=== PATIENT | male | born 1960 | race American Indian/Alaskan Native ===

== ENCOUNTER 2016-09-27 18:17 | Emergency (ER) | payer OTHER ==
--- NOTE | 2016-09-27 19:22 | EDM.PDOC ---
ED HISTORY OF PRESENT ILLNESS - General Chief Complaint: Chest Pain Stated Complaint: CHEST PAINS Time Seen by Provider: 09/27/16 19:16 Source of Information: Reports: Patient History Limitations: Reports: No limitations - History of Present Illness INITIAL COMMENTS - FREE TEXT/NARRATIVE: 56 yo [place] Male C/O chest pain 8/10 since Wed. Pt. PMHx. Diabetes and smokes 1/2 pack cigs per week. Pt. describes left anterior chest pain which radiates to left shoulder and Nausea but no emesis and no sweating and no radiation to neck Symptom Onset Date: 09/23/16 Symptom Onset Time: 12:00 Timing/Duration: Reports: Day(s): Severity: moderate Location, General: Reports: chest Quality: Reports: Ache - Related Data Allergies/ADRs: Allergies Allergy/AdvReac Type Severity Reaction Status Date / Time No Known Allergies Allergy Verified 08/04/16 14:23 Home Meds: Home Meds Insulin Aspart [NovoLOG] 30 units SQ TIDAC 07/18/13 [History] Insulin Detemir [Levemir] 72 unit SQ BID 07/18/13 [History] Simvastatin [Zocor] 10 mg PO DAILY 07/18/13 [History] sitaGLIPtin Phos/Metformin HCl [Janumet Xr 100-1,000 mg Tablet] 1 each PO BID [History] Aspirin [Aspirin EC] 1 tab PO DAILY 04/15/14 [History] Multivitamin 1 tab PO DAILY 04/15/14 [History] Pregabalin [Lyrica] 1 tab PO BID 04/15/14 [History] Lisinopril [Prinivil] 10 mg PO DAILY 08/16/15 [History] oxyCODONE HCl/Acetaminophen [Percocet 10-325 mg Tablet] 1 tab PO BID 08/04/16 [ History] Past Medical History - Past Health History Medical/Surgical History: Denies Medical/Surgical History HEENT History: Reports: None, Impaired vision Cardiovascular History: Reports: High cholesterol, Hypertension Respiratory History: Reports: None Genitourinary History: Reports: None Musculoskeletal History: Reports: None, Fracture Neurological History: Reports: None Psychiatric History: Reports: None Endocrine/Metabolic History: Reports: Diabetes, type II - Infectious Disease History Infectious Disease History: Reports: None, Chicken pox, Shingles - Past Surgical History Cardiovascular Surgical History: Reports: None Musculoskeletal Surgical History: Reports: Other (see below) Other Musculoskeletal Surgeries/Procedures:: hand surgery Social & Family History - Family History Family Medical History: Noncontributory HEENT: Reports: None Cardiac: Reports: None Respiratory: Reports: None GI: Reports: None - Tobacco Use Smoking Status *Q: Current Every Day Smoker Years of Tobacco use: 40 Packs/Tins Daily: 0.5 Used Tobacco, but Quit: No Second Hand Smoke Exposure: No - Caffeine Use Caffeine Use: Reports: Coffee, Energy drinks, Soda Caffeine Use Comment: coffee daily & 2 sodas daily average - Alcohol Use Days Per Week of Alcohol Use: 0 - Recreational Drug Use Recreational Drug Use: No ED ROS GENERAL - Review of Systems Review Of Systems: See Below Constitutional: Reports: no symptoms HEENT: Reports: No symptoms Respiratory: Reports: no symptoms Cardiovascular: Reports: Chest pain (left anterior) Endocrine: Reports: no symptoms GI/Abdominal: Reports: No symptoms : Reports: no symptoms Musculoskeletal: Reports: muscle pain (left lateral chest wall) Skin: Reports: no symptoms Neurological: Reports: no symptoms Psychiatric: Reports: No symptoms Hematologic/Lymphatic: Reports: no symptoms Immunologic: Reports: no symptoms ED EXAM, GENERAL - Physical Exam Exam: See Below Exam Limited By: No limitations General Appearance: alert, WD/WN, no apparent distress, obese Eye Exam: bilateral eye: PERRL Ears: normal external exam Nose: normal inspection Throat/Mouth: Normal inspection Head: atraumatic Neck: normal inspection Respiratory/Chest: no respiratory distress, lungs clear, normal breath sounds Cardiovascular: normal peripheral pulses, regular rate, rhythm, no edema, other (left lateral chest wall w/ min tenderness) Back Exam: normal inspection, full range of motion Extremities: normal inspection, normal range of motion Neurological: alert, oriented, CN II-XII intact Psychiatric: normal affect, normal mood Skin Exam: Warm, Dry, Intact Lymphatic: no adenopathy Course - Vital Signs Last Recorded V/S: Last Vital Signs Temp 36.2 C 09/27/16 20:12 Pulse 79 09/27/16 20:12 Resp 14 09/27/16 20:12 BP 123/67 09/27/16 20:12 Pulse Ox 97 09/27/16 20:12 - Orders/Labs/Meds Orders: Active Orders 24 hr Category Date Time Status EKG 12 Lead [EKG Documentation Completion] [RC] URGENT Care 09/27/16 19:17 Active Chest 2V [CR] Urgent Exams 09/27/16 19:20 Taken Sodium Chloride 0.9% [Normal Saline] 250 ml Med 09/27/16 19:30 Active IV ASDIRECTED Medication Orders Sodium Chloride (Normal Saline) 250 mls @ 100 mls/hr IV ASDIRECTED JAVI Labs: Laboratory Tests 09/27/16 09/27/16 09/27/16 Range/Units 19:23 19:23 19:23 WBC 8.6 (5.0-10.0) 10^3/uL RBC 4.35 L (4.6-6.2) 10^6/uL Hgb 13.6 L (14.0-18.0) g/dL Hct 39.5 L (40.0-54.0) % MCV 90.8 (80-100) fL MCH 31.3 (27.0-34.0) pg MCHC 34.4 (33.0-35.0) g/dL Plt Count 297 (150-450) 10^3/uL Neut % (Auto) 59.7 (42.2-75.2) % Lymph % (Auto) 28.5 (20.5-50.1) % [place] % (Auto) 8.3 H (2-8) % Eos % (Auto) 2.9 (1.0-3.0) % Baso % (Auto) 0.6 (0.0-1.0) % D-Dimer, Quantitative < 100 (0-400) ng/mL Sodium 136 (135-145) mmol/L Potassium 4.0 (3.6-5.0) mmol/L Chloride 103 (101-111) mmol/L Carbon Dioxide 26.0 (21.0-31.0) mmol/L Anion Gap 11.0 BUN 23 H (7-18) mg/dL Creatinine 0.8 (0.6-1.3) mg/dL Est Cr Clr Drug Dosing 111.12 mL/min Estimated GFR (MDRD) > 60 BUN/Creatinine Ratio 28.75 Glucose 279 H (74-105) mg/dL Calcium 9.3 (8.4-10.2) mg/dl Total Bilirubin 0.4 (0.2-1.0) mg/dL AST 18 (10-42) IU/L ALT 27 (10-60) IU/L Alkaline Phosphatase 71 (42-121) IU/L Troponin I < 0.02 (0.00-0.02) ng/ml Total Protein 7.0 (6.7-8.2) g/dl Albumin 3.8 (3.2-5.5) g/dl Globulin 3.2 Albumin/Globulin Ratio 1.19 Meds: Medications Generic Name Dose Route Start Last Admin Trade Name Freq PRN Reason Stop Dose Admin Sodium Chloride 250 mls @ 100 mls/hr 09/27/16 19:30 Normal Saline IV ASDIRECTED JAVI Discontinued Medications Generic Name Dose Route Start Last Admin Trade Name Freq PRN Reason Stop Dose Admin Acetaminophen 500 mg 09/27/16 20:33 Tylenol Extra Strength PO 09/27/16 20:34 ONETIME ONE Aspirin 324 mg 09/27/16 19:24 Aspirin PO 09/27/16 19:25 ONETIME ONE Departure - Departure Time of Disposition: 20:38 Disposition: Home, Self-Care 01 Condition: good Clinical Impression: Non-cardiac chest pain Forms: ED Department Discharge Additional Instructions: Rest Stop Smoking For PAin take Tylenol Extra Strength 500mg take 1 every 4-6 hours as needed F/U w/ PCP - My Orders Last 24 Hours: My Active Orders 09/27/16 19:17 EKG 12 Lead [EKG Documentation Completion] [RC] URGENT 09/27/16 19:20 Chest 2V [CR] Urgent 09/27/16 19:30 Sodium Chloride 0.9% [Normal Saline] 250 ml IV ASDIRECTED - Assessment/Plan Last 24 Hours: My Active Orders 09/27/16 19:17 EKG 12 Lead [EKG Documentation Completion] [RC] URGENT 09/27/16 19:20 Chest 2V [CR] Urgent 09/27/16 19:30 Sodium Chloride 0.9% [Normal Saline] 250 ml IV ASDIRECTED
[2016-09-27] MEDS ORDERED: Aspirin 81 MG Tab.Chew PO ONE (19:24)
[2016-09-27] MEDS ORDERED: Sodium Chloride 0.9% 250 ML IV SCH (19:30)
[2016-09-27 19:53] LABS: CHLORIDE,CL 103 mmol/L (101-111); SODIUM,NA 136 mmol/L (135-145)
[2016-09-27] MEDS ORDERED: Acetaminophen 500 MG Tab PO ONE (20:33)
[2016-09-27 20:56] VITALS: BP 130/67
--- NOTE | 2016-10-19 08:48 | EKG ---
09/27/2016- MARTA DAMON - This is a standard 12-lead EKG showing normal sinus rhythm with ventricular rateof 84 beats per minute. Normal TN interval. Normal QRS duration. Normal axis.No significant ST-T changes. Normal EKG. [facility] /[id number] MTDD
== END 2016-09-27 20:58 | disposition home or self-care (01) ==
LOC: DL.ED 18:17
DX: R07.89 Other chest pain (principal); E78.00 Pure hypercholesterolemia, unspecified; I10 Essential (primary) hypertension; E11.9 Type 2 diabetes mellitus without complications; F17.210 Nicotine dependence, cigarettes, uncomplicated; Z79.4 Long term (current) use of insulin; Z79.82 Long term (current) use of aspirin; Z79.899 Other long term (current) drug therapy
CPT/HCPCS: 36415; 71020; 80053; 84484; 85025; 85379; 93005; 99285; A9270

== ENCOUNTER 2016-12-16 22:06 | Emergency (ER) | payer OTHER ==
[2016-12-16 22:17] VITALS: BP 115/69
[2016-12-16 23:44] LABS: CHLORIDE,CL 101 mmol/L (101-111); SODIUM,NA 133 mmol/L (135-145)
--- NOTE | 2016-12-16 23:53 | EDM.PDOC ---
{null, ED HPI GENERAL MEDICAL PROBLEM - General Chief Complaint: Back Pain or Injury Stated Complaint: PAIN IN THE BACK Time Seen by Provider: 12/16/16 23:04 Source of Information: Reports: Patient History Limitations: Reports: No Limitations - History of Present Illness INITIAL COMMENTS - FREE TEXT/NARRATIVE: c/o right flank pain for past 3 months,intermittent, worse tonight, has not tried anything for medication. On oxycodone , flexeril and lyrica at home. Heat has helped in past but has not used today. 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) Treatments [employer]: Reports: Other Medication(s) Middle Back Pain Score (Numeric/FACES): 6 - Related Data Allergies Allergy/AdvReac Type Severity Reaction Status Date / Time No Known Allergies Allergy Verified 12/16/16 22:13 Home Meds: Home Meds Insulin Aspart [NovoLOG] 30 units SQ TIDAC 07/18/13 [History] Insulin Detemir [Levemir] 72 unit SQ BID 07/18/13 [History] Simvastatin [Zocor] 10 mg PO DAILY 07/18/13 [History] sitaGLIPtin Phos/Metformin HCl [Janumet Xr 100-1,000 mg Tablet] 1 each PO BID [History] Aspirin [Aspirin EC] 1 tab PO DAILY 04/15/14 [History] Multivitamin 1 tab PO DAILY 04/15/14 [History] Pregabalin [Lyrica] 1 tab PO BID 04/15/14 [History] Lisinopril [Prinivil] 10 mg PO DAILY 08/16/15 [History] oxyCODONE HCl/Acetaminophen [Percocet 10-325 mg Tablet] 1 tab PO BID 08/04/16 [ History] Past Medical History - Past Health History Medical/Surgical History: Denies Medical/Surgical History HEENT History: Reports: None, Impaired Vision Cardiovascular History: Reports: High Cholesterol, Hypertension Respiratory History: Reports: None Genitourinary History: Reports: None Musculoskeletal History: Reports: None, Fracture Neurological History: Reports: None Psychiatric History: Reports: None Endocrine/Metabolic History: Reports: Diabetes, Type II - Infectious Disease History Infectious Disease History: Reports: None, Chicken Pox, Shingles - Past Surgical History Musculoskeletal Surgical History: Reports: Other (See Below) Social & Family History - Family History Family Medical History: Noncontributory HEENT: Reports: None Cardiac: Reports: None Respiratory: Reports: None GI: Reports: None - Tobacco Use Smoking Status *Q: Current Some Day Smoker Years of Tobacco use: 40 Packs/Tins Daily: 0.1 Used Tobacco, but Quit: No Second Hand Smoke Exposure: No - Caffeine Use Caffeine Use: Reports: Coffee, Energy Drinks Caffeine Use Comment: coffee daily & 2 sodas daily average - Alcohol Use Days Per Week of Alcohol Use: 0 - Recreational Drug Use Recreational Drug Use: No ED ROS GENERAL - Review of Systems Review Of Systems: See Below Constitutional: Reports: No Symptoms HEENT: Reports: No Symptoms Respiratory: Reports: No Symptoms Cardiovascular: Reports: No Symptoms Endocrine: Reports: High Glucose (chronic) GI/Abdominal: Reports: No Symptoms : Reports: No Symptoms Musculoskeletal: Reports: Back Pain (right flank), Other (hx chronic low back pain) Skin: Reports: No Symptoms Neurological: Reports: No Symptoms ED EXAM,LOWER BACK PAIN/INJURY - Physical Exam Exam: See Below Exam Limited By: No Limitations General Appearance: Alert, No Apparent Distress, Obese Eye Exam: Bilateral Eye: PERRL Ears: Normal External Exam, Hearing Loss Throat/Mouth: Normal Inspection Neck: Normal Inspection, Full Range of Motion Respiratory/Chest: No Respiratory Distress, Lungs Clear Cardiovascular: Normal Peripheral Pulses, Regular Rate, Rhythm GI/Abdominal: Soft (round, truncal obesity) Back Exam: CVA Tenderness (R), Paraspinal Tenderness Extremities: Normal Inspection, Normal Range of Motion. No: Pedal Edema Neurological: Alert, Normal Mood/Affect, Normal Dorsiflexion, Oriented x 3, Straight Leg Raise (L) (negative), Straight Leg Raise (R) (negative). No: Abnormal Gait Skin Exam: Warm, Dry, Intact Course - Vital Signs Last Recorded V/S: Last Vital Signs Temp 97.5 F 12/16/16 22:13 Pulse 94 12/16/16 22:13 Resp 20 12/16/16 22:13 BP 115/69 12/16/16 22:13 Pulse Ox 97 12/16/16 22:13 - Orders/Labs/Meds Labs: Laboratory Tests 12/16/16 12/16/16 12/16/16 Range/Units 23:18 23:18 23:19 WBC 11.6 H (5.0-10.0) 10^3/uL RBC 4.67 (4.6-6.2) 10^6/uL Hgb 14.5 (14.0-18.0) g/dL Hct 42.3 (40.0-54.0) % MCV 90.6 (80-100) fL MCH 31.0 (27.0-34.0) pg MCHC 34.3 (33.0-35.0) g/dL Plt Count 309 (150-450) 10^3/uL Neut % (Auto) 70.3 (42.2-75.2) % Lymph % (Auto) 19.9 L (20.5-50.1) % [place] % (Auto) 6.8 (2-8) % Eos % (Auto) 2.5 (1.0-3.0) % Baso % (Auto) 0.5 (0.0-1.0) % Sodium 133 L (135-145) mmol/L Potassium 3.7 (3.6-5.0) mmol/L Chloride 101 (101-111) mmol/L Carbon Dioxide 26.0 (21.0-31.0) mmol/L Anion Gap 9.7 BUN 17 (7-18) mg/dL Creatinine 0.7 (0.6-1.3) mg/dL Est Cr Clr Drug Dosing 126.99 mL/min Estimated GFR (MDRD) > 60 BUN/Creatinine Ratio 24.28 Glucose 303 H (74-105) mg/dL Calcium 9.2 (8.4-10.2) mg/dl Total Bilirubin 0.5 (0.2-1.0) mg/dL AST 20 (10-42) IU/L ALT 30 (10-60) IU/L Alkaline Phosphatase 66 (42-121) IU/L Total Protein 7.5 (6.7-8.2) g/dl Albumin 4.0 (3.2-5.5) g/dl Globulin 3.5 Albumin/Globulin Ratio 1.14 Amylase 27 L (28-100) U/L Urine Color Yellow (YELLOW) Urine Appearance Clear (CLEAR) Urine pH 5.5 (5.0-9.0) Ur Specific [place] 1.020 (1.005-1.030) Urine Protein Negative (NEGATIVE) Urine Glucose (UA) 500 H (NEGATIVE) Urine Ketones Negative (NEGATIVE) Urine Occult Blood Negative (NEGATIVE) Urine Nitrite Negative (NEGATIVE) Urine Bilirubin Negative (NEGATIVE) Urine Urobilinogen 0.2 (0.2-1.0) mg/dL Ur Leukocyte Esterase Negative (NEGATIVE) Urine RBC 0-5 /HPF Urine WBC 0-5 (0-5/HPF) /HPF Ur Epithelial Cells Few /HPF Urine Mucus Occasional /LPF Urine Opiates Screen (NEGATIVE) Ur Oxycodone Screen (NEGATIVE) Urine Methadone Screen (NEGATIVE) Ur Barbiturates Screen (NEGATIVE) U Tricyclic Antidepress (NEGATIVE) Ur Phencyclidine Scrn (NEGATIVE) Ur Amphetamine Screen (NEGATIVE) U Methamphetamines Scrn (NEGATIVE) Urine MDMA Screen (NEGATIVE) U Benzodiazepines Scrn (NEGATIVE) Urine Cocaine Screen (NEGATIVE) U Marijuana (THC) Screen (NEGATIVE) 12/16/16 Range/Units 23:19 WBC (5.0-10.0) 10^3/uL RBC (4.6-6.2) 10^6/uL Hgb (14.0-18.0) g/dL Hct (40.0-54.0) % MCV (80-100) fL MCH (27.0-34.0) pg MCHC (33.0-35.0) g/dL Plt Count (150-450) 10^3/uL Neut % (Auto) (42.2-75.2) % Lymph % (Auto) (20.5-50.1) % [place] % (Auto) (2-8) % Eos % (Auto) (1.0-3.0) % Baso % (Auto) (0.0-1.0) % Sodium (135-145) mmol/L Potassium (3.6-5.0) mmol/L Chloride (101-111) mmol/L Carbon Dioxide (21.0-31.0) mmol/L Anion Gap BUN (7-18) mg/dL Creatinine (0.6-1.3) mg/dL Est Cr Clr Drug Dosing mL/min Estimated GFR (MDRD) BUN/Creatinine Ratio Glucose (74-105) mg/dL Calcium (8.4-10.2) mg/dl Total Bilirubin (0.2-1.0) mg/dL AST (10-42) IU/L ALT (10-60) IU/L Alkaline Phosphatase (42-121) IU/L Total Protein (6.7-8.2) g/dl Albumin (3.2-5.5) g/dl Globulin Albumin/Globulin Ratio Amylase (28-100) U/L Urine Color (YELLOW) Urine Appearance (CLEAR) Urine pH (5.0-9.0) Ur Specific [place] (1.005-1.030) Urine Protein (NEGATIVE) Urine Glucose (UA) (NEGATIVE) Urine Ketones (NEGATIVE) Urine Occult Blood (NEGATIVE) Urine Nitrite (NEGATIVE) Urine Bilirubin (NEGATIVE) Urine Urobilinogen (0.2-1.0) mg/dL Ur Leukocyte Esterase (NEGATIVE) Urine RBC /HPF Urine WBC (0-5/HPF) /HPF Ur Epithelial Cells /HPF Urine Mucus /LPF Urine Opiates Screen Negative (NEGATIVE) Ur Oxycodone Screen Positive H (NEGATIVE) Urine Methadone Screen Negative (NEGATIVE) Ur Barbiturates Screen Negative (NEGATIVE) U Tricyclic Antidepress Negative (NEGATIVE) Ur Phencyclidine Scrn Negative (NEGATIVE) Ur Amphetamine Screen Negative (NEGATIVE) U Methamphetamines Scrn Negative (NEGATIVE) Urine MDMA Screen Negative (NEGATIVE) U Benzodiazepines Scrn Negative (NEGATIVE) Urine Cocaine Screen Negative (NEGATIVE) U Marijuana (THC) Screen Negative (NEGATIVE) Departure - Departure Time of Disposition: 23:53 Disposition: Home, Self-Care 01 Condition: good Clinical Impression: Muscle spasm - Discharge Information Instructions: Chronic Back Pain Forms: ED Department Discharge Additional Instructions: follow with primary care ibuprofen 600mg every 8 hours as needed for pain warm pack to right flank area }
== END 2016-12-17 00:02 | disposition home or self-care (01) ==
LOC: DL.ED 22:06
DX: M62.830 Muscle spasm of back (principal); E78.00 Pure hypercholesterolemia, unspecified; I10 Essential (primary) hypertension; E11.9 Type 2 diabetes mellitus without complications; F17.210 Nicotine dependence, cigarettes, uncomplicated; Z79.4 Long term (current) use of insulin; Z79.82 Long term (current) use of aspirin; Z79.899 Other long term (current) drug therapy
CPT/HCPCS: 36415; 80053; 80305; 81001; 82150; 85025; 99283

== ENCOUNTER 2017-05-03 21:20 | Emergency (ER) | payer OTHER | END 2017-05-03 21:49 | disposition left against medical advice (07) | LOC: DL.ED 21:20 | DX: Z53.21 Procedure and treatment not carried out due to patient leaving prior to being seen by health care provider (principal) ==

== ENCOUNTER 2017-05-04 10:59 | Emergency (ER) | payer OTHER ==
--- NOTE | 2017-05-04 11:22 | EDM.PDOC ---
ED HPI GENERAL MEDICAL PROBLEM - General Chief Complaint: General Stated Complaint: PAIN IN [place] Time Seen by Provider: 05/04/17 11:22 Source of Information: Reports: Patient, RN, RN Notes Reviewed History Limitations: Reports: No Limitations - History of Present Illness INITIAL COMMENTS - FREE TEXT/NARRATIVE: Patient presents to the ER with c/o an abscess on his scrotum. Patient states he began noticing the area 2-3 days ago. He admits to aches and chills beginning yesterday, headaches for the past 2 days, and nausea for the past 24 hours. He states this has happened in the past and he was sent to in [place] where it was I&D'd and he was kept in the hospital for IV antibiotics for 4 days. Onset: Gradual Onset Date: 05/01/17 Duration: Constant, Getting Worse Location: Reports: Other (scrotum) Quality: Reports: Ache Severity: Severe Improves with: Reports: None Worsens with: Reports: None Associated Symptoms: Reports: Fever/Chills, Headaches, Nausea/Vomiting Perineal Area Pain Score (Numeric/FACES): 10 - Related Data Allergies Allergy/AdvReac Type Severity Reaction Status Date / Time No Known Allergies Allergy Verified 12/16/16 22:13 Home Meds: Home Meds Insulin Aspart [NovoLOG] 25 units SQ TIDAC 07/18/13 [History] Insulin Detemir [Levemir] 85 unit SQ BID 07/18/13 [History] Simvastatin [Zocor] 20 mg PO DAILY 07/18/13 [History] sitaGLIPtin Phos/Metformin HCl [Janumet Xr 100-1,000 mg Tablet] 1 each PO BID [History] Aspirin [Aspirin EC] 1 tab PO DAILY 04/15/14 [History] Multivitamin 1 tab PO DAILY 04/15/14 [History] Pregabalin [Lyrica] 1 tab PO BID 04/15/14 [History] Lisinopril [Prinivil] 10 mg PO DAILY 08/16/15 [History] oxyCODONE HCl/Acetaminophen [Percocet 10-325 mg Tablet] 1 tab PO BID 08/04/16 [ History] Past Medical History - Past Health History Medical/Surgical History: Denies Medical/Surgical History HEENT History: Reports: Impaired Vision Cardiovascular History: Reports: High Cholesterol, Hypertension Respiratory History: Reports: None Genitourinary History: Reports: None Musculoskeletal History: Reports: Fracture Neurological History: Reports: None Psychiatric History: Reports: None Endocrine/Metabolic History: Reports: Diabetes, Type II - Infectious Disease History Infectious Disease History: Reports: Chicken Pox, Shingles - Past Surgical History Musculoskeletal Surgical History: Reports: Other (See Below) Social & Family History - Family History Family Medical History: Noncontributory HEENT: Reports: None Cardiac: Reports: None Respiratory: Reports: None GI: Reports: None - Tobacco Use Smoking Status *Q: Current Some Day Smoker Years of Tobacco use: 40 Packs/Tins Daily: 0.1 Used Tobacco, but Quit: No Second Hand Smoke Exposure: No - Caffeine Use Caffeine Use: Reports: Coffee, Soda Caffeine Use Comment: coffee daily & 2 sodas daily average - Alcohol Use Days Per Week of Alcohol Use: 0 - Recreational Drug Use Recreational Drug Use: No ED ROS GENERAL - Review of Systems Review Of Systems: ROS reveals no pertinent complaints other than HPI. ED EXAM, GENERAL - Physical Exam Exam: See Below Exam Limited By: No Limitations General Appearance: Alert, WD/WN, No Apparent Distress Eye Exam: Bilateral Eye: Normal Inspection, PERRL Ears: Normal External Exam, Hearing Grossly Normal Nose: Normal Inspection Throat/Mouth: Normal Inspection, Normal Lips, Normal Voice, No Airway Compromise Head: Atraumatic, Normocephalic Neck: Normal Inspection, Supple, Non-Tender, Full Range of Motion Respiratory/Chest: No Respiratory Distress, Lungs Clear, Normal Breath Sounds, No Accessory Muscle Use, Chest Non-Tender Cardiovascular: Normal Peripheral Pulses, Regular Rate, Rhythm, No Edema, No Gallop, No JVD, No Murmur, No Rub GI/Abdominal: Normal Bowel Sounds, Soft (Male) Exam: Scrotal Swelling, Scrotum Tenderness (L), Scrotum Tenderness (R) , Other (4.5cmx3.5cm abscess on the scrotum/penis shaft. Area is erythematous, hard, and warm with a necrotic appearing area in the center. ) Rectal (Males) Exam: Deferred Back Exam: Normal Inspection, Full Range of Motion, NT Extremities: Normal Inspection, Normal Range of Motion, Non-Tender, Normal Capillary Refill, No Pedal Edema Neurological: Alert, Oriented, Normal Cognition, Normal Gait, No Motor/Sensory Deficits Psychiatric: Normal Affect, Normal Mood Skin Exam: Warm, Erythema, Wound/Incision (scrotum) Lymphatic: No Adenopathy Course - Vital Signs Last Recorded V/S: Last Vital Signs Temp 98 F 05/04/17 12:42 Pulse 80 05/04/17 12:42 Resp 16 05/04/17 12:42 BP 130/73 05/04/17 12:42 Pulse Ox 95 05/04/17 12:42 - Orders/Labs/Meds Orders: Active Orders 24 hr Category Date Time Status Peripheral IV Care [RC] . DIRECTED Care 05/04/17 11:33 Active CULTURE BLOOD [BC] Stat Lab 05/04/17 11:40 Received CULTURE BLOOD [BC] Stat Lab 05/04/17 11:48 Received Blood Culture x2 Reflex Set [OM.PC] Stat Oth 05/04/17 11:30 Ordered Peripheral IV Insertion Adult [OM.PC] Stat Oth 05/04/17 11:33 Ordered Labs: Laboratory Tests 05/04/17 05/04/17 05/04/17 Range/Units 11:40 11:40 11:40 WBC 12.5 H (5.0-10.0) 10^3/uL RBC 4.38 L (4.6-6.2) 10^6/uL Hgb 13.7 L (14.0-18.0) g/dL Hct 39.9 L (40.0-54.0) % MCV 91.1 (80-100) fL MCH 31.3 (27.0-34.0) pg MCHC 34.3 (33.0-35.0) g/dL Plt Count 266 (150-450) 10^3/uL Neut % (Auto) 79.9 H (42.2-75.2) % Lymph % (Auto) 12.2 L (20.5-50.1) % [place] % (Auto) 6.1 (2-8) % Eos % (Auto) 1.4 (1.0-3.0) % Baso % (Auto) 0.4 (0.0-1.0) % Sodium 133 L (135-145) mmol/L Potassium 4.5 (3.6-5.0) mmol/L Chloride 99 L (101-111) mmol/L Carbon Dioxide 24.0 (21.0-31.0) mmol/L Anion Gap 14.5 BUN 16 (7-18) mg/dL Creatinine 0.7 (0.6-1.3) mg/dL Est Cr Clr Drug Dosing TNP Estimated GFR (MDRD) > 60 BUN/Creatinine Ratio 22.85 Glucose 368 H (74-105) mg/dL Lactic Acid 1.7 (0.5-2.2) mmol/L Calcium 8.9 (8.4-10.2) mg/dl Total Bilirubin 0.9 (0.2-1.0) mg/dL AST 20 (10-42) IU/L ALT 24 (10-60) IU/L Alkaline Phosphatase 67 (42-121) IU/L Total Protein 7.4 (6.7-8.2) g/dl Albumin 3.8 (3.2-5.5) g/dl Globulin 3.6 Albumin/Globulin Ratio 1.06 Meds: Medications Discontinued Medications Generic Name Dose Route Start Last Admin Trade Name Freq PRN Reason Stop Dose Admin Hydromorphone HCl 0.5 mg 05/04/17 11:33 05/04/17 11:47 Dilaudid IVPUSH 05/04/17 11:34 0.5 mg ONETIME ONE Administration Ceftriaxone Sodium 1 gm/ 50 mls @ 100 mls/hr 05/04/17 12:28 05/04/17 12:41 Sodium Chloride IV 05/04/17 12:57 100 mls/hr ONETIME ONE Administration Sodium Chloride 10 ml 05/04/17 11:33 05/04/17 11:48 Saline Flush FLUSH 10 ml ASDIRECTED PRN Administration Keep Vein Open - Re-Assessments/Exams Free Text/Narrative Re-Assessment/Exam: 05/04/17 12:47 [facility] call contacted for possible transfer of the patient for possible surgical debridement of scrotal abscess. Dr. Ribeiro was asked what antibiotics were recommended and he offered ceftriaxone. Departure - Departure Time of Disposition: 12:42 Disposition: DC/Tfer to Acute Hospital 02 Condition: Good Clinical Impression: Scrotal abscess - Discharge Information Referrals: PCP,None [Primary Care Provider] - Forms: ED Department Discharge, Interfacility Transfer EMTALA - My Orders Last 24 Hours: My Active Orders 05/04/17 11:30 Blood Culture x2 Reflex Set [OM.PC] Stat 05/04/17 11:33 Peripheral IV Care [RC] . DIRECTED Peripheral IV Insertion Adult [OM.PC] Stat 05/04/17 11:40 CULTURE BLOOD [BC] Stat 05/04/17 11:48 CULTURE BLOOD [BC] Stat - Assessment/Plan Last 24 Hours: My Active Orders 05/04/17 11:30 Blood Culture x2 Reflex Set [OM.PC] Stat 05/04/17 11:33 Peripheral IV Care [RC] . DIRECTED Peripheral IV Insertion Adult [OM.PC] Stat 05/04/17 11:40 CULTURE BLOOD [BC] Stat 05/04/17 11:48 CULTURE BLOOD [BC] Stat
[2017-05-04] MEDS ORDERED: Sodium Chloride 0.9% 10 ML Syringe FLUSH PRN (11:33)
[2017-05-04] MEDS ORDERED: HYDROmorphone 1 MG/ML Syringe IVPUSH ONE (11:33)
[2017-05-04 12:15] LABS: CHLORIDE,CL 99 mmol/L (101-111); SODIUM,NA 133 mmol/L (135-145)
[2017-05-04] MEDS ORDERED: cefTRIAXone 1 GM in Sodium Chloride 0.9% 50 ML IV ONE (12:28)
[2017-05-04 12:49] VITALS: BP 130/73
== END 2017-05-04 12:55 ==
LOC: DL.ED 10:59
DX: N49.2 Inflammatory disorders of scrotum (principal); I10 Essential (primary) hypertension; E78.00 Pure hypercholesterolemia, unspecified; E11.9 Type 2 diabetes mellitus without complications; F17.210 Nicotine dependence, cigarettes, uncomplicated; Z79.82 Long term (current) use of aspirin; Z79.4 Long term (current) use of insulin; Z79.899 Other long term (current) drug therapy
CPT/HCPCS: 36415; 80053; 83605; 85025; 87040; 96365; 96375; 99285; J0696; J1170; J7050

== ENCOUNTER 2017-07-14 00:21 | Emergency (ER) | payer OTHER ==
--- NOTE | 2017-07-14 03:42 | EDM.PDOC ---
ED HPI GENERAL MEDICAL PROBLEM - General Chief Complaint: General Stated Complaint: FELL 07/13, RENETTA MICHEL [id number] Time Seen by Provider: 07/14/17 00:45 Source of Information: Reports: Patient History Limitations: Reports: No Limitations - History of Present Illness INITIAL COMMENTS - FREE TEXT/NARRATIVE: c/o pain to left anterior ribs after slipping on ice and falling to ground yesterday afternoon. Increased pain with movement. Left Lower Chest Pain Score (Numeric/FACES): 7 - Related Data Allergies Allergy/AdvReac Type Severity Reaction Status Date / Time No Known Allergies Allergy Verified 07/14/17 00:51 Home Meds: Home Meds Insulin Aspart [NovoLOG] 25 units SQ TIDAC 07/18/13 [History] Insulin Detemir [Levemir] 85 unit SQ BID 07/18/13 [History] Simvastatin [Zocor] 20 mg PO DAILY 07/18/13 [History] sitaGLIPtin Phos/Metformin HCl [Janumet Xr 100-1,000 mg Tablet] 1 each PO BID [History] Aspirin [Aspirin EC] 1 tab PO DAILY 04/15/14 [History] Multivitamin 1 tab PO DAILY 04/15/14 [History] Pregabalin [Lyrica] 1 tab PO BID 04/15/14 [History] Lisinopril [Prinivil] 10 mg PO DAILY 08/16/15 [History] oxyCODONE HCl/Acetaminophen [Percocet 10-325 mg Tablet] 1 tab PO BID 08/04/16 [ History] Past Medical History - Past Health History Medical/Surgical History: Denies Medical/Surgical History HEENT History: Reports: Impaired Vision Cardiovascular History: Reports: High Cholesterol, Hypertension Respiratory History: Reports: None Genitourinary History: Reports: None Musculoskeletal History: Reports: Fracture Neurological History: Reports: None Psychiatric History: Reports: None Endocrine/Metabolic History: Reports: Diabetes, Type II - Infectious Disease History Infectious Disease History: Reports: Chicken Pox, Shingles - Past Surgical History Musculoskeletal Surgical History: Reports: Other (See Below) Social & Family History - Family History Family Medical History: Noncontributory HEENT: Reports: None Cardiac: Reports: None Respiratory: Reports: None GI: Reports: None - Tobacco Use Smoking Status *Q: Current Some Day Smoker Years of Tobacco use: 41 Packs/Tins Daily: 8 Used Tobacco, but Quit: No Second Hand Smoke Exposure: No - Caffeine Use Caffeine Use: Reports: Coffee, Energy Drinks, Soda, Tea Caffeine Use Comment: coffee daily & 2 sodas daily average - Alcohol Use Days Per Week of Alcohol Use: 0 - Recreational Drug Use Recreational Drug Use: No ED ROS GENERAL - Review of Systems Review Of Systems: See Below Constitutional: Reports: No Symptoms HEENT: Reports: No Symptoms Respiratory: Reports: Pleuritic Chest Pain Cardiovascular: Reports: No Symptoms GI/Abdominal: Reports: No Symptoms Musculoskeletal: Reports: Other (left rib pain) Skin: Denies: Bruising Neurological: Reports: No Symptoms Psychiatric: Reports: No Symptoms ED EXAM, GENERAL - Physical Exam Exam: See Below Exam Limited By: No Limitations General Appearance: Alert, No Apparent Distress Eye Exam: Bilateral Eye: EOMI Ears: Normal External Exam Nose: Normal Inspection Throat/Mouth: Normal Inspection Head: Atraumatic, Normocephalic Respiratory/Chest: No Respiratory Distress, Lungs Clear, Normal Breath Sounds, Other (anterolateral left rib pain with palpation, no bruising) Cardiovascular: Normal Peripheral Pulses, Regular Rate, Rhythm GI/Abdominal: Normal Bowel Sounds, Soft, Non-Tender Extremities: Normal Inspection Neurological: Alert, Oriented, Normal Cognition Psychiatric: Normal Affect Skin Exam: Warm, Dry, Intact, Normal Color Course - Vital Signs Last Recorded V/S: Last Vital Signs Temp 96.9 F 07/14/17 03:48 Pulse 83 07/14/17 03:48 Resp 16 07/14/17 03:48 BP 125/64 07/14/17 03:48 Pulse Ox 94 L 07/14/17 03:48 Departure - Departure Time of Disposition: 03:39 Disposition: Home, Self-Care 01 Condition: Good Clinical Impression: Rib pain on left side - Discharge Information Instructions: Rib Contusion Referrals: PCP,None [Primary Care Provider] - Forms: ED Department Discharge Additional Instructions: rest home medications per primary provider warm towel to left lower chest ibuprofen 600mg every 6 hours deep breathing every hour while awake
[2017-07-14 03:49] VITALS: BP 125/64
== END 2017-07-14 03:51 | disposition home or self-care (01) ==
LOC: DL.ED 00:21
DX: R07.81 Pleurodynia (principal); E11.9 Type 2 diabetes mellitus without complications; F17.210 Nicotine dependence, cigarettes, uncomplicated; Z79.4 Long term (current) use of insulin; Z79.82 Long term (current) use of aspirin; Z79.899 Other long term (current) drug therapy; W00.0XXA Fall on same level due to ice and snow, initial encounter
CPT/HCPCS: 71101-LT; 99283

== ENCOUNTER 2018-02-03 22:18 | Emergency (ER) | payer OTHER ==
[2018-02-04 00:29] LABS: CHLORIDE,CL 100 mmol/L (101-111); SODIUM,NA 134 mmol/L (135-145)
[2018-02-04] MEDS ORDERED: Sodium Chloride 0.9% 1,000 ML IV ONE (00:58)
[2018-02-04] MEDS ORDERED: Sodium Chloride 0.9% 10 ML Syringe FLUSH PRN (00:58)
[2018-02-04] MEDS ORDERED: Levofloxacin/Dextrose 5%-Water 500 MG in Premix Bag 1 BAG IV ONE (00:58)
--- NOTE | 2018-02-04 02:39 | EDM.PDOC ---
ED HPI GENERAL MEDICAL PROBLEM - General Chief Complaint: Abdominal Pain Stated Complaint: [id number] ab PAIN AND LOWER BACK PAIN Time Seen by Provider: 02/04/18 00:50 Source of Information: Reports: Patient, RN, RN Notes Reviewed History Limitations: Reports: No Limitations - History of Present Illness INITIAL COMMENTS - FREE TEXT/NARRATIVE: Pt to ER with c/o low abdominal pain, wraps around to the back, and urination slowing. He states symptoms began about 3-4 days ago and getting much worse yesterday and today. Patient admits to chills, fever, lethargy, and nausea. Patient also c/o swelling to the left lower leg, with some bruising to the inside of the left ankle. Denies trauma or injury Onset: Gradual Bilateral Lower Abdomen Pain Score (Numeric/FACES): 7 - Related Data Allergies Allergy/AdvReac Type Severity Reaction Status Date / Time No Known Allergies Allergy Verified 02/03/18 23:02 Home Meds: Home Meds Insulin Aspart [NovoLOG] 30 units SQ TIDAC 07/18/13 [History] Insulin Detemir [Levemir] 100 unit SQ BID 07/18/13 [History] Simvastatin [Zocor] 20 mg PO DAILY 07/18/13 [History] sitaGLIPtin Phos/Metformin HCl [Janumet Xr 100-1,000 mg Tablet] 1 each PO BID [History] Aspirin [Aspirin EC] 1 tab PO DAILY 04/15/14 [History] Multivitamin 1 tab PO DAILY 04/15/14 [History] Pregabalin [Lyrica] 1 tab PO BID 04/15/14 [History] Lisinopril [Prinivil] 10 mg PO DAILY 08/16/15 [History] Past Medical History - Past Health History Medical/Surgical History: Denies Medical/Surgical History HEENT History: Reports: Impaired Vision Cardiovascular History: Reports: High Cholesterol, Hypertension Respiratory History: Reports: None Genitourinary History: Reports: None Musculoskeletal History: Reports: Fracture Neurological History: Reports: None Psychiatric History: Reports: None Endocrine/Metabolic History: Reports: Diabetes, Type II - Infectious Disease History Infectious Disease History: Reports: Chicken Pox, Shingles - Past Surgical History Musculoskeletal Surgical History: Reports: Other (See Below) Other Musculoskeletal Surgeries/Procedures:: hand surgery Social & Family History - Family History Family Medical History: Noncontributory HEENT: Reports: None Cardiac: Reports: None Respiratory: Reports: None GI: Reports: None - Tobacco Use Smoking Status *Q: Current Some Day Smoker Years of Tobacco use: 40 Packs/Tins Daily: 0.1 Second Hand Smoke Exposure: Yes - Caffeine Use Caffeine Use: Reports: Coffee, Energy Drinks, Soda, Tea Caffeine Use Comment: coffee daily & 2 sodas daily average - Recreational Drug Use Recreational Drug Use: No - Living Situation & Occupation Living situation: Reports: with Family ED ROS GENERAL - Review of Systems Review Of Systems: ROS reveals no pertinent complaints other than HPI. ED EXAM, RENAL/ - Physical Exam Exam: See Below Exam Limited By: No Limitations General Appearance: Alert, WD/WN, No Apparent Distress Eye Exam: Bilateral Eye: EOMI, Normal Inspection Ears: Normal External Exam, Hearing Grossly Normal Nose: Normal Inspection Throat/Mouth: Normal Inspection, Normal Voice, No Airway Compromise Head: Atraumatic, Normocephalic Neck: Normal Inspection, Supple, Non-Tender, Full Range of Motion Respiratory/Chest: No Respiratory Distress, Lungs Clear, Normal Breath Sounds, No Accessory Muscle Use, Chest Non-Tender Cardiovascular: Normal Peripheral Pulses, Regular Rate, Rhythm, No Edema, No Gallop, No JVD, No Murmur, No Rub GI/Abdominal: Normal Bowel Sounds, Soft, Tender (Male) Exam: Deferred Rectal (Males) Exam: Deferred Back Exam: Normal Inspection, CVA Tenderness (L), CVA Tenderness (R) Extremities: Normal Range of Motion, Joint Swelling (left ankle). No: Leg Pain , Increased Warmth, Redness Neurological: Alert, Oriented, CN II-XII Intact, Normal Cognition, Normal Gait, Normal Reflexes, No Motor/Sensory Deficits Psychiatric: Normal Affect, Normal Mood Skin Exam: Warm, Dry, Intact, Normal Color, No Rash Lymphatic: No Adenopathy Course - Vital Signs Last Recorded V/S: Last Vital Signs Temp 98.4 F 02/04/18 02:51 Pulse 84 02/04/18 02:51 Resp 18 02/04/18 02:51 BP 124/63 02/04/18 02:51 Pulse Ox 97 02/04/18 02:51 - Orders/Labs/Meds Orders: Active Orders 24 hr Category Date Time Status Peripheral IV Care [RC] . DIRECTED Care 02/04/18 00:58 Active Peripheral IV Insertion Adult [OM.PC] Stat Oth 02/04/18 00:58 Ordered Labs: Laboratory Tests 02/03/18 02/03/18 02/04/18 Range/Units 23:07 23:07 00:06 WBC 15.3 H (5.0-10.0) 10^3/uL RBC 4.29 L (4.6-6.2) 10^6/uL Hgb 13.6 L (14.0-18.0) g/dL Hct 39.9 L (40.0-54.0) % MCV 93.0 (80-100) fL MCH 31.7 (27.0-34.0) pg MCHC 34.1 (33.0-35.0) g/dL Plt Count 296 (150-450) 10^3/uL Neut % (Auto) 86.1 H (42.2-75.2) % Lymph % (Auto) 7.3 L (20.5-50.1) % [place] % (Auto) 5.5 (2-8) % Eos % (Auto) 0.8 L (1.0-3.0) % Baso % (Auto) 0.3 (0.0-1.0) % Sodium (135-145) mmol/L Potassium (3.6-5.0) mmol/L Chloride (101-111) mmol/L Carbon Dioxide (21.0-31.0) mmol/L Anion Gap BUN (7-18) mg/dL Creatinine (0.6-1.3) mg/dL Est Cr Clr Drug Dosing mL/min Estimated GFR (MDRD) BUN/Creatinine Ratio Glucose Calcium (8.4-10.2) mg/dl Total Bilirubin (0.2-1.0) mg/dL AST (10-42) IU/L ALT (10-60) IU/L Alkaline Phosphatase (42-121) IU/L Total Protein (6.7-8.2) g/dl Albumin (3.2-5.5) g/dl Globulin Albumin/Globulin Ratio Urine Color Dark yellow (YELLOW) Urine Appearance Cloudy (CLEAR) Urine pH 5.5 (5.0-9.0) Ur Specific [place] 1.025 (1.005-1.030) Urine Protein 100 H (NEGATIVE) Urine Glucose (UA) 500 H (NEGATIVE) Urine Ketones Negative (NEGATIVE) Urine Occult Blood Large H (NEGATIVE) Urine Nitrite Positive H (NEGATIVE) Urine Bilirubin Negative (NEGATIVE) Urine Urobilinogen 0.2 (0.2-1.0) mg/dL Ur Leukocyte Esterase Small H (NEGATIVE) Urine RBC >100 H /HPF Urine WBC 10-20 H (0-5/HPF) /HPF Ur Epithelial Cells Rare /HPF Urine Bacteria Many H (0-FEW/HPF) /HPF Urine Mucus Few H /LPF Urine Opiates Screen Positive H (NEGATIVE) Ur Oxycodone Screen Negative (NEGATIVE) Urine Methadone Screen Negative (NEGATIVE) Ur Barbiturates Screen Negative (NEGATIVE) U Tricyclic Antidepress Negative (NEGATIVE) Ur Phencyclidine Scrn Negative (NEGATIVE) Ur Amphetamine Screen Negative (NEGATIVE) U Methamphetamines Scrn Negative (NEGATIVE) Urine MDMA Screen Negative (NEGATIVE) U Benzodiazepines Scrn Negative (NEGATIVE) Urine Cocaine Screen Negative (NEGATIVE) U Marijuana (THC) Screen Negative (NEGATIVE) 02/04/18 Range/Units 00:06 WBC (5.0-10.0) 10^3/uL RBC (4.6-6.2) 10^6/uL Hgb (14.0-18.0) g/dL Hct (40.0-54.0) % MCV (80-100) fL MCH (27.0-34.0) pg MCHC (33.0-35.0) g/dL Plt Count (150-450) 10^3/uL Neut % (Auto) (42.2-75.2) % Lymph % (Auto) (20.5-50.1) % [place] % (Auto) (2-8) % Eos % (Auto) (1.0-3.0) % Baso % (Auto) (0.0-1.0) % Sodium 134 L (135-145) mmol/L Potassium 4.0 (3.6-5.0) mmol/L Chloride 100 L (101-111) mmol/L Carbon Dioxide 25.0 (21.0-31.0) mmol/L Anion Gap 13.0 BUN 19 H (7-18) mg/dL Creatinine 1.0 (0.6-1.3) mg/dL Est Cr Clr Drug Dosing 87.85 mL/min Estimated GFR (MDRD) > 60 BUN/Creatinine Ratio 19.00 Glucose TNP Calcium 9.1 (8.4-10.2) mg/dl Total Bilirubin 0.7 (0.2-1.0) mg/dL AST 17 (10-42) IU/L ALT 22 (10-60) IU/L Alkaline Phosphatase 70 (42-121) IU/L Total Protein 7.5 (6.7-8.2) g/dl Albumin 3.9 (3.2-5.5) g/dl Globulin 3.6 Albumin/Globulin Ratio 1.08 Urine Color (YELLOW) Urine Appearance (CLEAR) Urine pH (5.0-9.0) Ur Specific [place] (1.005-1.030) Urine Protein (NEGATIVE) Urine Glucose (UA) (NEGATIVE) Urine Ketones (NEGATIVE) Urine Occult Blood (NEGATIVE) Urine Nitrite (NEGATIVE) Urine Bilirubin (NEGATIVE) Urine Urobilinogen (0.2-1.0) mg/dL Ur Leukocyte Esterase (NEGATIVE) Urine RBC /HPF Urine WBC (0-5/HPF) /HPF Ur Epithelial Cells /HPF Urine Bacteria (0-FEW/HPF) /HPF Urine Mucus /LPF Urine Opiates Screen (NEGATIVE) Ur Oxycodone Screen (NEGATIVE) Urine Methadone Screen (NEGATIVE) Ur Barbiturates Screen (NEGATIVE) U Tricyclic Antidepress (NEGATIVE) Ur Phencyclidine Scrn (NEGATIVE) Ur Amphetamine Screen (NEGATIVE) U Methamphetamines Scrn (NEGATIVE) Urine MDMA Screen (NEGATIVE) U Benzodiazepines Scrn (NEGATIVE) Urine Cocaine Screen (NEGATIVE) U Marijuana (THC) Screen (NEGATIVE) Meds: Medications Discontinued Medications Generic Name Dose Route Start Last Admin Trade Name Freq PRN Reason Stop Dose Admin Levofloxacin/Dextrose 500 mg/ 100 mls @ 100 mls/hr 02/04/18 00:58 02/04/18 01 :09 Premix IV 02/04/18 01:57 100 mls/hr ONETIME ONE Administration Sodium Chloride 1,000 mls @ 999 mls/hr 02/04/18 00:58 02/04/18 01:09 Normal Saline IV 02/04/18 01:58 999 mls/hr .BOLUS ONE Administration Sodium Chloride 10 ml 02/04/18 00:58 02/04/18 01:10 Saline Flush FLUSH 10 ml ASDIRECTED PRN Administration Keep Vein Open Departure - Departure Time of Disposition: 02:43 Disposition: Home, Self-Care 01 Condition: Fair Clinical Impression: Pyelonephritis - Discharge Information Instructions: Pyelonephritis, Adult, [id number] Referrals: PCP,None [Primary Care Provider] - Forms: ED Department Discharge Additional Instructions: RX: Levaquin Drink plenty of water Elevate feet as tolerated May ice the left lower leg as tolerated - My Orders Last 24 Hours: My Active Orders 02/04/18 00:58 Peripheral IV Care [RC] . DIRECTED Peripheral IV Insertion Adult [OM.PC] Stat - Assessment/Plan Last 24 Hours: My Active Orders 02/04/18 00:58 Peripheral IV Care [RC] . DIRECTED Peripheral IV Insertion Adult [OM.PC] Stat
[2018-02-04 02:58] VITALS: BP 124/63
== END 2018-02-04 02:54 | disposition home or self-care (01) ==
LOC: DL.ED 22:18
DX: N12 Tubulo-interstitial nephritis, not specified as acute or chronic (principal); E78.00 Pure hypercholesterolemia, unspecified; I10 Essential (primary) hypertension; E11.9 Type 2 diabetes mellitus without complications; F17.210 Nicotine dependence, cigarettes, uncomplicated; Z79.4 Long term (current) use of insulin; Z79.899 Other long term (current) drug therapy; Z79.82 Long term (current) use of aspirin
CPT/HCPCS: 36415; 74176; 80053; 80305; 81001; 85025; 96361; 96365; 99284; J1956; J7030; J7050

== ENCOUNTER 2018-03-22 06:09 | Day surgery (SDC) | payer OTHER ==
[~2018-03-22 06:09] MED LIST: Dextrose 5%-0.45% NaCl 1,000 ML IV SCH; Sodium Chloride 0.9% 10 ML Syringe FLUSH PRN
[2018-03-22] MEDS ORDERED: fentaNYL 100 MCG/2 ML SDV IV ONE ×3 (06:10→06:55)
[2018-03-22] MEDS ORDERED: Midazolam 1 MG/ML 2 ML SDV IV ONE ×7 (06:10→07:08)
[2018-03-22] MEDS ORDERED: Midazolam 1 MG/ML 2 ML SDV ONE (06:20)
[2018-03-22] MEDS ORDERED: fentaNYL 100 MCG/2 ML SDV ONE (06:20)
[2018-03-22] MEDS ORDERED: Dextrose 5%-0.45% NaCl 1,000 ML IV SCH (06:27)
--- NOTE | 2018-03-22 07:59 | OR ---
DATE: 03/22/2018 ADDENDUM: INSTRUMENT USED: Olympus distal disposable device. [facility] /[id number]
--- NOTE | 2018-03-22 08:11 | OR ---
DATE: 03/22/2018 PROCEDURE PERFORMED: Total colonoscopy. INSTRUMENT USED: CF-H180AL Olympus video colonoscope. PREMEDICATIONS: Fentanyl 100 mcg intravenous, Versed 4 mg intravenous. Nasal O2 cannula. The procedure was done under pulse oximetry, BP recording, and cafeteria monitor. INDICATION: Screening colonoscopic examination is done for detection of any polypoid lesions and removal, endoscopic hemostasis therapy if needed. Initial rectal exam showed BPH. Rigid anoscopy was normal. DESCRIPTION OF PROCEDURE: The colonoscope was passed with relative ease up to the ileocecal area. Photographs were taken of the cecum identified by double- bulged ileocecal folds. No bleeding was noted from any of the visualized areas at the commencement of the examination. Pigmentation of the colonic mucosa was noted, consistent with melanosis coli. A few scattered diverticula were noted in the distal left colon. The examination was inadequate due to the presence of large amount of the stool material, especially solid in consistency that not be aspirated clear. No stricture. No vascular ectasia. No large or isolated ulcerations seen. No evidence of diffuse inflammatory bowel disease in the form of friability, contact bleeding, or ulcerations. No polyp or tumor mass identified. Probing the proximal sides of folds and flexures, using adequate distention and clearing up the stool material, withdrawal of the scope was made, cecum to rectum time over 6 minutes. No bleeding was noted from any of the visualized areas at the completion of examination. IMPRESSION: 1. Melanosis coli. 2. Diverticulosis. The patient tolerated the procedure well. [facility] /[id number]
[2018-03-22 09:39] VITALS: BP 120/64
--- NOTE | 2018-03-22 10:35 | LETTER ---
03/22/2018 Velia Moralez MD [facility] [address] [place] [address] RE: MARTA KOCH : [address] Moralez: Mr. Marta Koch had colonoscopic examination done this morning and he tolerated the procedure well. I herewith send a copy of the endoscopy note and photographs for your review. He had an inadequate exam due to the presence of large amount of fecal material that could not be aspirated clear. He has to be rescheduled for a colonoscopy later with a 2-day bowel preparation. Thank you. Sincerely, [facility] /[id number]
== END 2018-03-22 09:35 | disposition home or self-care (01) ==
LOC: DL.ENDO 06:09
PROVIDERS: ATTEND Internal Medicine Gastroenterology
DX: Z12.11 Encounter for screening for malignant neoplasm of colon (principal); K63.89 Other specified diseases of intestine; K57.30 Diverticulosis of large intestine without perforation or abscess without bleeding; I10 Essential (primary) hypertension; E11.9 Type 2 diabetes mellitus without complications; Z79.4 Long term (current) use of insulin; F17.210 Nicotine dependence, cigarettes, uncomplicated; E66.09 Other obesity due to excess calories; E78.5 Hyperlipidemia, unspecified
CPT/HCPCS: J2250; J3010; J7042

== ENCOUNTER 2018-08-24 17:47 | Emergency (ER) | payer OTHER ==
[2018-08-24 18:55] VITALS: BP 130/72
--- NOTE | 2018-08-24 19:24 | EDM.PDOC ---
<Shana Brown - Last Filed: 08/24/18 19:32> ED HPI GENERAL MEDICAL PROBLEM - General Chief Complaint: ENT Problem Stated Complaint: ABSECC ON UPPER TOOTH, CHEST COLD Time Seen by Provider: 08/24/18 19:05 Source of Information: Reports: Patient History Limitations: Reports: No Limitations - History of Present Illness INITIAL COMMENTS - FREE TEXT/NARRATIVE: Patient is 58 year old male who presents to ER with possible tooth abscess and cold symptoms. All symptoms started yesterday. Reports that his upper lip started swelling yesterday which got him concerned for two abscess. He has history of tooth abscess with similar symptoms 2 months. He was treated with Abx and was supposed to go to dentist to get the tooth removed but didn't. Denies any pus drainage. Patient is also on lisinopril for diabetes. Patient also reports of fever, chills, dry cough, chest wall pain with coughing, rhinorrhea, sore throat. He had a temp of 101 yesterday. Took Naprosyn with no help. He also reports of diarrhea, more like loose stool. He has had about 6 episdoes since yesterday. He smokes 7-8 cigarettes every time he goes to the [email or web address]. He goes to [email or web address] about 3 times a week. Onset: Gradual Duration: Day(s): (2) Location: Reports: Face, Chest Severity: Mild Improves with: Reports: None Worsens with: Reports: None Associated Symptoms: Reports: Cough, Fever/Chills, Headaches Treatments MFTS: Reports: NSAIDS. Denies: Other Medication(s) Left Upper Oral/Mouth Pain Score (Numeric/FACES): 4 - Related Data Allergies Allergy/AdvReac Type Severity Reaction Status Date / Time No Known Allergies Allergy Verified 05/16/18 06:51 Home Meds: Home Meds Insulin Aspart [NovoLOG] 25 units SQ TIDAC 07/18/13 [History] Insulin Detemir [Levemir] 50 unit SQ BID 07/18/13 [History] Simvastatin [Zocor] 20 mg PO BEDTIME 07/18/13 [History] Aspirin [Aspirin EC] 1 tab PO DAILY 04/15/14 [History] Multivitamin 1 tab PO DAILY 04/15/14 [History] Pregabalin [Lyrica] 1 tab PO BID 04/15/14 [History] Lisinopril [Prinivil] 10 mg PO DAILY 08/16/15 [History] Liraglutide [Victoza] 1.2 ml IM DAILY 03/22/18 [History] Folic Acid 1 mg PO DAILY 04/22/18 [History] metFORMIN [Glucophage XR] 1,000 mg PO BID 04/29/18 [History] Past Medical History - Past Health History Medical/Surgical History: Denies Medical/Surgical History HEENT History: Reports: Impaired Vision Cardiovascular History: Reports: High Cholesterol, Hypertension Respiratory History: Reports: None Gastrointestinal History: Reports: None Genitourinary History: Reports: None Musculoskeletal History: Reports: Arthritis, Back Pain, Chronic, Fracture Neurological History: Reports: Migraines Psychiatric History: Reports: None Endocrine/Metabolic History: Reports: Diabetes, Type II, Obesity/BMI 30+ Hematologic History: Reports: Anemia Immunologic History: Reports: None Oncologic (Cancer) History: Reports: None Dermatologic History: Reports: None - Infectious Disease History Infectious Disease History: Reports: Chicken Pox, Shingles - Past Surgical History Head Surgeries/Procedures: Reports: None HEENT Surgical History: Reports: None Cardiovascular Surgical History: Reports: None GI Surgical History: Reports: Colonoscopy Male Surgical History: Reports: Circumcision, Other (See Below) Musculoskeletal Surgical History: Reports: Other (See Below) Other Musculoskeletal Surgeries/Procedures:: hand surgery. degenerative disc Social & Family History - Family History Family Medical History: Noncontributory HEENT: Reports: None Cardiac: Reports: None Respiratory: Reports: None GI: Reports: None - Tobacco Use Smoking Status *Q: Current Some Day Smoker Years of Tobacco use: 40 Packs/Tins Daily: 1 Used Tobacco, but Quit: No - Caffeine Use Caffeine Use: Reports: Coffee Caffeine Use Comment: 24 oz. coffee daily & 2 sodas daily average - Recreational Drug Use Recreational Drug Use: No - Living Situation & Occupation Living situation: Reports: with Family ED ROS ENT - Review of Systems Review Of Systems: ROS reveals no pertinent complaints other than HPI. ED EXAM, ENT - Physical Exam Exam: See Below Exam Limited By: No Limitations General Appearance: Alert, WD/WN, No Apparent Distress Eye Exam: Bilateral Eye: Normal Inspection Ears: Normal External Exam Nose: Normal Inspection Mouth/Throat: Other (upper lip swelling, poor dentition, pharynx normal) Head: Atraumatic, Scalp Ecchymosis Neck: Normal Inspection Respiratory/Chest: No Respiratory Distress, No Accessory Muscle Use, Rales, Other (chest wall tenderness) Cardiovascular: Regular Rate, Rhythm, No Murmur GI/Abdominal: Normal Bowel Sounds, Soft, Non-Tender, No Distention (Male) Exam: Deferred Rectal (Males) Exam: Deferred Back: Normal Inspection Extremities: Normal Inspection Neurological: Alert, Oriented Psychiatric: Normal Affect Skin: Warm, Dry Course - Vital Signs Last Recorded V/S: Last Vital Signs Temp 98.0 F 08/24/18 18:20 Pulse 72 08/24/18 18:20 Resp 20 08/24/18 18:20 BP 130/72 08/24/18 18:20 Pulse Ox 98 08/24/18 18:20 - Orders/Labs/Meds Orders: Active Orders 24 hr Category Date Time Status Peripheral IV Care [RC] . DIRECTED Care 08/24/18 19:52 Active Peripheral IV Insertion Adult [OM.PC] Stat Oth 08/24/18 19:50 Ordered Labs: Laboratory Tests 08/24/18 08/24/18 Range/Units 19:55 19:55 WBC 6.8 (5.0-10.0) 10^3/uL RBC 4.60 (4.6-6.2) 10^6/uL Hgb 14.4 (14.0-18.0) g/dL Hct 41.9 (40.0-54.0) % MCV 91.1 (80-100) fL MCH 31.3 (27.0-34.0) pg MCHC 34.4 (33.0-35.0) g/dL Plt Count 284 (150-450) 10^3/uL Neut % (Auto) 62.8 (42.2-75.2) % Lymph % (Auto) 26.4 (20.5-50.1) % [place] % (Auto) 7.6 (2-8) % Eos % (Auto) 2.6 (1.0-3.0) % Baso % (Auto) 0.6 (0.0-1.0) % Sodium 134 L (135-145) mmol/L Potassium 3.7 (3.6-5.0) mmol/L Chloride 101 (101-111) mmol/L Carbon Dioxide 23.0 (21.0-31.0) mmol/L Anion Gap 13.7 BUN 14 (7-18) mg/dL Creatinine 0.7 (0.6-1.3) mg/dL Est Cr Clr Drug Dosing 124.01 mL/min Estimated GFR (MDRD) > 60 BUN/Creatinine Ratio 20.00 Glucose 106 H (74-105) mg/dL Calcium 8.2 L (8.4-10.2) mg/dl Total Bilirubin 0.6 (0.2-1.0) mg/dL AST 19 (10-42) IU/L ALT 22 (10-60) IU/L Alkaline Phosphatase 71 (42-121) IU/L Total Protein 6.9 (6.7-8.2) g/dl Albumin 3.4 (3.2-5.5) g/dl Globulin 3.5 Albumin/Globulin Ratio 0.97 Meds: Medications Discontinued Medications Generic Name Dose Route Start Last Admin Trade Name Freq PRN Reason Stop Dose Admin Hydrocodone Bitart/Acetaminophen 1 tab 08/24/18 21:22 08/24/18 21:32 [place] 325-5 Mg PO 08/24/18 21:23 1 tab ONETIME ONE Administration Amoxicillin 1,000 mg 08/24/18 21:24 08/24/18 21:32 Amoxil PO 08/24/18 21:25 1,000 mg ONETIME ONE Administration Diphenhydramine HCl 50 mg 08/24/18 19:52 08/24/18 20:00 Benadryl IVPUSH 08/24/18 19:53 50 mg ONETIME ONE Administration Sodium Chloride 1,000 mls @ 999 mls/hr 08/24/18 19:52 08/24/18 19:58 Normal Saline IV 08/24/18 20:52 999 mls/hr .BOLUS ONE Administration Methylprednisolone Sodium Succinate 125 mg 08/24/18 19:52 08/24/18 20:00 Solu-Medrol IVPUSH 08/24/18 19:53 125 mg ONETIME ONE Administration Sodium Chloride 10 ml 08/24/18 19:52 08/24/18 20:00 Saline Flush FLUSH 10 ml ASDIRECTED PRN Administration Keep Vein Open Departure - Departure Disposition: Home, Self-Care 01 Clinical Impression: Dental abscess Angioedema Qualifiers: Encounter type: initial encounter Qualified Code(s): T78.3XXA - Angioneurotic edema, initial encounter - Discharge Information Instructions: Dental Abscess, [id number], Angioedema Referrals: Velia Moralez MD [Primary Care Provider] - Forms: ED Department Discharge Additional Instructions: Hold Lisinopril until seen by your primary care provider Please make an appointment to see your primary care provider WILL RX: Amoxicillin Follow up with Dentistry - My Orders Last 24 Hours: My Active Orders 08/24/18 19:50 Peripheral IV Insertion Adult [OM.PC] Stat 08/24/18 19:52 Peripheral IV Care [RC] . DIRECTED - Assessment/Plan Last 24 Hours: My Active Orders 08/24/18 19:50 Peripheral IV Insertion Adult [OM.PC] Stat 08/24/18 19:52 Peripheral IV Care [RC] . DIRECTED <Cathie Jeornimo - Last Filed: 08/24/18 22:05> Course - Re-Assessments/Exams Free Text/Narrative Re-Assessment/Exam: 08/24/18 22:05 I saw and evaluated the patient. Discussed with resident and agree with resident s findings and plan as documented in the residents note. Departure - Departure Time of Disposition: 21:25 Condition: Fair - Discharge Information *PRESCRIPTION DRUG MONITORING PROGRAM REVIEWED*: No *COPY OF PRESCRIPTION DRUG MONITORING REPORT IN PATIENT NAVEEN: No
[2018-08-24] MEDS ORDERED: Sodium Chloride 0.9% 10 ML Syringe FLUSH PRN (19:52)
[2018-08-24] MEDS ORDERED: methylPREDNISolone Sodium Succinate 125 MG/2 ML SDV IVPUSH ONE (19:52)
[2018-08-24] MEDS ORDERED: Sodium Chloride 0.9% 1,000 ML IV ONE (19:52)
[2018-08-24] MEDS ORDERED: diphenhydrAMINE 50 MG/ML SDV IVPUSH ONE (19:52)
[2018-08-24 20:38] LABS: ANION GAP 13.7; CHLORIDE,CL 101 mmol/L (101-111)
[2018-08-24 20:39] LABS: SODIUM,NA 134 mmol/L (135-145)
[2018-08-24] MEDS ORDERED: Acetaminophen/HYDROcodone 325-5 MG Tab PO ONE (21:22)
[2018-08-24] MEDS ORDERED: Amoxicillin 500 MG Cap PO ONE (21:24)
== END 2018-08-24 21:36 | disposition home or self-care (01) ==
LOC: DL.ED 17:47
DX: K04.7 Periapical abscess without sinus (principal); T78.3XXA Angioneurotic edema, initial encounter; E11.9 Type 2 diabetes mellitus without complications; I10 Essential (primary) hypertension; E66.9 Obesity, unspecified; F17.210 Nicotine dependence, cigarettes, uncomplicated; Z79.899 Other long term (current) drug therapy
CPT/HCPCS: 36415; 80053; 85025; 96360; 99283; A9270; J1200; J2930; J7030

== ENCOUNTER 2018-11-06 16:58 | Emergency (ER) | payer BC, OTHER ==
[2018-11-06] MEDS ORDERED: Albuterol 6.7 GM Inhaler INH ONE ×2 (16:59→20:00)
[2018-11-06 17:13] VITALS: BP 128/63
[2018-11-06] MEDS ORDERED: Albuterol/Ipratropium 3.0-0.5 MG/3 ML Neb Soln NEB ONE (17:44)
[2018-11-06] MEDS ORDERED: Sodium Chloride 0.9% 10 ML Syringe FLUSH PRN (17:44)
[2018-11-06 18:22] LABS: ANION GAP 14.2; CHLORIDE,CL 105 mmol/L (101-111); SODIUM,NA 136 mmol/L (135-145)
--- NOTE | 2018-11-06 19:18 | EDM.PDOC ---
Scribed by Meche Crandall 11/06/18 191 for Leeann Nunez MD <Leeann Nunez - Last Filed: 11/06/18 19:16> ED HPI GENERAL MEDICAL PROBLEM - General Chief Complaint: Respiratory Problem Stated Complaint: TROUBLE BREATHING Time Seen by Provider: 11/06/18 17:40 Source of Information: Reports: Patient, RN, RN Notes Reviewed History Limitations: Reports: No Limitations - History of Present Illness INITIAL COMMENTS - FREE TEXT/NARRATIVE: Patient presents to ER with complaint of trouble breathing and shortness of breath for several days. No fever. No cough. No wheezing. Trace of lower extremity edema but that is not new. He is an active smoker age 16. Onset: Gradual Duration: Constant Location: Reports: Chest Quality: Reports: Other (short of breath) Severity: Moderate Improves with: Reports: None Worsens with: Reports: None Associated Symptoms: Reports: No Other Symptoms - Related Data Allergies Allergy/AdvReac Type Severity Reaction Status Date / Time No Known Allergies Allergy Verified 11/06/18 17:09 Home Meds: Home Meds Insulin Aspart [NovoLOG] 25 units SQ TIDAC 07/18/13 [History] Insulin Detemir [Levemir] 50 unit SQ BID 07/18/13 [History] Simvastatin [Zocor] 20 mg PO BEDTIME 07/18/13 [History] Aspirin [Aspirin EC] 81 PO DAILY 04/15/14 [History] Multivitamin 1 tab PO DAILY 04/15/14 [History] Pregabalin [Lyrica] 1 tab PO BID 04/15/14 [History] Liraglutide [Victoza] 1.2 ml IM DAILY 03/22/18 [History] Folic Acid 1 mg PO DAILY 04/22/18 [History] metFORMIN [Glucophage XR] 1,000 mg PO BID 04/29/18 [History] Past Medical History - Past Health History Medical/Surgical History: Denies Medical/Surgical History HEENT History: Reports: Impaired Vision Cardiovascular History: Reports: High Cholesterol, Hypertension Respiratory History: Reports: None Gastrointestinal History: Reports: None Genitourinary History: Reports: None Musculoskeletal History: Reports: Arthritis, Back Pain, Chronic, Fracture Neurological History: Reports: Migraines Psychiatric History: Reports: None Endocrine/Metabolic History: Reports: Diabetes, Type II, Obesity/BMI 30+ Hematologic History: Reports: Anemia Immunologic History: Reports: None Oncologic (Cancer) History: Reports: None Dermatologic History: Reports: None - Infectious Disease History Infectious Disease History: Reports: Chicken Pox, Shingles - Past Surgical History Head Surgeries/Procedures: Reports: None HEENT Surgical History: Reports: None Cardiovascular Surgical History: Reports: None GI Surgical History: Reports: Colonoscopy Male Surgical History: Reports: Circumcision, Other (See Below) Musculoskeletal Surgical History: Reports: Other (See Below) Other Musculoskeletal Surgeries/Procedures:: hand surgery. degenerative disc Social & Family History - Family History Family Medical History: Noncontributory HEENT: Reports: None Cardiac: Reports: None Respiratory: Reports: None GI: Reports: None - Tobacco Use Smoking Status *Q: Current Every Day Smoker Years of Tobacco use: 40 Packs/Tins Daily: 1 - Caffeine Use Caffeine Use: Reports: Coffee, Energy Drinks Caffeine Use Comment: 24 oz. coffee daily & 2 sodas daily average - Recreational Drug Use Recreational Drug Use: No - Living Situation & Occupation Living situation: Reports: with Family ED ROS GENERAL - Review of Systems Review Of Systems: ROS reveals no pertinent complaints other than HPI. ED EXAM, GENERAL - Physical Exam Exam: See Below Exam Limited By: No Limitations General Appearance: Alert, WD/WN, No Apparent Distress, Obese Eye Exam: Bilateral Eye: EOMI, Normal Inspection, PERRL Ears: Normal External Exam, Normal Canal, Hearing Grossly Normal, Normal TMs Nose: Normal Inspection, Normal Mucosa, No Blood Throat/Mouth: Normal Inspection, Normal Lips, Normal Teeth, Normal Gums, Normal Oropharynx, Normal Voice, No Airway Compromise Head: Atraumatic, Normocephalic Neck: Normal Inspection, Supple, Non-Tender, Full Range of Motion Respiratory/Chest: No Respiratory Distress, No Accessory Muscle Use, Chest Non- Tender, Decreased Breath Sounds. No: Crackles, Rales, Rhonchi, Wheezing Cardiovascular: Normal Peripheral Pulses, Regular Rate, Rhythm, No Edema, No Gallop, No JVD, No Murmur, No Rub GI/Abdominal: Normal Bowel Sounds, Soft, Non-Tender, No Organomegaly, No Distention, No Abnormal Bruit, No Mass (Male) Exam: Deferred Rectal (Males) Exam: Deferred Back Exam: Normal Inspection, Full Range of Motion, NT Extremities: Pedal Edema (trace) Neurological: Alert, Oriented, CN II-XII Intact, Normal Cognition, Normal Gait, Normal Reflexes, No Motor/Sensory Deficits Psychiatric: Normal Affect, Normal Mood Skin Exam: Warm, Dry, Intact, Normal Color, No Rash EKG INTERPRETATION EKG Date: 11/06/18 Time: 17:49 Rhythm: Other (sinus rhythm) Rate (Beats/Min): 84 [place]: Normal P-Wave: Present QRS: RBBB (incomplete and LAFB.) ST-T: Normal QT: Normal Comparison: NA - No Prior EKG Course - Vital Signs Last Recorded V/S: Last Vital Signs Temp 36.8 C 11/06/18 17:11 Pulse 90 11/06/18 17:11 Resp 18 11/06/18 17:11 BP 128/63 11/06/18 17:11 Pulse Ox 97 11/06/18 17:11 - Orders/Labs/Meds Orders: Active Orders 24 hr Category Date Time Status EKG 12 Lead [EKG Documentation Completion] [RC] STAT Care 11/06/18 17:44 Active Peripheral IV Care [RC] . DIRECTED Care 11/06/18 17:45 Active RT Aerosol Therapy [RC] ASDIRECTED Care 11/06/18 17:45 Active INFLUENZA A+B AG SCREEN [] Stat Lab 11/06/18 17:55 Received Sodium Chloride 0.9% [Saline Flush] Med 11/06/18 17:44 Active 10 ml FLUSH ASDIRECTED PRN Peripheral IV Insertion Adult [OM.PC] Stat Oth 11/06/18 17:44 Ordered Medication Orders Sodium Chloride (Saline Flush) 10 ml FLUSH ASDIRECTED PRN PRN Reason: Keep Vein Open Last Admin: 11/06/18 18:15 Dose: 10 ml Labs: Laboratory Tests 11/06/18 11/06/18 Range/Units 17:50 17:50 WBC 9.3 (5.0-10.0) 10^3/uL RBC 4.58 L (4.6-6.2) 10^6/uL Hgb 14.2 (14.0-18.0) g/dL Hct 41.1 (40.0-54.0) % MCV 89.7 (80-100) fL MCH 31.0 (27.0-34.0) pg MCHC 34.5 (33.0-35.0) g/dL Plt Count 295 (150-450) 10^3/uL Neut % (Auto) 66.2 (42.2-75.2) % Lymph % (Auto) 20.8 (20.5-50.1) % [place] % (Auto) 9.4 H (2-8) % Eos % (Auto) 3.0 (1.0-3.0) % Baso % (Auto) 0.6 (0.0-1.0) % Sodium 136 (135-145) mmol/L Potassium 4.2 (3.6-5.0) mmol/L Chloride 105 (101-111) mmol/L Carbon Dioxide 21.0 (21.0-31.0) mmol/L Anion Gap 14.2 BUN 20 H (7-18) mg/dL Creatinine 0.9 (0.6-1.3) mg/dL Est Cr Clr Drug Dosing 96.45 mL/min Estimated GFR (MDRD) > 60 BUN/Creatinine Ratio 22.22 Glucose 158 H (74-105) mg/dL Calcium 9.2 (8.4-10.2) mg/dl Total Bilirubin 0.7 (0.2-1.0) mg/dL AST 17 (10-42) IU/L ALT 23 (10-60) IU/L Alkaline Phosphatase 74 (42-121) IU/L Troponin I < 0.02 (0.00-0.02) ng/ml B-Natriuretic Peptide 13 (0-100) pg/ml Total Protein 7.2 (6.7-8.2) g/dl Albumin 3.7 (3.2-5.5) g/dl Globulin 3.5 Albumin/Globulin Ratio 1.06 Meds: Medications Generic Name Dose Route Start Last Admin Trade Name Freq PRN Reason Stop Dose Admin Sodium Chloride 10 ml 11/06/18 17:44 11/06/18 18:15 Saline Flush FLUSH 10 ml ASDIRECTED PRN Administration Keep Vein Open Discontinued Medications Generic Name Dose Route Start Last Admin Trade Name Freq PRN Reason Stop Dose Admin Albuterol/Ipratropium 3 ml 11/06/18 17:44 11/06/18 18:15 Duoneb 3.0-0.5 Mg/3 Ml NEB 11/06/18 17:45 3 ml ONETIME ONE Administration - Radiology Interpretation Free Text/Narrative:: [facility] [place] [facility] Final Radiology Report Call: [phone] assistance Online chat: [email or web address] Name: MARTA DAMON Age: 58Years M Date: 11/06/2018 SSN: -- : 1960 Study: XR CHEST 2 VIEWS Requesting Physician: LEEANN NUNEZ Images: 2 Addl Studies: Provided Clinical History: Contrast: Contrast Medium: Contrast Amount: Contrast Method: CONFIDENTIALITY STATEMENT This report is intended only for use by the referring physician, and only in accordance with law. If you received this in error, call [phone]. Page 1 of 1 EXAM: XR Chest, 2 Views EXAM DATE/TIME: 11/06/2018 6:03 PM CLINICAL HISTORY: 58 years old, male; Signs and symptoms; Dyspnea TECHNIQUE: Imaging protocol: XR of the chest, 2 views. COMPARISON: CR Chest 2V 09/27/2016 8:14 PM FINDINGS: Lungs: Unremarkable. No consolidation. Pleural space: Unremarkable. No pleural effusion. No pneumothorax. Heart/Mediastinum: Unremarkable. No cardiomegaly. 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 IMPRESSION: 1. No active disease of the chest. 2. No significant interval change when compared to the CR Chest 2V 09/27/2016 8: 14 PM. Thank you for allowing us to participate in the care of your patient. Dictated and Authenticated by: Jose Antonio Mackey MD 11/06/2018 6:47 PM Central Time ([place] & [place]) Departure - Departure Disposition: Home, Self-Care 01 Clinical Impression: COPD (chronic obstructive pulmonary disease) Qualifiers: COPD type: unspecified COPD Qualified Code(s): J44.9 - Chronic obstructive pulmonary disease, unspecified - Discharge Information Instructions: Chronic Obstructive Pulmonary Disease Exacerbation, [id number] Forms: ED Department Discharge Care Plan Goals: The patient was advised of the examination, lab and x-ray results during the visit. The patient was given a nebulizer treatment with symptom improvement. The patient does have a nebulizer at home with solution. The patient was discharged with an albuterol inhaler to take 2 puffs every 6 hours as needed. The patient was encouraged to follow-up with his primary care facility for continued evaluation (pulmonary function testing) and management. If the patient has any additional symptoms or concerns, the patient should either return to the emergency department or visit his primary care facility. <Madhu Trammell - Last Filed: 11/06/18 19:56> Departure - Departure Time of Disposition: 19:52 Condition: Fair - Discharge Information *PRESCRIPTION DRUG MONITORING PROGRAM REVIEWED*: Not Applicable *COPY OF PRESCRIPTION DRUG MONITORING REPORT IN PATIENT NAVEEN: Not Applicable I have read and agree with the documentation that has been completed regarding this visit. By signing this record, I attest that the documentation was completed in my physical presence and is an accurate record of the encounter.
== END 2018-11-06 20:06 | disposition home or self-care (01) ==
LOC: DL.ED 16:58
DX: J44.9 Chronic obstructive pulmonary disease, unspecified (principal); F17.210 Nicotine dependence, cigarettes, uncomplicated; I10 Essential (primary) hypertension; E11.9 Type 2 diabetes mellitus without complications; E78.00 Pure hypercholesterolemia, unspecified; Z79.4 Long term (current) use of insulin; Z79.899 Other long term (current) drug therapy
CPT/HCPCS: 36415; 71046; 80053; 83880; 84484; 85025; 87804; 93005; 94640; 99285; A9270; J7620-GY

== ENCOUNTER 2018-12-06 16:49 | Emergency (ER) | payer BC, OTHER ==
[2018-12-06] MEDS ORDERED: Sodium Chloride 0.9% 10 ML Syringe FLUSH PRN (17:07)
[2018-12-06] MEDS ORDERED: diphenhydrAMINE 50 MG/ML SDV IVPUSH ONE (17:08)
[2018-12-06] MEDS ORDERED: Vancomycin 1.75 GM in Sodium Chloride 0.9% 500 ML IV ONE (17:08)
[2018-12-06] MEDS ORDERED: Acetaminophen/HYDROcodone 325-10 MG Tab PO ONE (17:08)
--- NOTE | 2018-12-06 17:33 | EDM.PDOC ---
Scribed by Meche Crandall 12/06/18 1727 for Clark Nunez MD ED HPI GENERAL MEDICAL PROBLEM - General Chief Complaint: Skin Complaint Stated Complaint: ABSCESS UNDER RT ARM [id number] Time Seen by Provider: 12/06/18 16:58 Source of Information: Reports: Patient, RN, RN Notes Reviewed History Limitations: Reports: No Limitations - History of Present Illness INITIAL COMMENTS - FREE TEXT/NARRATIVE: Patient presents to ER with complaint that he has had an abscess under his right arm for the last 4 days. He states that this morning it started to drain spontaneously. He also states that it is painful and is worried about getting an infection. He tried to go to clinic but was driving back from [place] and the clinic was closed by the time he got home. Onset: Gradual Duration: Getting Worse Location: Reports: Other (under his right arm) Quality: Reports: Ache Severity: Moderate Improves with: Reports: None Worsens with: Reports: None Associated Symptoms: Reports: No Other Symptoms Right Arm Pain Score (Numeric/FACES): 7 - Related Data Allergies Allergy/AdvReac Type Severity Reaction Status Date / Time No Known Allergies Allergy Verified 12/06/18 17:05 Home Meds: Home Meds Insulin Aspart [NovoLOG] 25 units SQ TIDAC 07/18/13 [History] Insulin Detemir [Levemir] 50 unit SQ BID 07/18/13 [History] Simvastatin [Zocor] 20 mg PO BEDTIME 07/18/13 [History] Aspirin [Aspirin EC] 81 PO DAILY 04/15/14 [History] Multivitamin 1 tab PO DAILY 04/15/14 [History] Pregabalin [Lyrica] 1 tab PO BID 04/15/14 [History] Liraglutide [Victoza] 1.2 ml IM DAILY 03/22/18 [History] Folic Acid 1 mg PO DAILY 04/22/18 [History] metFORMIN [Glucophage XR] 1,000 mg PO BID 04/29/18 [History] Past Medical History - Past Health History Medical/Surgical History: Denies Medical/Surgical History HEENT History: Reports: Impaired Vision Cardiovascular History: Reports: High Cholesterol, Hypertension Respiratory History: Reports: None Gastrointestinal History: Reports: None Genitourinary History: Reports: None Musculoskeletal History: Reports: Arthritis, Back Pain, Chronic, Fracture Neurological History: Reports: Migraines Psychiatric History: Reports: None Endocrine/Metabolic History: Reports: Diabetes, Type II, Obesity/BMI 30+ Hematologic History: Reports: Anemia Immunologic History: Reports: None Oncologic (Cancer) History: Reports: None Dermatologic History: Reports: None - Infectious Disease History Infectious Disease History: Reports: Chicken Pox, Shingles - Past Surgical History Head Surgeries/Procedures: Reports: None HEENT Surgical History: Reports: None Cardiovascular Surgical History: Reports: None GI Surgical History: Reports: Colonoscopy Male Surgical History: Reports: Circumcision, Other (See Below) Musculoskeletal Surgical History: Reports: Other (See Below) Other Musculoskeletal Surgeries/Procedures:: hand surgery. degenerative disc Social & Family History - Family History Family Medical History: Noncontributory HEENT: Reports: None Cardiac: Reports: None Respiratory: Reports: None GI: Reports: None - Caffeine Use Caffeine Use: Reports: Coffee, Energy Drinks Caffeine Use Comment: 24 oz. coffee daily & 2 sodas daily average - Living Situation & Occupation Living situation: Reports: with Family ED ROS GENERAL - Review of Systems Review Of Systems: ROS reveals no pertinent complaints other than HPI. ED EXAM, GENERAL - Physical Exam Exam: See Below Exam Limited By: No Limitations General Appearance: Alert, No Apparent Distress, Obese Throat/Mouth: Normal Inspection, Normal Voice, No Airway Compromise Head: Atraumatic, Normocephalic Neck: Normal Inspection, Supple, Non-Tender, Full Range of Motion Respiratory/Chest: No Respiratory Distress Cardiovascular: Regular Rate, Rhythm Back Exam: Normal Inspection Extremities: Normal Inspection, Normal Range of Motion, Normal Capillary Refill Neurological: Alert, Oriented, No Motor/Sensory Deficits Psychiatric: Normal Mood Skin Exam: Warm, Dry, No Rash, Other (Rt axilla with 4.5cm x 3.5cm oval area of erythema with multiple excoriated lesions several of which are actively draining purulent material, the area is non-fluctuant but pt states it was swollen before it began to drain. ) Course - Vital Signs Last Recorded V/S: Last Vital Signs Temp 36.6 C 12/06/18 16:55 Pulse 102 H 12/06/18 16:55 Resp 18 12/06/18 16:55 BP 141/69 H 12/06/18 16:55 Pulse Ox 96 12/06/18 16:55 - Orders/Labs/Meds Orders: Active Orders 24 hr Category Date Time Status Peripheral IV Care [RC] . DIRECTED Care 12/06/18 17:07 Active CULTURE WOUND + SMEAR [RM] Stat Lab 12/06/18 17:00 Received Sodium Chloride 0.9% [Saline Flush] Med 12/06/18 17:07 Active 10 ml FLUSH ASDIRECTED PRN Vancomycin 1.75 gm Med 12/06/18 17:08 Active Sodium Chloride 0.9% [Normal Saline] 500 ml IV ONETIME Peripheral IV Insertion Adult [OM.PC] Stat Oth 12/06/18 17:07 Ordered Medication Orders Vancomycin HCl 1.75 gm/ Sodium (Chloride) 500 mls @ 334 mls/hr IV ONETIME ONE Stop: 12/06/18 18:37 Sodium Chloride (Saline Flush) 10 ml FLUSH ASDIRECTED PRN PRN Reason: Keep Vein Open Meds: Medications Generic Name Dose Route Start Last Admin Trade Name Freq PRN Reason Stop Dose Admin Vancomycin HCl 1.75 gm/ Sodium 500 mls @ 334 mls/hr 12/06/18 17:08 Chloride IV 12/06/18 18:37 ONETIME ONE Sodium Chloride 10 ml 12/06/18 17:07 Saline Flush FLUSH ASDIRECTED PRN Keep Vein Open Discontinued Medications Generic Name Dose Route Start Last Admin Trade Name Freq PRN Reason Stop Dose Admin Hydrocodone Bitart/Acetaminophen 1 tab 12/06/18 17:08 Dawson 325-10 Mg PO 12/06/18 17:09 ONETIME ONE Diphenhydramine HCl 25 mg 12/06/18 17:08 Benadryl IVPUSH 12/06/18 17:09 ONETIME ONE - Re-Assessments/Exams Free Text/Narrative Re-Assessment/Exam: 12/06/18 17:25 I&D was not performed as the Rt axilla area was freely draining and had no peripheral erythema. The Rt axilla appears to have Hidradenitis Sup. Departure - Departure Time of Disposition: 17:27 Disposition: Home, Self-Care 01 Condition: Fair Clinical Impression: Cutaneous abscess of right axilla, Hidradenitis suppurativa of right axilla - Discharge Information *PRESCRIPTION DRUG MONITORING PROGRAM REVIEWED*: No *COPY OF PRESCRIPTION DRUG MONITORING REPORT IN PATIENT NAVEEN: No Instructions: Skin Abscess, Hidradenitis Suppurativa Forms: ED Department Discharge Additional Instructions: Rx: Clindamycin 300mg Rx: Doxycycline 100mg Rx: Dawson 5mg/325mg *Do not drive while under the influence of this medication. Change dressing as often as needed to keep clean and dry, but at least twice every day. Follow up in clinic in 1 to 2 days for recheck, and referral to surgeon if needed. - My Orders Last 24 Hours: My Active Orders 12/06/18 17:00 CULTURE WOUND + SMEAR [RM] Stat 12/06/18 17:07 Peripheral IV Care [RC] . DIRECTED Sodium Chloride 0.9% [Saline Flush] 10 ml FLUSH ASDIRECTED PRN Peripheral IV Insertion Adult [OM.PC] Stat 12/06/18 17:08 Vancomycin 1.75 gm Sodium Chloride 0.9% [Normal Saline] 500 ml IV ONETIME - Assessment/Plan Last 24 Hours: My Active Orders 12/06/18 17:00 CULTURE WOUND + SMEAR [RM] Stat 12/06/18 17:07 Peripheral IV Care [RC] . DIRECTED Sodium Chloride 0.9% [Saline Flush] 10 ml FLUSH ASDIRECTED PRN Peripheral IV Insertion Adult [OM.PC] Stat 12/06/18 17:08 Vancomycin 1.75 gm Sodium Chloride 0.9% [Normal Saline] 500 ml IV ONETIME I have read and agree with the documentation that has been completed regarding this visit. By signing this record, I attest that the documentation was completed in my physical presence and is an accurate record of the encounter.
[2018-12-06 20:13] VITALS: BP 146/80
== END 2018-12-06 20:10 | disposition home or self-care (01) ==
LOC: DL.ED 16:49
DX: L02.411 Cutaneous abscess of right axilla (principal); L73.2 Hidradenitis suppurativa; E78.00 Pure hypercholesterolemia, unspecified; I10 Essential (primary) hypertension; E11.9 Type 2 diabetes mellitus without complications; Z79.4 Long term (current) use of insulin; Z79.84 Long term (current) use of oral hypoglycemic drugs
CPT/HCPCS: 87070; 87205; 96365; 96366; 96375; 99282-25; A9270-GY; J1200; J3370; J7040

== ENCOUNTER 2019-05-19 21:59 | Emergency (ER) | payer BC ==
[2019-05-19 22:39] VITALS: BP 130/60; PULSE 87
[2019-05-19] MEDS ORDERED: Ondansetron 4 MG/2 ML SDV IV ONE (23:07)
[2019-05-19] MEDS ORDERED: Sodium Chloride 0.9% 1,000 ML IV ONE (23:07)
--- NOTE | 2019-05-19 23:11 | EDM.PDOC ---
ED HPI GENERAL MEDICAL PROBLEM - General Chief Complaint: Abdominal Pain Stated Complaint: PAIN IN STOMACH IN THE MIDDLE Time Seen by Provider: 05/19/19 23:08 Source of Information: Reports: Patient History Limitations: Reports: No Limitations - History of Present Illness INITIAL COMMENTS - FREE TEXT/NARRATIVE: 2 days h/o low abd pain and right flank pain, nauseous, no vomiting did have small BM, poor appetite. 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 Lower Abdomen Pain Score (Numeric/FACES): 3 Occipital Pain Score (Numeric/FACES): 3 - Related Data Allergies Allergy/AdvReac Type Severity Reaction Status Date / Time No Known Allergies Allergy Verified 05/19/19 22:39 Home Meds: Home Meds Insulin Aspart [NovoLOG] 30 units SQ TIDAC 07/18/13 [History] Insulin Detemir [Levemir] 55 unit SQ BID 07/18/13 [History] Simvastatin [Zocor] 20 mg PO BEDTIME 07/18/13 [History] Aspirin [Aspirin EC] 81 mg PO DAILY 04/15/14 [History] Multivitamin 1 tab PO DAILY 04/15/14 [History] Pregabalin [Lyrica] 1 tab PO BID 04/15/14 [History] Liraglutide [Victoza] 1.2 ml IM DAILY 03/22/18 [History] Folic Acid 1 mg PO DAILY 04/22/18 [History] metFORMIN [Glucophage XR] 1,000 mg PO BID 04/29/18 [History] Gabapentin [Neurontin] 600 mg PO BID 05/19/19 [History] Past Medical History - Past Health History Medical/Surgical History: Denies Medical/Surgical History HEENT History: Reports: Impaired Vision Cardiovascular History: Reports: High Cholesterol, Hypertension Respiratory History: Reports: None Gastrointestinal History: Reports: None Genitourinary History: Reports: None Musculoskeletal History: Reports: Arthritis, Back Pain, Chronic, Fracture Neurological History: Reports: Migraines Psychiatric History: Reports: None Endocrine/Metabolic History: Reports: Diabetes, Type II, Obesity/BMI 30+ Hematologic History: Reports: Anemia Immunologic History: Reports: None Oncologic (Cancer) History: Reports: None Dermatologic History: Reports: None - Infectious Disease History Infectious Disease History: Reports: Chicken Pox, Shingles - Past Surgical History Head Surgeries/Procedures: Reports: None HEENT Surgical History: Reports: None Cardiovascular Surgical History: Reports: None GI Surgical History: Reports: Colonoscopy Male Surgical History: Reports: Circumcision, Other (See Below) Musculoskeletal Surgical History: Reports: Other (See Below) Other Musculoskeletal Surgeries/Procedures:: hand surgery. degenerative disc Social & Family History - Family History Family Medical History: Noncontributory HEENT: Reports: None Cardiac: Reports: None Respiratory: Reports: None GI: Reports: None - Tobacco Use Smoking Status *Q: Never Smoker - Caffeine Use Caffeine Use: Reports: Coffee, Soda Caffeine Use Comment: 24 oz. coffee daily & 2 sodas daily average - Recreational Drug Use Recreational Drug Use: No - Living Situation & Occupation Living situation: Reports: with Family ED ROS GENERAL - Review of Systems Review Of Systems: ROS reveals no pertinent complaints other than HPI. ED EXAM, GI/ABD - Physical Exam Exam: See Below Exam Limited By: No Limitations General Appearance: Alert, WD/WN, Mild Distress, Other (discomfort). No: Active Emesis Ears: Hearing Grossly Normal Throat/Mouth: Normal Voice, No Airway Compromise Head: Atraumatic Neck: Non-Tender, Full Range of Motion Respiratory/Chest: No Respiratory Distress Cardiovascular: Regular Rate, Rhythm GI/Abdominal Exam: Tender, Other (low abd mild RLQ discomfort). No: Distended, Guarding, Rigid, Rebound Neurological: Alert, Oriented, Normal Cognition, Normal Gait, No Motor/Sensory Deficits Psychiatric: Flat Affect Skin Exam: Warm, Dry, Normal Color Lymphatic: No Adenopathy Course - Vital Signs Last Recorded V/S: Last Vital Signs Temp 37.1 C 05/19/19 22:25 Pulse 87 05/19/19 22:25 Resp 17 05/19/19 22:25 BP 130/60 05/19/19 22:25 Pulse Ox 97 05/19/19 22:25 - Orders/Labs/Meds Labs: Laboratory Tests 05/19/19 05/19/19 05/19/19 Range/Units 22:30 23:15 23:15 WBC 8.0 (5.0-10.0) 10^3/uL RBC 4.27 L (4.6-6.2) 10^6/uL Hgb 13.3 L (14.0-18.0) g/dL Hct 38.9 L (40.0-54.0) % MCV 91.1 (80-100) fL MCH 31.1 (27.0-34.0) pg MCHC 34.2 (33.0-35.0) g/dL Plt Count 297 (150-450) 10^3/uL Neut % (Auto) 64.3 (42.2-75.2) % Lymph % (Auto) 25.7 (20.5-50.1) % [place] % (Auto) 6.4 (2-8) % Eos % (Auto) 3.1 H (1.0-3.0) % Baso % (Auto) 0.5 (0.0-1.0) % Sodium 138 (135-145) mmol/L Potassium 3.7 (3.6-5.0) mmol/L Chloride 105 (101-111) mmol/L Carbon Dioxide 25.0 (21.0-31.0) mmol/L Anion Gap 11.7 BUN 22 H (7-18) mg/dL Creatinine 0.8 (0.6-1.3) mg/dL Est Cr Clr Drug Dosing 111.82 mL/min Estimated GFR (MDRD) > 60 BUN/Creatinine Ratio 27.50 Glucose 142 H (74-105) mg/dL Calcium 8.8 (8.4-10.2) mg/dl Total Bilirubin 0.8 (0.2-1.0) mg/dL AST 20 (10-42) IU/L ALT 28 (10-60) IU/L Alkaline Phosphatase 60 (42-121) IU/L Total Protein 7.1 (6.7-8.2) g/dl Albumin 3.9 (3.2-5.5) g/dl Globulin 3.2 Albumin/Globulin Ratio 1.22 Urine Color Yellow (YELLOW) Urine Appearance Clear (CLEAR) Urine pH 5.5 (5.0-9.0) Ur Specific [place] >= 1.030 (1.005-1.030) Urine Protein 30 H (NEGATIVE) Urine Glucose (UA) Negative (NEGATIVE) Urine Ketones Trace H (NEGATIVE) Urine Occult Blood Negative (NEGATIVE) Urine Nitrite Negative (NEGATIVE) Urine Bilirubin Negative (NEGATIVE) Urine Urobilinogen 1.0 (0.2-1.0) mg/dL Ur Leukocyte Esterase Negative (NEGATIVE) Urine RBC 0-5 /HPF Urine WBC 0-5 (0-5/HPF) /HPF Ur Epithelial Cells Moderate H (NOT SEEN) /HPF Urine Bacteria Moderate H (0-FEW/HPF) /HPF Urine Mucus Moderate H (NOT SEEN) /LPF Meds: Medications Discontinued Medications Generic Name Dose Route Start Last Admin Trade Name Kassy PRN Reason Stop Dose Admin Sodium Chloride 1,000 mls @ 999 mls/hr 05/19/19 23:07 05/19/19 23:21 Normal Saline IV 05/20/19 00:07 999 mls/hr .BOLUS ONE Administration Ondansetron HCl 4 mg 05/19/19 23:07 05/19/19 23:21 Zofran IV 05/19/19 23:08 4 mg ONETIME ONE Administration - Re-Assessments/Exams Free Text/Narrative Re-Assessment/Exam: 05/20/19 00:19 results discussed with pt who is feeling much better presently Departure - Departure Time of Disposition: 00:19 Disposition: Home, Self-Care 01 Condition: Good Clinical Impression: Gastroenteritis - Discharge Information Forms: ED Department Discharge Additional Instructions: 1) avoid solid foods next 48 hours 2) have broth, jello, popsicle 3) recheck as needed
[2019-05-19 23:49] LABS: ANION GAP 11.7; CHLORIDE,CL 105 mmol/L (101-111); SODIUM,NA 138 mmol/L (135-145)
== END 2019-05-20 00:27 | disposition home or self-care (01) ==
LOC: DL.ED 21:59
DX: K52.9 Noninfective gastroenteritis and colitis, unspecified (principal); I10 Essential (primary) hypertension; E11.9 Type 2 diabetes mellitus without complications; E78.00 Pure hypercholesterolemia, unspecified; M19.90 Unspecified osteoarthritis, unspecified site; E66.9 Obesity, unspecified; Z68.36 Body mass index [BMI] 36.0-36.9, adult; Z79.82 Long term (current) use of aspirin; Z79.4 Long term (current) use of insulin; Z79.899 Other long term (current) drug therapy
CPT/HCPCS: 36415; 80053; 81001; 85025; 96361; 96374; 99283; J2405; J7030

== ENCOUNTER 2020-04-11 18:17 | Emergency (ER) | payer BC, OTHER ==
[2020-04-11 18:37] VITALS: BP 104/56; PULSE 77
--- NOTE | 2020-04-11 19:14 | EDM.PDOC ---
ED HPI GENERAL MEDICAL PROBLEM - General Chief Complaint: Abdominal Pain Stated Complaint: PAIN LOWER STOMACH COUPLE DAYS Time Seen by Provider: 04/11/20 19:05 Source of Information: Reports: Patient History Limitations: Reports: No Limitations - History of Present Illness INITIAL COMMENTS - FREE TEXT/NARRATIVE: This 59 yo male patient reports to the ED with lower abdominal pain that started 1-2 days ago. The patient reports he has had similar symptoms in the past due to a urinary tract infection. The patient reports he has not taken anything for his current symptoms and has not attempted to be seen in the clinic. Onset Date: 04/10/20 Duration: Constant, Getting Worse Location: Reports: Abdomen (lower) Quality: Reports: Ache, Dull Severity: Moderate Improves with: Reports: None Worsens with: Reports: None Context: Reports: Other Associated Symptoms: Reports: No Other Symptoms - Related Data Allergies Allergy/AdvReac Type Severity Reaction Status Date / Time No Known Allergies Allergy Verified 04/11/20 18:27 Home Meds: Home Meds Insulin Aspart [NovoLOG] 30 units SQ TIDAC 07/18/13 [History] Insulin Detemir [Levemir] 55 unit SQ BID 07/18/13 [History] Simvastatin [Zocor] 20 mg PO BEDTIME 07/18/13 [History] Aspirin [Aspirin EC] 81 mg PO DAILY 04/15/14 [History] Multivitamin 1 tab PO DAILY 04/15/14 [History] Pregabalin [Lyrica] 1 tab PO BID 04/15/14 [History] Liraglutide [Victoza] 1.2 ml IM DAILY 03/22/18 [History] Folic Acid 1 mg PO DAILY 04/22/18 [History] metFORMIN [Glucophage XR] 1,000 mg PO BID 04/29/18 [History] Gabapentin [Neurontin] 600 mg PO BID 05/19/19 [History] Past Medical History - Past Health History Medical/Surgical History: Denies Medical/Surgical History HEENT History: Reports: Impaired Vision Cardiovascular History: Reports: High Cholesterol, Hypertension Respiratory History: Reports: None Gastrointestinal History: Reports: None Genitourinary History: Reports: None Musculoskeletal History: Reports: Arthritis, Back Pain, Chronic, Fracture Neurological History: Reports: Migraines Psychiatric History: Reports: None Endocrine/Metabolic History: Reports: Diabetes, Type II, Obesity/BMI 30+ Hematologic History: Reports: Anemia Immunologic History: Reports: None Oncologic (Cancer) History: Reports: None Dermatologic History: Reports: None - Infectious Disease History Infectious Disease History: Reports: Chicken Pox, Shingles - Past Surgical History Head Surgeries/Procedures: Reports: None HEENT Surgical History: Reports: None Cardiovascular Surgical History: Reports: None GI Surgical History: Reports: Colonoscopy Male Surgical History: Reports: Circumcision Musculoskeletal Surgical History: Reports: Other (See Below) Other Musculoskeletal Surgeries/Procedures:: hand surgery. degenerative disc Social & Family History - Family History Family Medical History: Noncontributory HEENT: Reports: None Cardiac: Reports: None Respiratory: Reports: None GI: Reports: None - Tobacco Use Smoking Status *Q: Former Smoker Used Tobacco, but Quit: Yes Month/Year Tobacco Last Used: 2018 - Caffeine Use Caffeine Use: Reports: Coffee, Soda Caffeine Use Comment: 24 oz. coffee daily & 2 sodas daily average - Living Situation & Occupation Living situation: Reports: with Family ED ROS GENERAL - Review of Systems Review Of Systems: Comprehensive ROS is negative, except as noted in HPI. ED EXAM, GI/ABD - Physical Exam Exam: See Below Exam Limited By: No Limitations General Appearance: Alert, WD/WN, Mild Distress Eyes: Bilateral: Normal Appearance, EOMI Ears: Normal External Exam, Normal Canal, Hearing Grossly Normal, Normal TMs Nose: Normal Inspection, Normal Mucosa, No Blood Throat/Mouth: Normal Inspection, Normal Lips, Normal Teeth, Normal Gums, Normal Oropharynx, Normal Voice, No Airway Compromise Head: Atraumatic, Normocephalic Neck: Normal Inspection, Supple, Non-Tender, Full Range of Motion Respiratory/Chest: No Respiratory Distress, Lungs Clear, Normal Breath Sounds, No Accessory Muscle Use, Chest Non-Tender Cardiovascular: Normal Peripheral Pulses, Regular Rate, Rhythm, No Edema, No Gallop, No JVD, No Murmur, No Rub GI/Abdominal Exam: Normal Bowel Sounds, Soft, No Organomegaly, No Distention, No Abnormal Bruit, No Mass, Pelvis Stable, Tender (lower abdomen) (Male) Exam: Deferred Rectal (Males) Exam: Deferred Back Exam: Normal Inspection, Full Range of Motion, NT Extremities: Normal Inspection, Normal Range of Motion, Non-Tender, Normal Capillary Refill, No Pedal Edema Neurological: Alert, Oriented, CN II-XII Intact, Normal Cognition, Normal Gait, Normal Reflexes, No Motor/Sensory Deficits Psychiatric: Normal Affect, Normal Mood Skin Exam: Warm, Dry, Intact, Normal Color, No Rash Lymphatic: No Adenopathy Course - Vital Signs Last Recorded V/S: Last Vital Signs Temp 36.8 C 04/11/20 18:25 Pulse 77 04/11/20 18:25 Resp 16 04/11/20 18:25 BP 104/56 L 04/11/20 18:25 Pulse Ox 98 04/11/20 18:25 - Orders/Labs/Meds Orders: Active Orders 24 hr Category Date Time Status CULTURE BLOOD [BC] Stat Lab 04/11/20 19:07 Ordered Labs: Laboratory Tests 04/11/20 04/11/20 04/11/20 Range/Units 18:46 19:23 19:23 WBC 9.7 (5.0-10.0) 10^3/uL RBC 4.56 L (4.6-6.2) 10^6/uL Hgb 14.2 (14.0-18.0) g/dL Hct 41.1 (40.0-54.0) % MCV 90.1 (80-100) fL MCH 31.1 (27.0-34.0) pg MCHC 34.5 (33.0-35.0) g/dL Plt Count 302 (150-450) 10^3/uL Neut % (Auto) 66.8 (42.2-75.2) % Lymph % (Auto) 23.8 (20.5-50.1) % [place] % (Auto) 6.8 (2-8) % Eos % (Auto) 2.1 (1.0-3.0) % Baso % (Auto) 0.5 (0.0-1.0) % Sodium 138 (136-145) mmol/L Potassium 3.9 (3.5-5.1) mmol/L Chloride 102 (98-107) mmol/L Carbon Dioxide 28 (21-32) mmol/L Anion Gap 11.9 (7-13) mEq/L BUN 22 H (7-18) mg/dL Creatinine 0.97 (0.70-1.30) mg/dL Est Cr Clr Drug Dosing 88.41 mL/min Estimated GFR (MDRD) > 60 BUN/Creatinine Ratio 22.7 (No establ ref range) Glucose 217 H (74-99) mg/dL Lactic Acid (0.4-2.0) mmol/L Calcium 9.1 (8.5-10.1) mg/dL Total Bilirubin 0.7 (0.2-1.0) mg/dL AST 11 L (15-37) U/L ALT 26 (16-63) U/L Alkaline Phosphatase 90 (46-116) U/L Total Protein 8.1 (6.4-8.2) g/dL Albumin 3.8 (3.4-5.0) g/dL Globulin 4.3 Albumin/Globulin Ratio 0.9 Amylase 35 (25-115) U/L Lipase 170 (73-393) U/L Urine Color Yellow (YELLOW) Urine Appearance Clear (CLEAR) Urine pH 5.5 (5.0-9.0) Ur Specific [place] >= 1.030 (1.005-1.030) Urine Protein 30 H (NEGATIVE) Urine Glucose (UA) 500 H (NEGATIVE) Urine Ketones Trace H (NEGATIVE) Urine Occult Blood Negative (NEGATIVE) Urine Nitrite Negative (NEGATIVE) Urine Bilirubin Negative (NEGATIVE) Urine Urobilinogen 0.2 (0.2-1.0) mg/dL Ur Leukocyte Esterase Negative (NEGATIVE) Urine RBC 0-5 /HPF Urine WBC 0-5 (0-5/HPF) /HPF Ur Epithelial Cells Rare (NOT SEEN) /HPF Amorphous Sediment Few (NOT SEEN) /HPF Urine Bacteria Rare (0-FEW/HPF) /HPF Urine Mucus Moderate H (NOT SEEN) /LPF 04/11/20 Range/Units 19:23 WBC (5.0-10.0) 10^3/uL RBC (4.6-6.2) 10^6/uL Hgb (14.0-18.0) g/dL Hct (40.0-54.0) % MCV (80-100) fL MCH (27.0-34.0) pg MCHC (33.0-35.0) g/dL Plt Count (150-450) 10^3/uL Neut % (Auto) (42.2-75.2) % Lymph % (Auto) (20.5-50.1) % [place] % (Auto) (2-8) % Eos % (Auto) (1.0-3.0) % Baso % (Auto) (0.0-1.0) % Sodium (136-145) mmol/L Potassium (3.5-5.1) mmol/L Chloride (98-107) mmol/L Carbon Dioxide (21-32) mmol/L Anion Gap (7-13) mEq/L BUN (7-18) mg/dL Creatinine (0.70-1.30) mg/dL Est Cr Clr Drug Dosing mL/min Estimated GFR (MDRD) BUN/Creatinine Ratio (No establ ref range) Glucose (74-99) mg/dL Lactic Acid 1.0 (0.4-2.0) mmol/L Calcium (8.5-10.1) mg/dL Total Bilirubin (0.2-1.0) mg/dL AST (15-37) U/L ALT (16-63) U/L Alkaline Phosphatase (46-116) U/L Total Protein (6.4-8.2) g/dL Albumin (3.4-5.0) g/dL Globulin Albumin/Globulin Ratio Amylase (25-115) U/L Lipase (73-393) U/L Urine Color (YELLOW) Urine Appearance (CLEAR) Urine pH (5.0-9.0) Ur Specific [place] (1.005-1.030) Urine Protein (NEGATIVE) Urine Glucose (UA) (NEGATIVE) Urine Ketones (NEGATIVE) Urine Occult Blood (NEGATIVE) Urine Nitrite (NEGATIVE) Urine Bilirubin (NEGATIVE) Urine Urobilinogen (0.2-1.0) mg/dL Ur Leukocyte Esterase (NEGATIVE) Urine RBC /HPF Urine WBC (0-5/HPF) /HPF Ur Epithelial Cells (NOT SEEN) /HPF Amorphous Sediment (NOT SEEN) /HPF Urine Bacteria (0-FEW/HPF) /HPF Urine Mucus (NOT SEEN) /LPF Meds: Medications Discontinued Medications Generic Name Dose Route Start Last Admin Trade Name Freq PRN Reason Stop Dose Admin Iopamidol 100 ml 04/11/20 20:20 04/11/20 20:57 Isovue-300 (61%) IVPUSH 04/11/20 20:21 75 ml ONETIME ONE Administration Departure - Departure Time of Disposition: 21:12 Disposition: Home, Self-Care 01 Condition: Fair Clinical Impression: Gastritis Qualifiers: Gastritis type: unspecified gastritis Chronicity: acute Gastritis bleeding: without bleeding Qualified Code(s): K29.00 - Acute gastritis without bleeding - Discharge Information *PRESCRIPTION DRUG MONITORING PROGRAM REVIEWED*: Not Applicable *COPY OF PRESCRIPTION DRUG MONITORING REPORT IN PATIENT NAVEEN: Not Applicable Instructions: Gastritis, Adult, [id number] Forms: ED Department Discharge Care Plan Goals: The patient was advised of the examination, lab and CT results during the visit. The patient was encouraged to increase his physical activity. If the patient has any additional symptoms or concerns, the patient should either return to the emergency department or visit his primary care facility. Sepsis Event Note (ED) - Evaluation Sepsis Screening Result: No Definite Risk - Focused Exam Vital Signs: Vital Signs Temp Pulse Resp BP Pulse Ox 04/11/20 18:25 36.8 C 77 16 104/56 L 98 - My Orders Last 24 Hours: My Active Orders 04/11/20 19:07 CULTURE BLOOD [BC] Stat - Assessment/Plan Last 24 Hours: My Active Orders 04/11/20 19:07 CULTURE BLOOD [BC] Stat
[2020-04-11 20:06] LABS: ANION GAP 11.9 mEq/L (7-13); CHLORIDE,CL 102 mmol/L (98-107); SODIUM,NA 138 mmol/L (136-145)
[2020-04-11] MEDS ORDERED: Iopamidol 612 MG/ML 100 ML Bottle IVPUSH ONE (20:20)
--- NOTE | 2020-04-11 21:09 | CT ---
PROCEDURE INFORMATION: Exam: CT Abdomen And Pelvis With Contrast Exam date and time: 04/11/2020 8:39 PM Age: 59 years old Clinical indication: Abdominal pain; Localized; Lower; Additional info: Lower abdominal pain TECHNIQUE: Imaging protocol: Computed tomography of the abdomen and pelvis with intravenous contrast. Radiation optimization: All CT scans at this facility use at least one of these dose optimization techniques: automated exposure control; mA and/or kV adjustment per patient size (includes targeted exams where dose is matched to clinical indication); or iterative reconstruction. Contrast material: ISOVUE 300; Contrast volume: 75 ml; Contrast route: INTRAVENOUS (IV); COMPARISON: CT Abdomen Pelvis wo Cont 02/03/2018 11:54 PM FINDINGS: Liver: Normal. No mass. Gallbladder and bile ducts: Small partially calcified gallstone Pancreas: Normal. No ductal dilation. Spleen: Normal. No splenomegaly. Adrenals: Normal. No mass. Kidneys and ureters: Normal. No hydronephrosis. Stomach and bowel: Unremarkable. No obstruction. No mucosal thickening. Appendix: No evidence of appendicitis. Intraperitoneal space: Unremarkable. No free air. No significant fluid collection. Vasculature: Unremarkable. No abdominal aortic aneurysm. Lymph nodes: Unremarkable. No enlarged lymph nodes. Bladder: Unremarkable as visualized. Reproductive: Unremarkable as visualized. Bones/joints: Unremarkable. No acute fracture. Soft tissues: Unremarkable. IMPRESSION: Cholelithiasis
== END 2020-04-11 21:17 | disposition home or self-care (01) ==
LOC: DL.ED 18:17
DX: K29.00 Acute gastritis without bleeding (principal); E78.00 Pure hypercholesterolemia, unspecified; I10 Essential (primary) hypertension; M19.90 Unspecified osteoarthritis, unspecified site; E11.9 Type 2 diabetes mellitus without complications; Z79.82 Long term (current) use of aspirin; Z79.4 Long term (current) use of insulin; E66.9 Obesity, unspecified; Z87.891 Personal history of nicotine dependence; Z68.35 Body mass index [BMI] 35.0-35.9, adult
CPT/HCPCS: 36415; 74177; 80053; 81001; 82150; 83605; 83690; 85025; 87040; 99284; Q9967; 99283

== ENCOUNTER 2020-06-22 07:51 | Emergency (ER) | payer OTHER ==
[2020-06-22] MEDS ORDERED: predniSONE 20 MG Tab PO ONE (07:52)
[2020-06-22] MEDS ORDERED: Azithromycin 250 MG Tab PO ONE (07:52)
[2020-06-22] MEDS ORDERED: Albuterol 6.7 GM Inhaler INH ONE ×2 (07:52→10:14)
[2020-06-22 08:06] VITALS: BP 123/67; PULSE 73
--- NOTE | 2020-06-22 08:30 | EDM.PDOC ---
ED HPI GENERAL MEDICAL PROBLEM - General Chief Complaint: Respiratory Problem Stated Complaint: shortness of breath Time Seen by Provider: 06/22/20 08:30 Source of Information: Reports: Patient, RN, RN Notes Reviewed History Limitations: Reports: No Limitations - History of Present Illness INITIAL COMMENTS - FREE TEXT/NARRATIVE: Patient presents to ER with complaint of trouble breathing this morning. States that temperature was turned up in the furnace and has house, so thought maybe that was why he was having trouble breathing. Patient states all of his family are positive for Covid, and states he has not been tested. Patient admits to fever and chills a couple days ago, headache. Denies nausea, vomiting, diarrhea, chest pains. States he has been having some petechiae bruising to his arms, not sure what that is from, states he has not bumped them. Also some bruising to the left foot toes, minimal swelling. States he did not injure the foot in any way. Onset: Today Lower Back Pain Score (Numeric/FACES): 4 - Related Data Allergies Allergy/AdvReac Type Severity Reaction Status Date / Time No Known Allergies Allergy Verified 06/22/20 08:11 Home Meds: Home Meds Insulin Aspart [NovoLOG] 30 units SQ TIDAC 07/18/13 [History] Insulin Detemir [Levemir] 65 unit SQ BID 07/18/13 [History] Simvastatin [Zocor] 20 mg PO BEDTIME 07/18/13 [History] Aspirin [Aspirin EC] 81 mg PO DAILY 04/15/14 [History] Multivitamin 1 tab PO DAILY 04/15/14 [History] Liraglutide [Victoza] 18 mg IM DAILY 03/22/18 [History] metFORMIN [Glucophage XR] 1,000 mg PO BID 04/29/18 [History] Gabapentin [Neurontin] 600 mg PO TID 05/19/19 [History] Cholecalciferol (Vitamin D3) [Vitamin D3] 25 gm MC DAILY 06/22/20 [History] Fish Oil/[place]-3 Fatty Acids [Fish Oil 1,000 MG] 1 each PO DAILY 06/22/20 [History] lisinopriL [Lisinopril] 40 mg PO DAILY 06/22/20 [History] Past Medical History - Past Health History Medical/Surgical History: Denies Medical/Surgical History HEENT History: Reports: Impaired Vision Cardiovascular History: Reports: High Cholesterol, Hypertension Respiratory History: Reports: None Gastrointestinal History: Reports: None Genitourinary History: Reports: Diabetic Nephropathy Musculoskeletal History: Reports: Arthritis, Back Pain, Chronic, Fracture Neurological History: Reports: Migraines Psychiatric History: Reports: None Endocrine/Metabolic History: Reports: Diabetes, Type II, Obesity/BMI 30+ Hematologic History: Reports: Anemia Immunologic History: Reports: None Oncologic (Cancer) History: Reports: None Dermatologic History: Reports: None - Infectious Disease History Infectious Disease History: Reports: Chicken Pox, Shingles - Past Surgical History Head Surgeries/Procedures: Reports: None HEENT Surgical History: Reports: None Cardiovascular Surgical History: Reports: None GI Surgical History: Reports: Colonoscopy Male Surgical History: Reports: Circumcision Musculoskeletal Surgical History: Reports: Other (See Below) Other Musculoskeletal Surgeries/Procedures:: hand surgery. degenerative disc Social & Family History - Family History Family Medical History: No Pertinent Family History HEENT: Reports: None Cardiac: Reports: None Respiratory: Reports: None GI: Reports: None - Tobacco Use Tobacco Use Status *Q: Former Tobacco User Used Tobacco, but Quit: Yes Month/Year Tobacco Last Used: october 2018 Second Hand Smoke Exposure: No - Caffeine Use Caffeine Use: Reports: Coffee, Soda Caffeine Use Comment: 24 oz. coffee daily & 2 sodas daily average - Recreational Drug Use Recreational Drug Use: No - Living Situation & Occupation Living situation: Reports: with Family ED ROS GENERAL - Review of Systems Review Of Systems: Comprehensive ROS is negative, except as noted in HPI. ED EXAM, GENERAL - Physical Exam Exam: See Below Exam Limited By: No Limitations General Appearance: Alert, WD/WN, No Apparent Distress Eye Exam: Bilateral Eye: EOMI, Normal Inspection Ears: Normal External Exam, Hearing Grossly Normal Nose: Normal Inspection Throat/Mouth: Normal Inspection, Normal Voice, No Airway Compromise Head: Atraumatic, Normocephalic Neck: Normal Inspection, Supple, Non-Tender, Full Range of Motion Respiratory/Chest: No Respiratory Distress, No Accessory Muscle Use, Chest Non- Tender, Crackles (Left base) Cardiovascular: Normal Peripheral Pulses, Regular Rate, Rhythm, No Edema, No Gallop, No JVD, No Murmur, No Rub Peripheral Pulses: 2+: Radial (L), Radial (R) GI/Abdominal: Normal Bowel Sounds, Soft, Non-Tender (Male) Exam: Deferred Rectal (Males) Exam: Deferred Back Exam: Normal Inspection, Full Range of Motion, NT Extremities: Normal Inspection, Normal Range of Motion, Non-Tender, No Pedal Edema, Normal Capillary Refill, Other (Bruising left toes) Neurological: Alert, Oriented, CN II-XII Intact, Normal Cognition, Normal Gait, Normal Reflexes, No Motor/Sensory Deficits Psychiatric: Normal Affect, Normal Mood Skin Exam: Warm, Dry, Intact, Normal Color, No Rash Lymphatic: No Adenopathy Course - Vital Signs Last Recorded V/S: Last Vital Signs Temp 99.2 F 06/22/20 07:59 Pulse 73 06/22/20 07:59 Resp 18 06/22/20 07:59 BP 123/67 06/22/20 07:59 Pulse Ox 98 06/22/20 07:59 - Orders/Labs/Meds Orders: Active Orders 24 hr Category Date Time Status CORONAVIRUS COVID-19 PCR PHL Stat Lab 06/22/20 08:17 Received Labs: Laboratory Tests 06/22/20 06/22/20 06/22/20 Range/Units 08:37 08:37 08:37 WBC 5.4 (5.0-10.0) 10^3/uL RBC 4.42 L (4.6-6.2) 10^6/uL Hgb 13.8 L (14.0-18.0) g/dL Hct 39.6 L (40.0-54.0) % MCV 89.6 (80-100) fL MCH 31.2 (27.0-34.0) pg MCHC 34.8 (33.0-35.0) g/dL Plt Count 231 (150-450) 10^3/uL Neut % (Auto) 67.5 (42.2-75.2) % Lymph % (Auto) 21.8 (20.5-50.1) % [place] % (Auto) 9.2 H (2-8) % Eos % (Auto) 0.9 L (1.0-3.0) % Baso % (Auto) 0.6 (0.0-1.0) % D-Dimer, Quantitative 307 (0-400) ng/mL Sodium 138 (136-145) mmol/L Potassium 4.1 (3.5-5.1) mmol/L Chloride 102 (98-107) mmol/L Carbon Dioxide 25 (21-32) mmol/L Anion Gap 15.1 H (7-13) mEq/L BUN 18 (7-18) mg/dL Creatinine 0.91 (0.70-1.30) mg/dL Est Cr Clr Drug Dosing 94.24 mL/min Estimated GFR (MDRD) > 60 BUN/Creatinine Ratio 19.8 (No establ ref range) Glucose 124 H (74-99) mg/dL Calcium 8.4 L (8.5-10.1) mg/dL Total Bilirubin 0.7 (0.2-1.0) mg/dL AST 36 (15-37) U/L ALT 70 H (16-63) U/L Alkaline Phosphatase 73 (46-116) U/L Lactate Dehydrogenase 197 (85-227) U/L C-Reactive Protein 1.4 H (0.0-0.9) mg/dL Total Protein 7.7 (6.4-8.2) g/dL Albumin 3.3 L (3.4-5.0) g/dL Globulin 4.4 Albumin/Globulin Ratio 0.75 Meds: Medications Discontinued Medications Generic Name Dose Route Start Last Admin Trade Name Freq PRN Reason Stop Dose Admin Albuterol Confirm 06/22/20 10:14 Proventil Hfa Administered 06/22/20 10:15 Dose 6.7 gm INH .STK-MED ONE Azithromycin Confirm 06/22/20 10:14 Zithromax Administered 06/22/20 10:15 Dose 500 mg .ROUTE .STK-MED ONE Prednisone Confirm 06/22/20 10:14 Prednisone Administered 06/22/20 10:15 Dose 40 mg .ROUTE .STK-MED ONE - Radiology Interpretation Free Text/Narrative:: Chest xray: PROCEDURE INFORMATION: Exam: XR Chest, 1 View Exam date and time: 06/22/2020 8:46 AM Age: 59 years old Clinical indication: Chest pain TECHNIQUE: Imaging protocol: XR of the chest Views: 1 view. COMPARISON: 1. CR Chest 2V 11/06/2018 6:[address] - Abdomen Pelvis w Cont 04/11/2020 8:39:11 PM 3. CR - Ribs 2V w Chest Lt 07/14/2017 1:12:24 AM FINDINGS: Lungs: Very slightly increased bibasilar opacity which could reflect very minimal atelectasis versus pneumonia. Pleural space: Unremarkable. No pleural effusion. No pneumothorax. Heart/Mediastinum: Unremarkable. No cardiomegaly. Bones/joints: Unremarkable. IMPRESSION: 1. Very slightly increased bibasilar opacity which could reflect very minimal atelectasis versus pneumonia. Thank you for allowing us to participate in the care of your patient. Dictated and Authenticated by: Lynda Munoz MD 06/22/2020 9:11 AM Central Time ([place] & [place]) See rad report Departure - Departure Time of Disposition: 09:55 Disposition: Home, Self-Care 01 Condition: Good Clinical Impression: Pneumonia Qualifiers: Pneumonia type: due to unspecified organism Laterality: unspecified laterality Lung location: lower lobe of lung Qualified Code(s): J18.9 - Pneumonia, unspecified organism - Discharge Information *PRESCRIPTION DRUG MONITORING PROGRAM REVIEWED*: No *COPY OF PRESCRIPTION DRUG MONITORING REPORT IN PATIENT NAVEEN: No Instructions: Shortness of Breath, Adult, [id number], Upper Respiratory Infection, Adult, [id number] Forms: ED Department Discharge Sepsis Event Note (ED) - Evaluation Sepsis Screening Result: No Definite Risk - Focused Exam Vital Signs: Vital Signs Temp Pulse Resp BP Pulse Ox 06/22/20 07:59 99.2 F 73 18 123/67 98 - My Orders Last 24 Hours: My Active Orders 06/22/20 08:17 CORONAVIRUS COVID-19 PCR PHL Stat - Assessment/Plan Last 24 Hours: My Active Orders 06/22/20 08:17 CORONAVIRUS COVID-19 PCR PHL Stat
[2020-06-22] MEDS ORDERED: predniSONE 20 MG Tab ONE (10:14)
[2020-06-22] MEDS ORDERED: Azithromycin 250 MG Tab ONE (10:14)
--- NOTE | 2020-06-22 10:16 | CR ---
PROCEDURE INFORMATION: Exam: XR Chest, 1 View Exam date and time: 06/22/2020 8:46 AM Age: 59 years old Clinical indication: Chest pain TECHNIQUE: Imaging protocol: XR of the chest Views: 1 view. COMPARISON: 1. CR Chest 2V 11/06/2018 6:[address] - Abdomen Pelvis w Cont 04/11/2020 8:39:11 PM 3. CR - Ribs 2V w Chest Lt 07/14/2017 1:12:24 AM FINDINGS: Lungs: Very slightly increased bibasilar opacity which could reflect very minimal atelectasis versus pneumonia. Pleural space: Unremarkable. No pleural effusion. No pneumothorax. Heart/Mediastinum: Unremarkable. No cardiomegaly. Bones/joints: Unremarkable. IMPRESSION: 1. Very slightly increased bibasilar opacity which could reflect very minimal atelectasis versus pneumonia.
[2020-06-22 10:35] LABS: ANION GAP 15.1 mEq/L (7-13); CHLORIDE,CL 102 mmol/L (98-107); SODIUM,NA 138 mmol/L (136-145)
== END 2020-06-22 10:30 | disposition home or self-care (01) ==
LOC: DL.ED 07:51
DX: J18.9 Pneumonia, unspecified organism (principal); E78.00 Pure hypercholesterolemia, unspecified; I10 Essential (primary) hypertension; E11.21 Type 2 diabetes mellitus with diabetic nephropathy; M19.90 Unspecified osteoarthritis, unspecified site; E66.9 Obesity, unspecified; Z68.35 Body mass index [BMI] 35.0-35.9, adult; Z20.828 Contact with and (suspected) exposure to other viral communicable diseases; Z79.82 Long term (current) use of aspirin; Z79.4 Long term (current) use of insulin; Z79.899 Other long term (current) drug therapy; Z87.891 Personal history of nicotine dependence
CPT/HCPCS: 36415; 71045; 80053; 83615; 85025; 85379; 86140; 87635; 99285; A9270; J7512; U0002

== ENCOUNTER 2020-06-25 11:59 | Emergency (ER) | payer OTHER ==
[2020-06-25 12:18] VITALS: BP 125/64; PULSE 82
--- NOTE | 2020-06-25 15:03 | EDM.PDOC ---
ED HPI GENERAL MEDICAL PROBLEM - General Chief Complaint: Respiratory Problem Stated Complaint: SHORTNESS OF BREATH.. COVID+? Time Seen by Provider: 06/25/20 14:50 Source of Information: Reports: Patient History Limitations: Reports: No Limitations - History of Present Illness INITIAL COMMENTS - FREE TEXT/NARRATIVE: This 59 yo male patient reports to the ED due to continued shortness of breath. The patient was seen in the ED 2 days ago due to similar symptoms, tested negative to COVID and was started on antibiotics/steroids. The patient reports he did call the [facility] and was advised to return to the ED. Onset: Gradual Duration: Day(s):, Constant Location: Reports: Chest Quality: Reports: Other Severity: Moderate Improves with: Reports: None Worsens with: Reports: None Context: Reports: Other Associated Symptoms: Reports: Cough, Shortness of Breath - Related Data Allergies Allergy/AdvReac Type Severity Reaction Status Date / Time No Known Allergies Allergy Verified 06/22/20 08:11 Home Meds: Home Meds Insulin Aspart [NovoLOG] 30 units SQ TIDAC 07/18/13 [History] Insulin Detemir [Levemir] 65 unit SQ BID 07/18/13 [History] Simvastatin [Zocor] 20 mg PO BEDTIME 07/18/13 [History] Aspirin [Aspirin EC] 81 mg PO DAILY 04/15/14 [History] Multivitamin 1 tab PO DAILY 04/15/14 [History] Liraglutide [Victoza] 18 mg IM DAILY 03/22/18 [History] metFORMIN [Glucophage XR] 1,000 mg PO BID 04/29/18 [History] Gabapentin [Neurontin] 600 mg PO TID 05/19/19 [History] Cholecalciferol (Vitamin D3) [Vitamin D3] 25 gm MC DAILY 06/22/20 [History] Fish Oil/[place]-3 Fatty Acids [Fish Oil 1,000 MG] 1 each PO DAILY 06/22/20 [History] lisinopriL [Lisinopril] 40 mg PO DAILY 06/22/20 [History] Past Medical History - Past Health History Medical/Surgical History: Denies Medical/Surgical History HEENT History: Reports: Impaired Vision Cardiovascular History: Reports: High Cholesterol, Hypertension Respiratory History: Reports: None Gastrointestinal History: Reports: None Genitourinary History: Reports: Diabetic Nephropathy Musculoskeletal History: Reports: Arthritis, Back Pain, Chronic, Fracture Neurological History: Reports: Migraines Psychiatric History: Reports: None Endocrine/Metabolic History: Reports: Diabetes, Type II, Obesity/BMI 30+ Hematologic History: Reports: Anemia Immunologic History: Reports: None Oncologic (Cancer) History: Reports: None Dermatologic History: Reports: None - Infectious Disease History Infectious Disease History: Reports: Chicken Pox, Shingles - Past Surgical History Head Surgeries/Procedures: Reports: None HEENT Surgical History: Reports: None Cardiovascular Surgical History: Reports: None GI Surgical History: Reports: Colonoscopy Male Surgical History: Reports: Circumcision Musculoskeletal Surgical History: Reports: Other (See Below) Other Musculoskeletal Surgeries/Procedures:: hand surgery. degenerative disc Social & Family History - Family History Family Medical History: No Pertinent Family History HEENT: Reports: None Cardiac: Reports: None Respiratory: Reports: None GI: Reports: None - Tobacco Use Tobacco Use Status *Q: Former Tobacco User Used Tobacco, but Quit: Yes Month/Year Tobacco Last Used: 2009 - Caffeine Use Caffeine Use: Reports: None Caffeine Use Comment: 24 oz. coffee daily & 2 sodas daily average - Recreational Drug Use Recreational Drug Use: No - Living Situation & Occupation Living situation: Reports: with Family ED ROS GENERAL - Review of Systems Review Of Systems: Comprehensive ROS is negative, except as noted in HPI. ED EXAM, GENERAL - Physical Exam Exam: See Below Exam Limited By: No Limitations General Appearance: Alert, WD/WN, Moderate Distress Eye Exam: Bilateral Eye: EOMI, Normal Inspection, PERRL Ears: Normal External Exam, Normal Canal, Hearing Grossly Normal, Normal TMs Nose: Normal Inspection, Normal Mucosa, No Blood Throat/Mouth: Normal Inspection, Normal Lips, Normal Teeth, Normal Gums, Normal Oropharynx, Normal Voice, No Airway Compromise Head: Atraumatic, Normocephalic Neck: Normal Inspection, Supple, Non-Tender, Full Range of Motion Respiratory/Chest: No Respiratory Distress, Lungs Clear, Normal Breath Sounds, No Accessory Muscle Use, Chest Non-Tender Cardiovascular: Normal Peripheral Pulses, Regular Rate, Rhythm, No Edema, No Gallop, No JVD, No Murmur, No Rub GI/Abdominal: Normal Bowel Sounds, Soft, Non-Tender, No Organomegaly, No Distention, No Abnormal Bruit, No Mass (Male) Exam: Deferred Rectal (Males) Exam: Deferred Back Exam: Normal Inspection, Full Range of Motion, NT Extremities: Normal Inspection, Normal Range of Motion, Non-Tender, Normal Capillary Refill, No Pedal Edema Neurological: Alert, Oriented, CN II-XII Intact, Normal Cognition, Normal Gait, Normal Reflexes, No Motor/Sensory Deficits Psychiatric: Normal Affect, Normal Mood Skin Exam: Warm, Dry, Intact, Normal Color, No Rash Lymphatic: No Adenopathy Course - Vital Signs Last Recorded V/S: Last Vital Signs Temp 36.2 C 06/25/20 12:16 Pulse 82 06/25/20 12:16 Resp 16 06/25/20 12:16 BP 125/64 06/25/20 12:16 Pulse Ox 98 06/25/20 12:16 - Orders/Labs/Meds Orders: Active Orders 24 hr Category Date Time Status EKG Documentation Completion [RC] STAT Care 06/25/20 14:31 Active COMPREHENSIVE METABOLIC PN,CMP [CHEM] Stat Lab 06/25/20 14:50 Received CULTURE BLOOD [BC] Stat Lab 06/25/20 14:50 Received LACTIC ACID [CHEM] Stat Lab 06/25/20 14:50 Received TROPONIN I [CHEM] Stat Lab 06/25/20 14:50 Received Labs: Laboratory Tests 06/25/20 06/25/20 Range/Units 13:59 14:50 WBC 8.1 (5.0-10.0) 10^3/uL RBC 4.02 L (4.6-6.2) 10^6/uL Hgb 12.6 L (14.0-18.0) g/dL Hct 35.8 L (40.0-54.0) % MCV 89.1 (80-100) fL MCH 31.3 (27.0-34.0) pg MCHC 35.2 H (33.0-35.0) g/dL Plt Count 258 (150-450) 10^3/uL Neut % (Auto) 86.5 H (42.2-75.2) % Lymph % (Auto) 8.7 L (20.5-50.1) % [place] % (Auto) 4.3 (2-8) % Eos % (Auto) 0.4 L (1.0-3.0) % Baso % (Auto) 0.1 (0.0-1.0) % SARS CoV-2 RNA Rapid ELIZABETH Negative (NEGATIVE) Departure - Departure Time of Disposition: 15:08 Disposition: Home, Self-Care 01 Condition: Fair Clinical Impression: Lab test negative for COVID-19 virus Pneumonia Qualifiers: Pneumonia type: due to unspecified organism Laterality: unspecified laterality Lung location: lower lobe of lung Qualified Code(s): J18.9 - Pneumonia, unspecified organism - Discharge Information *PRESCRIPTION DRUG MONITORING PROGRAM REVIEWED*: Not Applicable *COPY OF PRESCRIPTION DRUG MONITORING REPORT IN PATIENT NAVEEN: Not Applicable Instructions: Community-Acquired Pneumonia, Adult, [id number] Forms: ED Department Discharge Care Plan Goals: The patient was advised of the examination and lab results during the visit. The patient tested negative for COVID. The patient was encouraged to continue with the medications he was previously given and take them as directed. If the pa tient has any additional symptoms or concerns, the patient should either return to the emergency department or visit his primary care facility. Sepsis Event Note (ED) - Evaluation Sepsis Screening Result: No Definite Risk - Focused Exam Vital Signs: Vital Signs Temp Pulse Resp BP Pulse Ox 06/25/20 12:16 36.2 C 82 16 125/64 98 - My Orders Last 24 Hours: My Active Orders 06/25/20 14:31 EKG Documentation Completion [RC] STAT 06/25/20 14:50 COMPREHENSIVE METABOLIC PN,CMP [CHEM] Stat CULTURE BLOOD [BC] Stat LACTIC ACID [CHEM] Stat TROPONIN I [CHEM] Stat - Assessment/Plan Last 24 Hours: My Active Orders 06/25/20 14:31 EKG Documentation Completion [RC] STAT 06/25/20 14:50 COMPREHENSIVE METABOLIC PN,CMP [CHEM] Stat CULTURE BLOOD [BC] Stat LACTIC ACID [CHEM] Stat TROPONIN I [CHEM] Stat
[2020-06-25 15:24] LABS: ANION GAP 12.7 mEq/L (7-13); CHLORIDE,CL 100 mmol/L (98-107); SODIUM,NA 133 mmol/L (136-145)
== END 2020-06-25 15:18 | disposition home or self-care (01) ==
LOC: DL.ED 11:59
DX: J18.9 Pneumonia, unspecified organism (principal); I10 Essential (primary) hypertension; E78.00 Pure hypercholesterolemia, unspecified; E11.21 Type 2 diabetes mellitus with diabetic nephropathy; M19.90 Unspecified osteoarthritis, unspecified site; E66.9 Obesity, unspecified; Z68.35 Body mass index [BMI] 35.0-35.9, adult; Z87.891 Personal history of nicotine dependence; Z79.4 Long term (current) use of insulin; Z79.82 Long term (current) use of aspirin; Z79.899 Other long term (current) drug therapy; Z20.828 Contact with and (suspected) exposure to other viral communicable diseases
CPT/HCPCS: 36415; 80053; 83605; 84484; 85025; 87040; 93005; 99285-25; U0002

== ENCOUNTER 2020-07-10 07:17 | Emergency (ER) | payer OTHER ==
[2020-07-10 07:33] VITALS: PULSE 78
--- NOTE | 2020-07-10 07:40 | EDM.PDOC ---
ED HPI GENERAL MEDICAL PROBLEM - General Chief Complaint: Respiratory Problem Stated Complaint: shortness of breath Time Seen by Provider: 07/10/20 07:31 Source of Information: Reports: Patient, RN, RN Notes Reviewed History Limitations: Reports: No Limitations - History of Present Illness INITIAL COMMENTS - FREE TEXT/NARRATIVE: Patient presents to the ED via personal vehicle with complaints of shortness of breath. The patient states he was seen in this facility about two weeks ago for similar symptoms and was subsequently diagnosed with pneumonia; he was treated with Zithromax and a steroid burst. He states he did experience improvement in symptoms following the antibiotics and steroids however the shortness of breath has returned and progressively worsened in the last 48 hours. He states the shortness of breath caused him to wake up at 0300 this morning and the morning prior; he states he did experience improvement yesterday with his albuterol inhaler, but did not experience improvement of shortness of breath today with the albuterol. He denies a history of a COVID infection. He denies fever, shaking chills, headache, cough, sore throat, palpitations, dyspepsia, nausea, vomiting, or diarrhea. He does attest to sternal chest pain that began yesterday. He characterizes the sternal chest pain as a dull ache and is not progressively worsening. The patient attest to a history of cigarette smoking with a quit date in June 2019. The patient denies a history of alcohol or recreational drug use. Back Pain Score (Numeric/FACES): 5 - Related Data Allergies Allergy/AdvReac Type Severity Reaction Status Date / Time No Known Allergies Allergy Verified 07/10/20 07:33 Home Meds: Home Meds Insulin Aspart [NovoLOG] 30 units SQ TIDAC 07/18/13 [History] Insulin Detemir [Levemir] 65 unit SQ BID 07/18/13 [History] Simvastatin [Zocor] 20 mg PO BEDTIME 07/18/13 [History] Aspirin [Aspirin EC] 81 mg PO DAILY 04/15/14 [History] Multivitamin 1 tab PO DAILY 04/15/14 [History] Liraglutide [Victoza] 18 mg IM DAILY 03/22/18 [History] metFORMIN [Glucophage XR] 1,000 mg PO BID 04/29/18 [History] Gabapentin [Neurontin] 600 mg PO TID 05/19/19 [History] Cholecalciferol (Vitamin D3) [Vitamin D3] 25 gm MC DAILY 06/22/20 [History] Fish Oil/[place]-3 Fatty Acids [Fish Oil 1,000 MG] 1 each PO DAILY 06/22/20 [History] lisinopriL [Lisinopril] 40 mg PO DAILY 06/22/20 [History] Past Medical History - Past Health History Medical/Surgical History: Denies Medical/Surgical History HEENT History: Reports: Impaired Vision Cardiovascular History: Reports: High Cholesterol, Hypertension Respiratory History: Reports: None Gastrointestinal History: Reports: None Genitourinary History: Reports: Diabetic Nephropathy Musculoskeletal History: Reports: Arthritis, Back Pain, Chronic, Fracture Neurological History: Reports: Migraines Psychiatric History: Reports: None Endocrine/Metabolic History: Reports: Diabetes, Type II, Obesity/BMI 30+ Hematologic History: Reports: Anemia Immunologic History: Reports: None Oncologic (Cancer) History: Reports: None Dermatologic History: Reports: None - Infectious Disease History Infectious Disease History: Reports: Chicken Pox, Shingles - Past Surgical History Head Surgeries/Procedures: Reports: None HEENT Surgical History: Reports: None Cardiovascular Surgical History: Reports: None GI Surgical History: Reports: Colonoscopy Male Surgical History: Reports: Circumcision Musculoskeletal Surgical History: Reports: Other (See Below) Other Musculoskeletal Surgeries/Procedures:: hand surgery. degenerative disc Social & Family History - Family History Family Medical History: No Pertinent Family History HEENT: Reports: None Cardiac: Reports: None Respiratory: Reports: None GI: Reports: None - Caffeine Use Caffeine Use: Reports: None Caffeine Use Comment: 24 oz. coffee daily & 2 sodas daily average - Living Situation & Occupation Living situation: Reports: with Family ED ROS GENERAL - Review of Systems Review Of Systems: Comprehensive ROS is negative, except as noted in HPI. ED EXAM, GENERAL - Physical Exam Exam: See Below Exam Limited By: No Limitations General Appearance: Alert, WD/WN, Mild Distress Eye Exam: Bilateral Eye: EOMI, Normal Inspection, PERRL (3mm) Nose: Normal Inspection, Normal Mucosa Throat/Mouth: Normal Inspection, Normal Voice, No Airway Compromise. No: Normal Oropharynx (Dry mucous membranes) Head: Atraumatic, Normocephalic Neck: Normal Inspection, Supple, Non-Tender, Full Range of Motion. No: Lymphadenopathy (L), Lymphadenopathy (R) Respiratory/Chest: Lungs Clear, Normal Breath Sounds, Chest Non-Tender, Accessory Muscle Use. No: Crackles, Rales, Rhonchi, Wheezing, Pleural Rub Cardiovascular: Normal Peripheral Pulses, Regular Rate, Rhythm, No Edema, No Gallop, No JVD, No Murmur, No Rub Peripheral Pulses: 2+: Radial (L), Radial (R), Dorsalis Pedis (L), Dorsalis Pedis (R) GI/Abdominal: Normal Bowel Sounds, Soft, Non-Tender, No Distention, No Mass, Pelvis Stable (Male) Exam: Deferred Rectal (Males) Exam: Deferred Back Exam: Normal Inspection, Full Range of Motion Extremities: Normal Inspection, Normal Range of Motion, Non-Tender, No Pedal Edema, Normal Capillary Refill Neurological: Alert, Oriented, Normal Cognition, Normal Gait, No Motor/Sensory Deficits Psychiatric: Normal Affect, Normal Mood Skin Exam: Warm, Dry, Intact, Normal Color, No Rash. No: Ecchymosis, Erythema, Mottled, Pallor, Petechiae #1 Interpretation EKG Date: 07/10/20 Time: 07:29 Rhythm: NSR Rate (Beats/Min): 80 Jarratt: LAD-Left Jarratt Deviation P-Wave: Present QRS: RBBB ST-T: Normal QT: Normal Comparison: No Change EKG Interpretation Comments: NSR; LAD; No evidence of acute ischemia Course - Vital Signs Last Recorded V/S: Last Vital Signs Temp 96.9 F 07/10/20 07:26 Pulse 78 07/10/20 07:26 Resp 18 07/10/20 07:26 BP 166/68 H 07/10/20 07:26 Pulse Ox 100 07/10/20 07:26 - Orders/Labs/Meds Orders: Active Orders 24 hr Category Date Time Status EKG Documentation Completion [RC] STAT Care 07/10/20 07:28 Active Chest 1V Frontal [CR] Urgent Exams 07/10/20 08:05 Ordered CULTURE BLOOD [BC] Stat Lab 07/10/20 07:38 Received REFLEX LACTIC ACID YES OR NO [CHEM] Routine Lab 07/10/20 08:12 Received Labs: Laboratory Tests 07/10/20 07/10/20 07/10/20 Range/Units 07:38 07:38 07:38 WBC 8.7 (5.0-10.0) 10^3/uL RBC 4.25 L (4.6-6.2) 10^6/uL Hgb 13.3 L (14.0-18.0) g/dL Hct 38.4 L (40.0-54.0) % MCV 90.4 (80-100) fL MCH 31.3 (27.0-34.0) pg MCHC 34.6 (33.0-35.0) g/dL Plt Count 270 (150-450) 10^3/uL Neut % (Auto) 68.8 (42.2-75.2) % Lymph % (Auto) 22.6 (20.5-50.1) % Valley % (Auto) 6.2 (2-8) % Eos % (Auto) 2.1 (1.0-3.0) % Baso % (Auto) 0.3 (0.0-1.0) % Sodium 137 (136-145) mmol/L Potassium 3.5 (3.5-5.1) mmol/L Chloride 101 (98-107) mmol/L Carbon Dioxide 23 (21-32) mmol/L Anion Gap 16.5 H (7-13) mEq/L BUN 18 (7-18) mg/dL Creatinine 0.96 (0.70-1.30) mg/dL Est Cr Clr Drug Dosing 89.33 mL/min Estimated GFR (MDRD) > 60 BUN/Creatinine Ratio 18.8 (No establ ref range) Glucose 205 H (74-99) mg/dL Lactic Acid 2.7 H* (0.4-2.0) mmol/L Calcium 9.1 (8.5-10.1) mg/dL Total Bilirubin 0.7 (0.2-1.0) mg/dL AST 16 (15-37) U/L ALT 39 (16-63) U/L Alkaline Phosphatase 75 (46-116) U/L Troponin I < 0.017 (0.000-0.056) ng/mL B-Natriuretic Peptide 19 (0-100) pg/ml Total Protein 7.7 (6.4-8.2) g/dL Albumin 3.6 (3.4-5.0) g/dL Globulin 4.1 Albumin/Globulin Ratio 0.9 Urine Color (YELLOW) Urine Appearance (CLEAR) Urine pH (5.0-9.0) Ur Specific Colbert (1.005-1.030) Urine Protein (NEGATIVE) Urine Glucose (UA) (NEGATIVE) Urine Ketones (NEGATIVE) Urine Occult Blood (NEGATIVE) Urine Nitrite (NEGATIVE) Urine Bilirubin (NEGATIVE) Urine Urobilinogen (0.2-1.0) mg/dL Ur Leukocyte Esterase (NEGATIVE) SARS-CoV-2 RNA (ELIZABETH) (NEGATIVE) 07/10/20 07/10/20 Range/Units 07:38 08:10 WBC (5.0-10.0) 10^3/uL RBC (4.6-6.2) 10^6/uL Hgb (14.0-18.0) g/dL Hct (40.0-54.0) % MCV (80-100) fL MCH (27.0-34.0) pg MCHC (33.0-35.0) g/dL Plt Count (150-450) 10^3/uL Neut % (Auto) (42.2-75.2) % Lymph % (Auto) (20.5-50.1) % Valley % (Auto) (2-8) % Eos % (Auto) (1.0-3.0) % Baso % (Auto) (0.0-1.0) % Sodium (136-145) mmol/L Potassium (3.5-5.1) mmol/L Chloride (98-107) mmol/L Carbon Dioxide (21-32) mmol/L Anion Gap (7-13) mEq/L BUN (7-18) mg/dL Creatinine (0.70-1.30) mg/dL Est Cr Clr Drug Dosing mL/min Estimated GFR (MDRD) BUN/Creatinine Ratio (No establ ref range) Glucose (74-99) mg/dL Lactic Acid (0.4-2.0) mmol/L Calcium (8.5-10.1) mg/dL Total Bilirubin (0.2-1.0) mg/dL AST (15-37) U/L ALT (16-63) U/L Alkaline Phosphatase (46-116) U/L Troponin I (0.000-0.056) ng/mL B-Natriuretic Peptide (0-100) pg/ml Total Protein (6.4-8.2) g/dL Albumin (3.4-5.0) g/dL Globulin Albumin/Globulin Ratio Urine Color Yellow (YELLOW) Urine Appearance Clear (CLEAR) Urine pH 6.5 (5.0-9.0) Ur Specific Colbert 1.015 (1.005-1.030) Urine Protein Negative (NEGATIVE) Urine Glucose (UA) Negative (NEGATIVE) Urine Ketones Negative (NEGATIVE) Urine Occult Blood Negative (NEGATIVE) Urine Nitrite Negative (NEGATIVE) Urine Bilirubin Negative (NEGATIVE) Urine Urobilinogen 0.2 (0.2-1.0) mg/dL Ur Leukocyte Esterase Negative (NEGATIVE) SARS-CoV-2 RNA (ELIZABETH) Positive H (NEGATIVE) Meds: Medications Discontinued Medications Generic Name Dose Route Start Last Admin Trade Name Freq PRN Reason Stop Dose Admin Dexamethasone 6 mg 07/10/20 08:44 Decadron IVPUSH 07/10/20 08:45 ONETIME ONE Methylprednisolone Sodium Succinate 125 mg 07/10/20 08:16 Solu-Medrol IM 07/10/20 08:17 ONETIME ONE Departure - Departure Time of Disposition: 08:56 Disposition: Home, Self-Care 01 Condition: Good Clinical Impression: COVID-19 virus infection, Acute costochondritis - Discharge Information *PRESCRIPTION DRUG MONITORING PROGRAM REVIEWED*: Not Applicable *COPY OF PRESCRIPTION DRUG MONITORING REPORT IN PATIENT NAVEEN: Not Applicable Instructions: Costochondritis, [id number], COVID-19: How to Protect Yourself and Others - CDC, COVID-19 Frequently Asked Questions Forms: ED Department Discharge Additional Instructions: Rx: Dexamethasone 1.) Follow the [facility] Department guidelines regarding quarantine; your quarantine start date is July 08, 2020. 2.) You received a dose of Dexamethasone today in the clinic, start your oral dose tomorrow. 3.) Follow up with your primary care provider after quarantine regarding ongoing pulmonary management. 4.) Drink plenty of fluids to stay hydrated. 5.) You may take ibuprofen (Advil/Motrin) 400mg every six hours for pain, fever, muscle aches. You may take acetaminophen (Tylenol) 650mg every six hours for pain, fever, muscle aches. You may stagger these doses so you are taking a dose of medication every three hours. Sepsis Event Note (ED) - Focused Exam Vital Signs: Vital Signs Temp Pulse Resp BP Pulse Ox 07/10/20 07:26 96.9 F 78 18 166/68 H 100 - My Orders Last 24 Hours: My Active Orders 07/10/20 07:28 EKG Documentation Completion [RC] STAT 07/10/20 07:38 CULTURE BLOOD [BC] Stat 07/10/20 08:05 Chest 1V Frontal [CR] Urgent 07/10/20 08:12 REFLEX LACTIC ACID YES OR NO [CHEM] Routine - Assessment/Plan Last 24 Hours: My Active Orders 07/10/20 07:28 EKG Documentation Completion [RC] STAT 07/10/20 07:38 CULTURE BLOOD [BC] Stat 07/10/20 08:05 Chest 1V Frontal [CR] Urgent 07/10/20 08:12 REFLEX LACTIC ACID YES OR NO [CHEM] Routine
[2020-07-10 08:11] LABS: ANION GAP 16.5 mEq/L (7-13); CHLORIDE,CL 101 mmol/L (98-107); SODIUM,NA 137 mmol/L (136-145)
[2020-07-10] MEDS ORDERED: methylPREDNISolone Sodium Succinate 125 MG/2 ML SDV IM ONE (08:16)
[2020-07-10] MEDS ORDERED: Dexamethasone 4 MG/ML SDV IVPUSH ONE (08:44)
[2020-07-10 09:02] VITALS: BP 121/61
--- NOTE | 2020-07-10 09:03 | CR ---
PROCEDURE INFORMATION: Exam: XR Chest, 1 View Exam date and time: 07/10/2020 8:47 AM Age: 59 years old Clinical indication: Shortness of breath TECHNIQUE: Imaging protocol: XR of the chest Views: 1 view. COMPARISON: CR Chest 1V Frontal 06/22/2020 8:46 AM FINDINGS: Lungs: Peripheral infiltrates in the left mid and lower lung, progressed since 06/22/2020 Pleural space: Unremarkable. No pleural effusion. No pneumothorax. Heart/Mediastinum: Unremarkable. No cardiomegaly. Bones/joints: Unremarkable. Other findings: Shallow inspiration. IMPRESSION: Peripheral infiltrate in the left mid and lower lung.
== END 2020-07-10 09:21 | disposition home or self-care (01) ==
LOC: DL.ED 07:17
DX: U07.1 COVID-19 (principal); M94.0 Chondrocostal junction syndrome [Tietze]; E78.00 Pure hypercholesterolemia, unspecified; I10 Essential (primary) hypertension; E11.40 Type 2 diabetes mellitus with diabetic neuropathy, unspecified; E11.21 Type 2 diabetes mellitus with diabetic nephropathy; M19.90 Unspecified osteoarthritis, unspecified site; E66.9 Obesity, unspecified; Z68.35 Body mass index [BMI] 35.0-35.9, adult; Z79.82 Long term (current) use of aspirin; Z79.4 Long term (current) use of insulin; Z79.899 Other long term (current) drug therapy
CPT/HCPCS: 36415; 71045; 80053; 81003; 83605; 83880; 84484; 85025; 87040; 87635; 93005; 96374; 99285; J1100; U0002

== ENCOUNTER 2020-08-17 05:48 | Emergency (ER) | payer OTHER ==
[2020-08-17 06:00] VITALS: BP 140/69; PULSE 82
--- NOTE | 2020-08-17 06:16 | EDM.PDOC ---
<Cathie Jeronimo - Last Filed: 08/17/20 08:09> ED HPI GENERAL MEDICAL PROBLEM - General Chief Complaint: Respiratory Problem Stated Complaint: CANT SLEEP/CANT BREATHE/SLEEP APNEA? Time Seen by Provider: 08/17/20 06:00 - History of Present Illness Onset: Today - Related Data Allergies Allergy/AdvReac Type Severity Reaction Status Date / Time No Known Allergies Allergy Verified 08/17/20 06:00 Home Meds: Home Meds Insulin Aspart [NovoLOG] 30 units SQ TIDAC 07/18/13 [History] Insulin Detemir [Levemir] 65 unit SQ BID 07/18/13 [History] Simvastatin [Zocor] 20 mg PO BEDTIME 07/18/13 [History] Aspirin [Aspirin EC] 81 mg PO DAILY 04/15/14 [History] Multivitamin 1 tab PO DAILY 04/15/14 [History] Liraglutide [Victoza] 18 mg IM DAILY 03/22/18 [History] metFORMIN [Glucophage XR] 1,000 mg PO BID 04/29/18 [History] Gabapentin [Neurontin] 600 mg PO TID 05/19/19 [History] Cholecalciferol (Vitamin D3) [Vitamin D3] 25 gm MC DAILY 06/22/20 [History] Fish Oil/Jean-3 Fatty Acids [Fish Oil 1,000 MG] 1 each PO DAILY 06/22/20 [History] lisinopriL [Lisinopril] 40 mg PO DAILY 06/22/20 [History] Course - Radiology Interpretation Free Text/Narrative:: Chest xray: PROCEDURE INFORMATION: Exam: XR Chest, 1 View Exam date and time: 08/17/2020 6:50 AM Age: 60 years old Clinical indication: Shortness of breath; Additional info: SOB TECHNIQUE: Imaging protocol: XR of the chest Views: 1 view. COMPARISON: CR Chest 1V Frontal 07/10/2020 8:47 AM FINDINGS: Lungs: Minimal ground-glass airspace disease at the lung bases bilaterally. Pleural space: Unremarkable. No pleural effusion. No pneumothorax. Heart/Mediastinum: Unremarkable. No cardiomegaly. Bones/joints: Unremarkable. IMPRESSION: 1. Minimal ground-glass airspace disease at the lung bases bilaterally. 2. Followup radiographs recommended after appropriate therapy. Thank you for allowing us to participate in the care of your patient. Dictated and Authenticated by: Edgardo Ma MD 08/17/2020 7:12 AM Central Time ([place] & [place]) See rad report Departure - Departure Time of Disposition: 07:59 Disposition: Home, Self-Care 01 Condition: Fair Clinical Impression: Breathlessness lying flat, SOB (shortness of breath), COPD exacerbation - Discharge Information *PRESCRIPTION DRUG MONITORING PROGRAM REVIEWED*: No *COPY OF PRESCRIPTION DRUG MONITORING REPORT IN PATIENT NAVEEN: No Instructions: Chronic Obstructive Pulmonary Disease Exacerbation, [id number], Upper Respiratory Infection, Adult, [id number] Forms: ED Department Discharge Additional Instructions: RX: Azithromycin, Albuterol inhaler Sleep with pillows to prop you up or in recliner if this helps you breathe better Wear compression stockings Follow up with your primary care facility Hydrocortisone Cream (over the counter) to rash 3 times daily until healed May use Benadryl as directed for itching and rash Return to the ER if worsening of symptoms <Carolina Shaffer - Last Filed: 08/20/20 01:34> ED HPI GENERAL MEDICAL PROBLEM - General Source of Information: Reports: Patient History Limitations: Reports: No Limitations - History of Present Illness INITIAL COMMENTS - FREE TEXT/NARRATIVE: ED with c/o SOB, worse when lying flat, no current cough. Nausea yesterday. Chills No vomiting or diarrhea. Swelling left lower leg x 2 months. COVID 07/10. No diarrhea. No racing heart or noted palpitations. Tried inhaler [employer]LE INSPECTOR did not help. Treatments [employer]ANS[employer]HICLE INSPECTOR: Reports: Other Medication(s) Past Medical History - Past Health History Medical/Surgical History: Denies Medical/Surgical History HEENT History: Reports: Impaired Vision Cardiovascular History: Reports: High Cholesterol, Hypertension Respiratory History: Reports: None Gastrointestinal History: Reports: None Genitourinary History: Reports: Diabetic Nephropathy Musculoskeletal History: Reports: Arthritis, Back Pain, Chronic, Fracture Neurological History: Reports: Migraines Psychiatric History: Reports: None Endocrine/Metabolic History: Reports: Diabetes, Type II, Obesity/BMI 30+ Hematologic History: Reports: Anemia Immunologic History: Reports: None Oncologic (Cancer) History: Reports: None Dermatologic History: Reports: None - Infectious Disease History Infectious Disease History: Reports: Chicken Pox, Shingles - Past Surgical History Head Surgeries/Procedures: Reports: None HEENT Surgical History: Reports: None Cardiovascular Surgical History: Reports: None GI Surgical History: Reports: Colonoscopy Male Surgical History: Reports: Circumcision Musculoskeletal Surgical History: Reports: Other (See Below) Other Musculoskeletal Surgeries/Procedures:: hand surgery. degenerative disc Social & Family History - Family History Family Medical History: No Pertinent Family History HEENT: Reports: None Cardiac: Reports: None Respiratory: Reports: None GI: Reports: None - Tobacco Use Tobacco Use Status *Q: Former Tobacco User Used Tobacco, but Quit: No - Caffeine Use Caffeine Use: Reports: Coffee, Energy Drinks, Soda Caffeine Use Comment: 24 oz. coffee daily & 2 sodas daily average - Recreational Drug Use Recreational Drug Use: No - Living Situation & Occupation Living situation: Reports: with Family ED ROS GENERAL - Review of Systems Review Of Systems: Comprehensive ROS is negative, except as noted in HPI. ED EXAM, GENERAL - Physical Exam Exam: See Below Exam Limited By: No Limitations General Appearance: Alert, Mild Distress, Obese Ears: Normal External Exam, Hearing Grossly Normal Nose: Normal Inspection Throat/Mouth: Normal Inspection Head: Atraumatic, Normocephalic Neck: Normal Inspection Respiratory/Chest: No Respiratory Distress, Decreased Breath Sounds (bases) Cardiovascular: Normal Peripheral Pulses, Regular Rate, Rhythm. No: No Edema (2+ left lowr) GI/Abdominal: Normal Bowel Sounds, Soft Back Exam: Normal Inspection Extremities: Normal Inspection, Normal Range of Motion Neurological: Alert, Oriented, Normal Cognition Psychiatric: Flat Affect Skin Exam: Warm, Dry, Intact, Normal Color Course - Vital Signs Last Recorded V/S: Last Vital Signs Temp 97.5 F 08/17/20 05:56 Pulse 82 08/17/20 05:56 Resp 16 08/17/20 05:56 BP 140/69 08/17/20 05:56 Pulse Ox 97 08/17/20 05:56 - Orders/Labs/Meds Labs: Laboratory Tests 08/17/20 08/17/20 08/17/20 Range/Units 06:18 06:18 06:18 WBC 11.5 H (5.0-10.0) 10^3/uL RBC 3.86 L (4.6-6.2) 10^6/uL Hgb 12.3 L (14.0-18.0) g/dL Hct 35.7 L (40.0-54.0) % MCV 92.5 (80-100) fL MCH 31.9 (27.0-34.0) pg MCHC 34.5 (33.0-35.0) g/dL Plt Count 317 (150-450) 10^3/uL Neut % (Auto) 84.2 H (42.2-75.2) % Lymph % (Auto) 8.8 L (20.5-50.1) % Gaines % (Auto) 5.8 (2-8) % Eos % (Auto) 0.9 L (1.0-3.0) % Baso % (Auto) 0.3 (0.0-1.0) % D-Dimer, Quantitative 397 (0-400) ng/mL Sodium 137 (136-145) mmol/L Potassium 3.8 (3.5-5.1) mmol/L Chloride 102 (98-107) mmol/L Carbon Dioxide 26 (21-32) mmol/L Anion Gap 12.8 (7-13) mEq/L BUN 22 H (7-18) mg/dL Creatinine 0.96 (0.70-1.30) mg/dL Est Cr Clr Drug Dosing 88.24 mL/min Estimated GFR (MDRD) > 60 BUN/Creatinine Ratio 22.9 (No establ ref range) Glucose 349 H (74-99) mg/dL Lactic Acid (0.4-2.0) mmol/L Calcium 8.5 (8.5-10.1) mg/dL Magnesium 1.8 (1.8-2.4) mg/dL Total Bilirubin 0.6 (0.2-1.0) mg/dL AST 14 L (15-37) U/L ALT 31 (16-63) U/L Alkaline Phosphatase 75 (46-116) U/L Troponin I < 0.017 (0.000-0.056) ng/mL C-Reactive Protein 1.2 H (0.0-0.9) mg/dL B-Natriuretic Peptide 16 (0-100) pg/ml Total Protein 7.2 (6.4-8.2) g/dL Albumin 3.4 (3.4-5.0) g/dL Globulin 3.8 Albumin/Globulin Ratio 0.9 Urine Color (YELLOW) Urine Appearance (CLEAR) Urine pH (5.0-9.0) Ur Specific Alk[place] (1.005-1.030) Urine Protein (NEGATIVE) Urine Glucose (UA) (NEGATIVE) Urine Ketones (NEGATIVE) Urine Occult Blood (NEGATIVE) Urine Nitrite (NEGATIVE) Urine Bilirubin (NEGATIVE) Urine Urobilinogen (0.2-1.0) mg/dL Ur Leukocyte Esterase (NEGATIVE) 08/17/20 08/17/20 Range/Units 06:18 07:35 WBC (5.0-10.0) 10^3/uL RBC (4.6-6.2) 10^6/uL Hgb (14.0-18.0) g/dL Hct (40.0-54.0) % MCV (80-100) fL MCH (27.0-34.0) pg MCHC (33.0-35.0) g/dL Plt Count (150-450) 10^3/uL Neut % (Auto) (42.2-75.2) % Lymph % (Auto) (20.5-50.1) % Gaines % (Auto) (2-8) % Eos % (Auto) (1.0-3.0) % Baso % (Auto) (0.0-1.0) % D-Dimer, Quantitative (0-400) ng/mL Sodium (136-145) mmol/L Potassium (3.5-5.1) mmol/L Chloride (98-107) mmol/L Carbon Dioxide (21-32) mmol/L Anion Gap (7-13) mEq/L BUN (7-18) mg/dL Creatinine (0.70-1.30) mg/dL Est Cr Clr Drug Dosing mL/min Estimated GFR (MDRD) BUN/Creatinine Ratio (No establ ref range) Glucose (74-99) mg/dL Lactic Acid 1.0 (0.4-2.0) mmol/L Calcium (8.5-10.1) mg/dL Magnesium (1.8-2.4) mg/dL Total Bilirubin (0.2-1.0) mg/dL AST (15-37) U/L ALT (16-63) U/L Alkaline Phosphatase (46-116) U/L Troponin I (0.000-0.056) ng/mL C-Reactive Protein (0.0-0.9) mg/dL B-Natriuretic Peptide (0-100) pg/ml Total Protein (6.4-8.2) g/dL Albumin (3.4-5.0) g/dL Globulin Albumin/Globulin Ratio Urine Color Yellow (YELLOW) Urine Appearance Clear (CLEAR) Urine pH 5.5 (5.0-9.0) Ur Specific Alkol 1.025 (1.005-1.030) Urine Protein Negative (NEGATIVE) Urine Glucose (UA) 500 H (NEGATIVE) Urine Ketones Negative (NEGATIVE) Urine Occult Blood Negative (NEGATIVE) Urine Nitrite Negative (NEGATIVE) Urine Bilirubin Negative (NEGATIVE) Urine Urobilinogen 0.2 (0.2-1.0) mg/dL Ur Leukocyte Esterase Negative (NEGATIVE) Sepsis Event Note (ED) - Evaluation Sepsis Screening Result: No Definite Risk
[2020-08-17 06:55] LABS: ANION GAP 12.8 mEq/L (7-13); CHLORIDE,CL 102 mmol/L (98-107); SODIUM,NA 137 mmol/L (136-145)
--- NOTE | 2020-08-17 07:12 | CR ---
PROCEDURE INFORMATION: Exam: XR Chest, 1 View Exam date and time: 08/17/2020 6:50 AM Age: 60 years old Clinical indication: Shortness of breath; Additional info: SOB TECHNIQUE: Imaging protocol: XR of the chest Views: 1 view. COMPARISON: CR Chest 1V Frontal 07/10/2020 8:47 AM FINDINGS: Lungs: Minimal ground-glass airspace disease at the lung bases bilaterally. Pleural space: Unremarkable. No pleural effusion. No pneumothorax. Heart/Mediastinum: Unremarkable. No cardiomegaly. Bones/joints: Unremarkable. IMPRESSION: 1. Minimal ground-glass airspace disease at the lung bases bilaterally. 2. Followup radiographs recommended after appropriate therapy.
== END 2020-08-17 08:11 | disposition home or self-care (01) ==
LOC: DL.ED 05:48
DX: J44.1 Chronic obstructive pulmonary disease with (acute) exacerbation (principal); R06.81 Apnea, not elsewhere classified; E78.00 Pure hypercholesterolemia, unspecified; I10 Essential (primary) hypertension; E11.21 Type 2 diabetes mellitus with diabetic nephropathy; E66.9 Obesity, unspecified; M19.90 Unspecified osteoarthritis, unspecified site; Z87.891 Personal history of nicotine dependence; Z79.899 Other long term (current) drug therapy; Z68.36 Body mass index [BMI] 36.0-36.9, adult; Z79.4 Long term (current) use of insulin; Z79.82 Long term (current) use of aspirin
CPT/HCPCS: 36415; 71045; 80053; 81003; 83605; 83735; 83880; 84484; 85025; 85379; 86140; 87040; 93005; 99283; 99285-25

== ENCOUNTER 2020-08-17 20:34 | Emergency (ER) | payer OTHER ==
[2020-08-17 20:54] VITALS: BP 152/69; PULSE 84
[2020-08-17] MEDS ORDERED: LORazepam 1 MG Tab PO ONE (21:27)
--- NOTE | 2020-08-17 21:32 | EDM.PDOC ---
ED HPI GENERAL MEDICAL PROBLEM - General Chief Complaint: Respiratory Problem Stated Complaint: COVID 3 WEEKS AGO, BREATHING,NAUSEA,FATIGUE.... Time Seen by Provider: 08/17/20 21:28 Source of Information: Reports: Patient History Limitations: Reports: No Limitations - History of Present Illness INITIAL COMMENTS - FREE TEXT/NARRATIVE: got covid 3 weeks ago, now been having problem sleeping. was Tx with Rx and took them. states worried about covid all the time. - Related Data Allergies Allergy/AdvReac Type Severity Reaction Status Date / Time No Known Allergies Allergy Verified 08/17/20 06:00 Home Meds: Home Meds Insulin Aspart [NovoLOG] 30 units SQ TIDAC 07/18/13 [History] Insulin Detemir [Levemir] 65 unit SQ BID 07/18/13 [History] Simvastatin [Zocor] 20 mg PO BEDTIME 07/18/13 [History] Aspirin [Aspirin EC] 81 mg PO DAILY 04/15/14 [History] Multivitamin 1 tab PO DAILY 04/15/14 [History] Liraglutide [Victoza] 18 mg IM DAILY 03/22/18 [History] metFORMIN [Glucophage XR] 1,000 mg PO BID 04/29/18 [History] Gabapentin [Neurontin] 600 mg PO TID 05/19/19 [History] Cholecalciferol (Vitamin D3) [Vitamin D3] 25 gm MC DAILY 06/22/20 [History] Fish Oil/[place]-3 Fatty Acids [Fish Oil 1,000 MG] 1 each PO DAILY 06/22/20 [History] lisinopriL [Lisinopril] 40 mg PO DAILY 06/22/20 [History] Past Medical History - Past Health History Medical/Surgical History: Denies Medical/Surgical History HEENT History: Reports: Impaired Vision Cardiovascular History: Reports: High Cholesterol, Hypertension Respiratory History: Reports: None Gastrointestinal History: Reports: None Genitourinary History: Reports: Diabetic Nephropathy Musculoskeletal History: Reports: Arthritis, Back Pain, Chronic, Fracture Neurological History: Reports: Migraines Psychiatric History: Reports: None Endocrine/Metabolic History: Reports: Diabetes, Type II, Obesity/BMI 30+ Hematologic History: Reports: Anemia Immunologic History: Reports: None Oncologic (Cancer) History: Reports: None Dermatologic History: Reports: None - Infectious Disease History Infectious Disease History: Reports: Chicken Pox, Shingles - Past Surgical History Head Surgeries/Procedures: Reports: None HEENT Surgical History: Reports: None Cardiovascular Surgical History: Reports: None GI Surgical History: Reports: Colonoscopy Male Surgical History: Reports: Circumcision Musculoskeletal Surgical History: Reports: Other (See Below) Other Musculoskeletal Surgeries/Procedures:: hand surgery. degenerative disc Social & Family History - Family History Family Medical History: No Pertinent Family History HEENT: Reports: None Cardiac: Reports: None Respiratory: Reports: None GI: Reports: None - Tobacco Use Tobacco Use Status *Q: Unknown Ever Used Tobacco - Caffeine Use Caffeine Use: Reports: Coffee, Energy Drinks, Soda, Tea Caffeine Use Comment: 24 oz. coffee daily & 2 sodas daily average - Recreational Drug Use Recreational Drug Use: No - Living Situation & Occupation Living situation: Reports: with Family ED ROS GENERAL - Review of Systems Review Of Systems: Comprehensive ROS is negative, except as noted in HPI. ED EXAM, GENERAL - Physical Exam Exam: See Below Exam Limited By: No Limitations General Appearance: Alert, WD/WN, Anxious, Mild Distress Ears: Hearing Grossly Normal Throat/Mouth: Normal Voice, No Airway Compromise Head: Atraumatic Neck: Non-Tender, Full Range of Motion Respiratory/Chest: No Respiratory Distress Cardiovascular: Regular Rate, Rhythm GI/Abdominal: Soft, Non-Tender (Male) Exam: Deferred Rectal (Males) Exam: Deferred Neurological: Alert, Oriented, Normal Cognition, Normal Gait, No Motor/Sensory Deficits Psychiatric: Anxious Skin Exam: Warm, Dry, Normal Color Lymphatic: No Adenopathy Course - Vital Signs Last Recorded V/S: Last Vital Signs Temp 36.5 C 08/17/20 20:49 Pulse 84 08/17/20 20:49 Resp 18 08/17/20 20:49 BP 152/69 H 08/17/20 20:49 Pulse Ox 100 08/17/20 20:49 - Orders/Labs/Meds Orders: Active Orders 24 hr Category Date Time Status LORazepam [Ativan] Med 08/17/20 21:27 Once 1 mg PO ONETIME ONE Departure - Departure Time of Disposition: 21:30 Disposition: Home, Self-Care 01 Condition: Good Clinical Impression: Situational anxiety Insomnia Qualifiers: Insomnia type: due to medical condition Qualified Code(s): G47.01 - Insomnia due to medical condition - Discharge Information Additional Instructions: 1) rest 2) follow up at clinic rx given; hydroxyzine 25mg HS prn x 6 Sepsis Event Note (ED) - Evaluation Sepsis Screening Result: No Definite Risk - Focused Exam Vital Signs: Vital Signs Temp Pulse Resp BP Pulse Ox 08/17/20 20:49 36.5 C 84 18 152/69 H 100 - My Orders Last 24 Hours: My Active Orders 08/17/20 21:27 LORazepam [Ativan] 1 mg PO ONETIME ONE - Assessment/Plan Last 24 Hours: My Active Orders 08/17/20 21:27 LORazepam [Ativan] 1 mg PO ONETIME ONE
== END 2020-08-17 21:50 | disposition home or self-care (01) ==
LOC: DL.ED 20:34
DX: G47.01 Insomnia due to medical condition (principal); F41.9 Anxiety disorder, unspecified; E78.00 Pure hypercholesterolemia, unspecified; I10 Essential (primary) hypertension; E11.21 Type 2 diabetes mellitus with diabetic nephropathy; M19.90 Unspecified osteoarthritis, unspecified site; E66.9 Obesity, unspecified; Z68.35 Body mass index [BMI] 35.0-35.9, adult; Z86.16 Personal history of COVID-19; Z79.4 Long term (current) use of insulin; Z79.82 Long term (current) use of aspirin; Z79.899 Other long term (current) drug therapy
CPT/HCPCS: 99283; A9270

== ENCOUNTER 2021-03-06 21:41 | Emergency (ER) | payer OTHER ==
[2021-03-06 21:59] VITALS: BP 149/60; PULSE 76
--- NOTE | 2021-03-06 21:59 | EDM.PDOC ---
ED HPI GENERAL MEDICAL PROBLEM - General Chief Complaint: Skin Complaint Stated Complaint: NAV[employer], FROM GALBLADDER SURG. Time Seen by Provider: 03/06/21 22:02 Source of Information: Reports: Patient, RN History Limitations: Reports: No Limitations - History of Present Illness INITIAL COMMENTS - FREE TEXT/NARRATIVE: Cholecystectomy on Wednesday. Noted increased redness around naval lap site this ayden. Increased pain in area tonight. Normal BM, No distension, some slight increase activity today. no Fever or chills. 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 - Related Data Allergies Allergy/AdvReac Type Severity Reaction Status Date / Time No Known Allergies Allergy Verified 08/17/20 06:00 Home Meds: Home Meds Insulin Aspart [NovoLOG] 30 units SQ TIDAC 07/18/13 [History] Insulin Detemir [Levemir] 65 unit SQ BID 07/18/13 [History] Simvastatin [Zocor] 20 mg PO BEDTIME 07/18/13 [History] Aspirin [Aspirin EC] 81 mg PO DAILY 04/15/14 [History] Multivitamin 1 tab PO DAILY 04/15/14 [History] Liraglutide [Victoza] 18 mg IM DAILY 03/22/18 [History] metFORMIN [Glucophage XR] 1,000 mg PO BID 04/29/18 [History] Gabapentin [Neurontin] 600 mg PO TID 05/19/19 [History] Cholecalciferol (Vitamin D3) [Vitamin D3] 25 gm MC DAILY 06/22/20 [History] Fish Oil/[place]-3 Fatty Acids [Fish Oil 1,000 MG] 1 each PO DAILY 06/22/20 [History] lisinopriL [Lisinopril] 40 mg PO DAILY 06/22/20 [History] Past Medical History - Past Health History Medical/Surgical History: Denies Medical/Surgical History HEENT History: Reports: Impaired Vision Cardiovascular History: Reports: High Cholesterol, Hypertension Respiratory History: Reports: None Gastrointestinal History: Reports: None Genitourinary History: Reports: Diabetic Nephropathy Musculoskeletal History: Reports: Arthritis, Back Pain, Chronic, Fracture Neurological History: Reports: Migraines Psychiatric History: Reports: None Endocrine/Metabolic History: Reports: Diabetes, Type II, Obesity/BMI 30+ Hematologic History: Reports: Anemia Immunologic History: Reports: None Oncologic (Cancer) History: Reports: None Dermatologic History: Reports: None - Infectious Disease History Infectious Disease History: Reports: Chicken Pox, Shingles - Past Surgical History Head Surgeries/Procedures: Reports: None HEENT Surgical History: Reports: None Cardiovascular Surgical History: Reports: None GI Surgical History: Reports: Colonoscopy Male Surgical History: Reports: Circumcision Musculoskeletal Surgical History: Reports: Other (See Below) Other Musculoskeletal Surgeries/Procedures:: hand surgery. degenerative disc Social & Family History - Family History Family Medical History: No Pertinent Family History HEENT: Reports: None Cardiac: Reports: None Respiratory: Reports: None GI: Reports: None - Caffeine Use Caffeine Use: Reports: Coffee, Energy Drinks, Soda, Tea Caffeine Use Comment: 24 oz. coffee daily & 2 sodas daily average - Living Situation & Occupation Living situation: Reports: with Family ED ROS GENERAL - Review of Systems Review Of Systems: Comprehensive ROS is negative, except as noted in HPI. ED EXAM, SKIN/RASH Exam: See Below Exam Limited By: No Limitations General Appearance: Alert, Mild Distress Eye Exam: Bilateral Eye: EOMI Ears: Normal External Exam Nose: Normal Inspection Throat/Mouth: Normal Inspection Head: Atraumatic, Normocephalic Neck: Normal Inspection Respiratory/Chest: No Respiratory Distress, Lungs Clear, Normal Breath Sounds Cardiovascular: Normal Peripheral Pulses, Regular Rate, Rhythm GI/Abdominal: Normal Bowel Sounds, Soft, No Distention, Tender (surrounding lap sites). No: Distended Extremities: Normal Inspection Neurological: Alert, Oriented, Normal Cognition Skin: Warm, Dry, Wound/Incision (suprgical abdominal laprosocpic incisions consistant with cholecystectomy. glue closure. Umbilical site with scant erythema lower mid, surrounding ecchymosis. No drainage. ) Location, Skin: Abdomen Course - Vital Signs Last Recorded V/S: Last Vital Signs Temp 96.9 F 03/06/21 21:55 Pulse 76 03/06/21 21:55 Resp 18 03/06/21 21:55 BP 149/60 H 03/06/21 21:55 Pulse Ox 98 03/06/21 21:55 - Orders/Labs/Meds Meds: Medications Discontinued Medications Generic Name Dose Route Start Last Admin Trade Name Freq PRN Reason Stop Dose Admin Doxycycline Monohydrate 100 mg 03/06/21 22:01 03/06/21 22:18 Doxycycline Monohydrate 100 Mg Cap PO 03/06/21 22:02 100 mg ONETIME ONE Administration Departure - Departure Time of Disposition: 22:04 Disposition: Home, Self-Care 01 Condition: Good Clinical Impression: Superficial postoperative wound infection, S/P cholecystectomy - Discharge Information *PRESCRIPTION DRUG MONITORING PROGRAM REVIEWED*: No *COPY OF PRESCRIPTION DRUG MONITORING REPORT IN PATIENT NAVEEN: No Instructions: Wound Infection, [id number] Forms: ED Department Discharge Additional Instructions: doxycycline 100mg twice daily follow up with surgeon if increased redness swelling drainage or fever tylenol 500mg every 4 hours as needed for discomfort
[2021-03-06] MEDS ORDERED: Doxycycline Monohydrate 100 MG Cap PO ONE (22:01)
== END 2021-03-06 22:19 | disposition home or self-care (01) ==
LOC: DL.ED 21:41
DX: T81.49XA Infection following a procedure, other surgical site, initial encounter (principal); E78.00 Pure hypercholesterolemia, unspecified; I10 Essential (primary) hypertension; E11.21 Type 2 diabetes mellitus with diabetic nephropathy; M19.90 Unspecified osteoarthritis, unspecified site; G43.909 Migraine, unspecified, not intractable, without status migrainosus; E66.9 Obesity, unspecified; Z68.36 Body mass index [BMI] 36.0-36.9, adult; Z90.49 Acquired absence of other specified parts of digestive tract; Z79.4 Long term (current) use of insulin; Z79.82 Long term (current) use of aspirin; Z79.899 Other long term (current) drug therapy
CPT/HCPCS: 99283; A9270

== ENCOUNTER 2021-05-18 01:54 | Emergency (ER) | payer OTHER ==
--- NOTE | 2021-05-18 02:20 | EDM.PDOC ---
ED HPI GENERAL MEDICAL PROBLEM - General Chief Complaint: Respiratory Problem Stated Complaint: SHORTNESS OF BREATH, DIZZY, FATIGUE, HEART FLUTTER Time Seen by Provider: 05/18/21 02:14 - History of Present Illness INITIAL COMMENTS - FREE TEXT/NARRATIVE: Pt is here for trouble breathing. He notes that he has not been feeling well for a few days with fatigue and cough. However, today he started to get a lot of nasal congestion and cannot breath now so he came in to the ER. He has had his COVID vaccine. His grand kids have been sick with URI and he has been around them. He notes a little cough. Some nausea, but no vomiting. No fevers or chills. He does not smoke cigarettes any more but does smoke medical marijuana. Onset: Gradual Duration: Day(s): Lower Back Pain Score (Numeric/FACES): 5 - Related Data Allergies Allergy/AdvReac Type Severity Reaction Status Date / Time No Known Allergies Allergy Verified 05/18/21 02:43 Home Meds: Home Meds Insulin Aspart [NovoLOG] 30 units SQ TIDAC 07/18/13 [History] Insulin Detemir [Levemir] 65 unit SQ BID 07/18/13 [History] Simvastatin [Zocor] 20 mg PO BEDTIME 07/18/13 [History] Aspirin [Aspirin EC] 81 mg PO DAILY 04/15/14 [History] Multivitamin 1 tab PO DAILY 04/15/14 [History] Liraglutide [Victoza] 18 mg IM DAILY 03/22/18 [History] metFORMIN [Glucophage XR] 1,000 mg PO BID 04/29/18 [History] Gabapentin [Neurontin] 600 mg PO TID 05/19/19 [History] Cholecalciferol (Vitamin D3) [Vitamin D3] 25 gm MC DAILY 06/22/20 [History] Fish Oil/[place]-3 Fatty Acids [Fish Oil 1,000 MG] 1 each PO DAILY 06/22/20 [History] lisinopriL [Lisinopril] 40 mg PO DAILY 06/22/20 [History] Past Medical History - Past Health History Medical/Surgical History: Denies Medical/Surgical History HEENT History: Reports: Impaired Vision Cardiovascular History: Reports: High Cholesterol, Hypertension Respiratory History: Reports: None Gastrointestinal History: Reports: None Genitourinary History: Reports: Diabetic Nephropathy Musculoskeletal History: Reports: Arthritis, Back Pain, Chronic, Fracture Neurological History: Reports: Migraines Psychiatric History: Reports: None Endocrine/Metabolic History: Reports: Diabetes, Type II, Obesity/BMI 30+ Hematologic History: Reports: Anemia Immunologic History: Reports: None Oncologic (Cancer) History: Reports: None Dermatologic History: Reports: None - Infectious Disease History Infectious Disease History: Reports: Chicken Pox, Shingles - Past Surgical History Head Surgeries/Procedures: Reports: None HEENT Surgical History: Reports: None Cardiovascular Surgical History: Reports: None GI Surgical History: Reports: Colonoscopy Male Surgical History: Reports: Circumcision Musculoskeletal Surgical History: Reports: Other (See Below) Other Musculoskeletal Surgeries/Procedures:: hand surgery. degenerative disc Social & Family History - Family History Family Medical History: No Pertinent Family History HEENT: Reports: None Cardiac: Reports: None Respiratory: Reports: None GI: Reports: None - Caffeine Use Caffeine Use: Reports: Coffee Caffeine Use Comment: 24 oz. coffee daily & 2 sodas daily average - Living Situation & Occupation Living situation: Reports: with Family ED ROS GENERAL - Review of Systems Review Of Systems: Comprehensive ROS is negative, except as noted in HPI. ED EXAM, GENERAL - Physical Exam Exam: See Below Exam Limited By: No Limitations General Appearance: Alert, WD/WN, No Apparent Distress Eye Exam: Bilateral Eye: Normal Inspection Ears: Normal External Exam Nose: Normal Inspection, Nasal Drainage (and congestion) Throat/Mouth: Normal Voice, No Airway Compromise Head: Atraumatic, Normocephalic Neck: Normal Inspection, Supple, Non-Tender Respiratory/Chest: No Respiratory Distress, Lungs Clear, Normal Breath Sounds, No Accessory Muscle Use. No: Rales, Rhonchi, Wheezing Cardiovascular: Normal Peripheral Pulses, Regular Rate, Rhythm, No Edema, No Murmur GI/Abdominal: Soft, Non-Tender, No Distention. No: Guarding, Rebound (Male) Exam: Deferred Rectal (Males) Exam: Deferred Back Exam: Normal Inspection, Full Range of Motion Extremities: Normal Inspection, Normal Range of Motion, No Pedal Edema Neurological: Alert, Oriented, Normal Cognition, No Motor/Sensory Deficits Psychiatric: Normal Affect, Normal Mood Skin Exam: Warm, Dry, Intact, Normal Color, No Rash Lymphatic: No Adenopathy Course - Vital Signs Last Recorded V/S: Last Vital Signs Temp 97.4 F 05/18/21 02:07 Pulse 74 05/18/21 02:07 Resp 18 05/18/21 02:07 BP 155/67 H 05/18/21 02:07 Pulse Ox 95 05/18/21 02:07 - Orders/Labs/Meds Orders: Active Orders 24 hr Category Date Time Status CXR [Chest 2V] [CR] Urgent Exams 05/18/21 02:18 Ordered Labs: Laboratory Tests 05/18/21 05/18/21 Range/Units 02:25 02:25 WBC 7.1 (5.0-10.0) 10^3/uL RBC 3.98 L (4.6-6.2) 10^6/uL Hgb 12.4 L (14.0-18.0) g/dL Hct 35.9 L (40.0-54.0) % MCV 90.2 (80-100) fL MCH 31.2 (27.0-34.0) pg MCHC 34.5 (33.0-35.0) g/dL Plt Count 259 (150-450) 10^3/uL Neut % (Auto) 65.4 (42.2-75.2) % Lymph % (Auto) 22.1 (20.5-50.1) % [place] % (Auto) 7.7 (2-8) % Eos % (Auto) 4.2 H (1.0-3.0) % Baso % (Auto) 0.6 (0.0-1.0) % Sodium 139 (136-145) mmol/L Potassium 4.2 (3.5-5.1) mmol/L Chloride 103 (98-107) mmol/L Carbon Dioxide 28 (21-32) mmol/L Anion Gap 12.2 (7-13) mEq/L BUN 20 H (7-18) mg/dL Creatinine 0.99 (0.70-1.30) mg/dL Est Cr Clr Drug Dosing 85.57 mL/min Estimated GFR (MDRD) > 60 BUN/Creatinine Ratio 20.2 (No establ ref range) Glucose 206 H (70-99) mg/dL Calcium 8.5 (8.5-10.1) mg/dL Total Bilirubin 0.6 (0.2-1.0) mg/dL AST 18 (15-37) U/L ALT 39 (16-63) U/L Alkaline Phosphatase 79 (46-116) U/L Total Protein 7.2 (6.4-8.2) g/dL Albumin 3.7 (3.4-5.0) g/dL Globulin 3.5 Albumin/Globulin Ratio 1.1 - Re-Assessments/Exams Free Text/Narrative Re-Assessment/Exam: Reviewed labs and cxr with the pt. Advised his symptoms may be due to stress/anxiety or a common viral URI that he picked up from his grand kids. Discussed OTC meds as needed for symptoms. Pt verbalized understanding. 05/18/21 03:40 Departure - Departure Time of Disposition: 03:41 Disposition: Home, Self-Care 01 Condition: Good Clinical Impression: Viral upper respiratory infection - Discharge Information *PRESCRIPTION DRUG MONITORING PROGRAM REVIEWED*: Not Applicable *COPY OF PRESCRIPTION DRUG MONITORING REPORT IN PATIENT NAVEEN: Not Applicable Instructions: Upper Respiratory Infection, Adult, [id number] Forms: ED Department Discharge Additional Instructions: Over the counter medications as needed for symptomatic relief Call/return to the ER if your symptoms worsen. Follow up with your primary care provider in 3-5 days Sepsis Event Note (ED) - Focused Exam Vital Signs: Vital Signs Temp Pulse Resp BP Pulse Ox 05/18/21 02:07 97.4 F 74 18 155/67 H 95 - My Orders Last 24 Hours: My Active Orders 05/18/21 02:18 CXR [Chest 2V] [CR] Urgent - Assessment/Plan Last 24 Hours: My Active Orders 05/18/21 02:18 CXR [Chest 2V] [CR] Urgent
[2021-05-18 02:31] VITALS: BP 155/67; PULSE 74
[2021-05-18 02:45] LABS: ANION GAP 12.2 mEq/L (7-13); CHLORIDE,CL 103 mmol/L (98-107); SODIUM,NA 139 mmol/L (136-145)
--- NOTE | 2021-05-18 04:02 | CR ---
PROCEDURE INFORMATION: Exam: XR Chest Exam date and time: 05/18/2021 2:29 AM Age: 60 years old Clinical indication: Shortness of breath TECHNIQUE: Imaging protocol: XR of the chest. Views: 2 views. COMPARISON: CT Abdomen Pelvis w Cont 04/11/2020 8:39 PM FINDINGS: Lungs: There are some linear and interstitial opacities seen in the lower hemithoraces bilaterally that likely represents atelectasis. A bilateral basilar interstitial pneumonitis cannot be entirely excluded. Pleural spaces: Unremarkable. No pleural effusion. No pneumothorax. Heart/Mediastinum: Unremarkable. No cardiomegaly. Bones/joints: Unremarkable. IMPRESSION: Probable mild bilateral basilar atelectasis although bilateral basilar interstitial pneumonitis cannot be entirely excluded.
== END 2021-05-18 03:57 | disposition home or self-care (01) ==
LOC: DL.ED 01:54
DX: J06.9 Acute upper respiratory infection, unspecified (principal); E78.00 Pure hypercholesterolemia, unspecified; I10 Essential (primary) hypertension; E11.9 Type 2 diabetes mellitus without complications; E66.9 Obesity, unspecified; Z68.36 Body mass index [BMI] 36.0-36.9, adult
CPT/HCPCS: 36415; 71046; 80053; 85025; 99283-25

== ENCOUNTER 2022-03-31 00:18 | Emergency (ER) | payer MEDICAID, OTHER ==
[2022-03-31] MEDS ORDERED: Lidocaine 2% Viscous Solution 15 ML UD PO ONE (00:19)
[2022-03-31] MEDS ORDERED: Amoxicillin 500 MG Cap PO ONE (00:19)
[2022-03-31] MEDS ORDERED: Acetaminophen/HYDROcodone 325-10 MG Tab PO ONE (00:19)
== END 2022-03-31 01:22 | disposition home or self-care (01) ==
LOC: DL.ED 00:18
DX: K08.89 Other specified disorders of teeth and supporting structures (principal); S60.512A Abrasion of left hand, initial encounter; E11.9 Type 2 diabetes mellitus without complications
CPT/HCPCS: 99282; A9270

== ENCOUNTER 2022-04-04 00:35 | Emergency (ER) | payer MEDICAID ==
[2022-04-04] MEDS ORDERED: Acetaminophen/HYDROcodone 325-10 MG Tab PO ONE (00:52)
[2022-04-04 00:56] VITALS: BP 140/74; PULSE 70
== END 2022-04-04 01:05 | disposition home or self-care (01) ==
LOC: DL.ED 00:35
DX: K02.9 Dental caries, unspecified (principal); E78.00 Pure hypercholesterolemia, unspecified; I10 Essential (primary) hypertension; E11.9 Type 2 diabetes mellitus without complications; E66.9 Obesity, unspecified; Z68.33 Body mass index [BMI] 33.0-33.9, adult; Z79.4 Long term (current) use of insulin; Z79.899 Other long term (current) drug therapy
CPT/HCPCS: 99282; A9270

== ENCOUNTER 2022-04-10 17:23 | Emergency (ER) | payer MEDICAID ==
[2022-04-10] MEDS ORDERED: Phenazopyridine 95 MG Tab PO ONE (17:24)
[2022-04-10 18:20] VITALS: BP 125/62; PULSE 80
[2022-04-10] MEDS ORDERED: cefTRIAXone 1 GM, Lidocaine 1% 2.1 ML IM ONE ×2 (18:47)
[2022-04-10] MEDS ORDERED: Phenazopyridine 95 MG Tab ONE (18:56)
== END 2022-04-10 19:06 | disposition home or self-care (01) ==
LOC: DL.ED 17:23
DX: N30.01 Acute cystitis with hematuria (principal); E78.00 Pure hypercholesterolemia, unspecified; I10 Essential (primary) hypertension; E11.21 Type 2 diabetes mellitus with diabetic nephropathy; E66.9 Obesity, unspecified; Z68.33 Body mass index [BMI] 33.0-33.9, adult; Z79.4 Long term (current) use of insulin; Z79.82 Long term (current) use of aspirin; Z79.899 Other long term (current) drug therapy
CPT/HCPCS: 96372; 99283; J0696; A9270-GY

== ENCOUNTER 2022-04-27 17:40 | Emergency (ER) | payer MEDICAID ==
[2022-04-27 18:19] VITALS: BP 110/85; PULSE 107
[2022-04-27 18:25] LABS: CORONAVIRUS COVID-19 NAA NEGATIVE (NEGATIVE)
[2022-04-27 18:27] LABS: ANION GAP 10.3 mEq/L (7-13)
== END 2022-04-27 19:32 | disposition home or self-care (01) ==
LOC: DL.ED 17:40
DX: R07.89 Other chest pain (principal); E78.00 Pure hypercholesterolemia, unspecified; I10 Essential (primary) hypertension; E11.9 Type 2 diabetes mellitus without complications; E66.9 Obesity, unspecified; Z68.33 Body mass index [BMI] 33.0-33.9, adult; Z79.899 Other long term (current) drug therapy; Z79.4 Long term (current) use of insulin; Z79.82 Long term (current) use of aspirin; Z79.84 Long term (current) use of oral hypoglycemic drugs; Z87.891 Personal history of nicotine dependence; Z20.822 Contact with and (suspected) exposure to COVID-19
CPT/HCPCS: 0240U; 36415; 71045; 80053; 83605; 84484; 85025; 85379; 85610; 93005; 99285

== ENCOUNTER 2022-07-20 22:13 | Emergency (ER) | payer MEDICAID ==
[2022-07-21] MEDS ORDERED: Lidocaine 1% 10 ML MDV INJECT ONE (02:15)
[2022-07-21] MEDS ORDERED: Bupivacaine 0.25% 10 ML SDV INJECT ONE (02:15)
[2022-07-21 04:20] VITALS: BP 122/75; PULSE 65
== END 2022-07-21 04:22 | disposition home or self-care (01) ==
LOC: DL.ED 22:13
DX: K02.9 Dental caries, unspecified (principal); I10 Essential (primary) hypertension; E78.00 Pure hypercholesterolemia, unspecified; E11.9 Type 2 diabetes mellitus without complications; E66.9 Obesity, unspecified; Z68.32 Body mass index [BMI] 32.0-32.9, adult; Z79.4 Long term (current) use of insulin; Z79.899 Other long term (current) drug therapy; Z79.82 Long term (current) use of aspirin; Z79.84 Long term (current) use of oral hypoglycemic drugs
CPT/HCPCS: 64400; 99282; J3490

== ENCOUNTER 2022-09-22 00:06 | Emergency (ER) | payer MEDICAID ==
[2022-09-22] MEDS ORDERED: Lidocaine 1% 10 ML MDV INJECT ONE (00:23)
[2022-09-22 00:25] VITALS: BP 125/64; PULSE 83
[2022-09-22] MEDS ORDERED: Lidocaine 1% 5 ML VIAL ONE (00:26)
[2022-09-22] MEDS ORDERED: Sulfamethoxazole/Trimethoprim 800-160 MG Tab PO ONE (00:38)
== END 2022-09-22 00:51 | disposition home or self-care (01) ==
LOC: DL.ED 00:06
DX: L02.414 Cutaneous abscess of left upper limb (principal); E78.00 Pure hypercholesterolemia, unspecified; I10 Essential (primary) hypertension; E11.21 Type 2 diabetes mellitus with diabetic nephropathy; M19.90 Unspecified osteoarthritis, unspecified site; E66.9 Obesity, unspecified; Z68.32 Body mass index [BMI] 32.0-32.9, adult; Z79.4 Long term (current) use of insulin; Z79.82 Long term (current) use of aspirin; Z79.899 Other long term (current) drug therapy
CPT/HCPCS: 10060; 87070; 87077; 87186; 99283; 99283-25; A9270-GY; J3490

== ENCOUNTER 2024-08-02 19:53 | Emergency (ER) | payer MEDICAID ==
[2024-08-02 20:35] LABS: BASOPHILS PERCENT AUTO 0.3 % (0.0-1.0); EOSINOPHILS PERCENT AUTO 2.1 % (1.0-3.0); HEMATOCRIT 39.6 % (40.0-54.0); HEMOGLOBIN 13.7 g/dL (14.0-18.0); MEAN CORPUSCULAR HEMOGLOBIN 31.9 pg (27.0-34.0); MEAN CORPUSCULAR HGB CONC 34.6 g/dL (33.0-35.0); MEAN CORPUSCULAR VOLUME 92.1 fL (80-100); MONOCYTES PERCENT AUTO 7.7 % (2-8); NEUTROPHILS PERCENT AUTO 69.9 % (42.2-75.2); PLATELET COUNT,PLT 321 10^3/uL (150-450)
[2024-08-02 20:47] LABS: A/G RATIO 0.74; ALANINE AMINOTRANSFERASE,ALT 22 U/L (16-63); ALBUMIN 3.2 g/dL (3.4-5.0); ALKALINE PHOSPHATASE 86 U/L (46-116); ANION GAP 11.1 mEq/L (7-13); ASPARTATE AMNIOTRANSFERASE,AST 9 U/L (15-37); BILIRUBIN TOTAL 0.6 mg/dL (0.2-1.0); BLOOD UREA NITROGEN,BUN 24 mg/dL (7-18); BUN/CREATININE RATIO 23.5 (No establ ref range); CALCIUM 8.9 mg/dL (8.5-10.1); CARBON DIOXIDE,CO2 29 mmol/L (21-32); CHLORIDE,CL 103 mmol/L (98-107); CREATININE 1.02 mg/dL (0.70-1.30); EST CRCL DRUG DOSING (CG) 80.16 mL/min; ESTIMATED GFR 83 mL/min (>=60); GLUCOSE RANDOM 227 mg/dL (70-99); LIPASE 68 U/L (16-77); POTASSIUM,K 4.1 mmol/L (3.5-5.1); PROTEIN TOTAL,TP 7.5 g/dL (6.4-8.2); SODIUM,NA 139 mmol/L (136-145)
[2024-08-02 20:48] LABS: ETHANOL BLOOD MEDICAL < 3 mg/dL (0)
[2024-08-02 22:02] LABS: APPEARANCE,URINE CLEAR (CLEAR); BILIRUBIN,URINE NEGATIVE (NEGATIVE); COLOR,URINE YELLOW (YELLOW); GLUCOSE,URINE 100 (NEGATIVE); KETONES,URINE NEGATIVE (NEGATIVE); LEUKOCYTE ESTERASE,URINE NEGATIVE (NEGATIVE); NITRITE,URINE NEGATIVE (NEGATIVE); OCCULT BLOOD,URINE NEGATIVE (NEGATIVE); PH,URINE 6.5 (5.0-9.0); PROTEIN,URINE 30 (NEGATIVE)
[2024-08-02 22:08] LABS: AMPHETAMINES,URINE NEGATIVE (NEGATIVE); BARBITURATES,URINE NEGATIVE (NEGATIVE); BENZODIAZEPINE,URINE NEGATIVE (NEGATIVE); MDMA (ECSTASY), URINE NEGATIVE (NEGATIVE); METHADONE,URINE NEGATIVE (NEGATIVE); METHAMPHETAMINES,URINE NEGATIVE (NEGATIVE); OPIATES,URINE NEGATIVE (NEGATIVE); OXYCODONE,URINE NEGATIVE (NEGATIVE); PHENCYCLIDINE,URINE NEGATIVE (NEGATIVE); TCA,URINE NEGATIVE (NEGATIVE)
[2024-08-02 22:12] LABS: AMORPHOUS SEDIMENT,URINE FEW /HPF (NOT SEEN); BACTERIA,URINE FEW /HPF (0-FEW/HPF); EPITHELIAL CELLS,URINE FEW /HPF (NOT SEEN); MUCUS,URINE MODERATE /LPF (NOT SEEN); RBC,URINE 0-5 /HPF (0-5); WBC,URINE 0-5 /HPF (0-5/HPF)
[2024-08-02] MEDS: Sodium Chloride 0.9% 1,000 ML IV ONE ×2 (22:50→23:48)
[2024-08-03 00:38] VITALS: BP 141/82; PULSE 65
== END 2024-08-03 00:35 | disposition home or self-care (01) ==
LOC: DL.ED 19:53
DX: R07.2 Precordial pain (principal); E86.9 Volume depletion, unspecified; R00.2 Palpitations; I10 Essential (primary) hypertension; E78.00 Pure hypercholesterolemia, unspecified; M19.90 Unspecified osteoarthritis, unspecified site; E11.9 Type 2 diabetes mellitus without complications; E66.9 Obesity, unspecified; J44.9 Chronic obstructive pulmonary disease, unspecified; Z79.4 Long term (current) use of insulin; Z79.82 Long term (current) use of aspirin; Z79.84 Long term (current) use of oral hypoglycemic drugs; Z79.899 Other long term (current) drug therapy; Z68.32 Body mass index [BMI] 32.0-32.9, adult
CPT/HCPCS: 36415; 71045; 80053; 80305; 80307; 81001; 83690; 83735; 84484; 85025; 85379; 93005; 96360; 96361; 99285; J7030

== ENCOUNTER 2024-09-27 11:51 | Emergency (ER) | payer MEDICAID ==
[2024-09-27 12:20] LABS: BASOPHILS PERCENT AUTO 0.4 % (0.0-1.0); EOSINOPHILS PERCENT AUTO 0.9 % (1.0-3.0); HEMATOCRIT 46.5 % (40.0-54.0); HEMOGLOBIN 15.8 g/dL (14.0-18.0); LYMPHOCYTES PERCENT AUTO 14.7 % (20.5-50.1); MEAN CORPUSCULAR HEMOGLOBIN 31.2 pg (27.0-34.0); MEAN CORPUSCULAR VOLUME 91.7 fL (80-100); MONOCYTES PERCENT AUTO 6.1 % (2-8); NEUTROPHILS PERCENT AUTO 77.9 % (42.2-75.2); PLATELET COUNT,PLT 311 10^3/uL (150-450); RED BLOOD CELL COUNT 5.07 10^6/uL (4.6-6.2); WHITE BLOOD CELL COUNT,WBC 10.3 10^3/uL (5.0-10.0)
[2024-09-27 12:37] LABS: B-TYPE NATRIURETIC PEPTIDE,BNP 7 pg/ml (0-100)
[2024-09-27 12:43] LABS: ANION GAP 15.7 mEq/L (7-13); BLOOD UREA NITROGEN,BUN 28 mg/dL (7-18); CALCIUM 9.8 mg/dL (8.5-10.1); CARBON DIOXIDE,CO2 26 mmol/L (21-32); CHLORIDE,CL 103 mmol/L (98-107); CREATININE 0.95 mg/dL (0.70-1.30); GLUCOSE RANDOM 229 mg/dL (70-99); POTASSIUM,K 4.7 mmol/L (3.5-5.1); SODIUM,NA 140 mmol/L (136-145)
[2024-09-27 12:46] LABS: ESTIMATED GFR 90 mL/min (>=60)
[2024-09-27 12:53] VITALS: BP 108/65; PULSE 65
== END 2024-09-27 13:03 | disposition home or self-care (01) ==
LOC: DL.ED 11:51
DX: R00.2 Palpitations (principal); Z79.4 Long term (current) use of insulin; E78.00 Pure hypercholesterolemia, unspecified; I10 Essential (primary) hypertension; E66.9 Obesity, unspecified; Z79.82 Long term (current) use of aspirin; Z79.899 Other long term (current) drug therapy
CPT/HCPCS: 36415; 80048; 83735; 83880; 84484; 85025; 93005; 93010; 99284; 99285

== ENCOUNTER 2025-02-05 20:31 | Emergency (ER) | payer MEDICAID ==
[2025-02-05] MEDS ORDERED: Sodium Chloride 0.9% 10 ML Syringe FLUSH PRN (20:46)
[2025-02-05 21:09] LABS: BASOPHILS PERCENT AUTO 0.3 % (0.0-1.0); EOSINOPHILS PERCENT AUTO 0.4 % (1.0-3.0); LYMPHOCYTES PERCENT AUTO 10.6 % (20.5-50.1); MONOCYTES PERCENT AUTO 5.7 % (2-8); NEUTROPHILS PERCENT AUTO 83.0 % (42.2-75.2); PLATELET COUNT,PLT 320 10^3/uL (150-450); RED BLOOD CELL COUNT 4.15 10^6/uL (4.6-6.2); WHITE BLOOD CELL COUNT,WBC 10.8 10^3/uL (5.0-10.0)
[2025-02-05 21:29] LABS: ALANINE AMINOTRANSFERASE,ALT 14.0 U/L (16-63); ASPARTATE AMNIOTRANSFERASE,AST 9.0 U/L (15-37); BILIRUBIN TOTAL 0.9 mg/dL (0.2-1.0); BLOOD UREA NITROGEN,BUN 23.0 mg/dL (7-18); CARBON DIOXIDE,CO2 27.0 mmol/L (21-32); CHLORIDE,CL 99.0 mmol/L (98-107); CREATININE 1.17 mg/dL (0.70-1.30); EST CRCL DRUG DOSING (CG) 68.83 mL/min; GLUCOSE RANDOM 253.0 mg/dL (70-99); POTASSIUM,K 4.0 mmol/L (3.5-5.1); PROTEIN TOTAL,TP 7.6 g/dL (6.4-8.2); SODIUM,NA 133.0 mmol/L (136-145)
[2025-02-05 21:32] LABS: A/G RATIO 0.58; ESTIMATED GFR 70.0 mL/min (>=60); LACTIC ACID 1.3 mmol/L (0.4-2.0)
[2025-02-05 22:23] LABS: APPEARANCE,URINE CLEAR (CLEAR); GLUCOSE,URINE 500 (NEGATIVE); OCCULT BLOOD,URINE SMALL (NEGATIVE)
[2025-02-05 22:31] LABS: EPITHELIAL CELLS,URINE FEW /HPF (NOT SEEN)
[2025-02-05 23:39] VITALS: BP 124/58; PULSE 76
[2025-02-05] MEDS: Take Home: Cyclobenzaprine 10 MG Tab, 4 Tab Pack PO ONE (23:41)
== END 2025-02-05 23:46 | disposition home or self-care (01) ==
LOC: DL.ED 20:31
DX: M54.50 Low back pain, unspecified (principal); E78.00 Pure hypercholesterolemia, unspecified; I10 Essential (primary) hypertension; E11.21 Type 2 diabetes mellitus with diabetic nephropathy; Z79.4 Long term (current) use of insulin; Z79.82 Long term (current) use of aspirin; Z79.899 Other long term (current) drug therapy; Z79.84 Long term (current) use of oral hypoglycemic drugs
CPT/HCPCS: 36415; 71045; 74176; 80053; 81001; 83605; 83690; 84145; 85025; 87040; 87428; 96360; 96361; 99284; A9270; J7030; 87077; 87186

== ENCOUNTER 2025-02-06 18:25 | Emergency (ER) | payer MEDICAID ==
[2025-02-06] MEDS ORDERED: Sodium Chloride 0.9% 10 ML Syringe FLUSH PRN (18:28)
[2025-02-06 19:01] LABS: BASOPHILS PERCENT AUTO 0.3 % (0.0-1.0); EOSINOPHILS PERCENT AUTO 0.3 % (1.0-3.0); LYMPHOCYTES PERCENT AUTO 13.4 % (20.5-50.1); MONOCYTES PERCENT AUTO 7.7 % (2-8); NEUTROPHILS PERCENT AUTO 78.3 % (42.2-75.2); PLATELET COUNT,PLT 293 10^3/uL (150-450); RED BLOOD CELL COUNT 3.94 10^6/uL (4.6-6.2); WHITE BLOOD CELL COUNT,WBC 9.4 10^3/uL (5.0-10.0)
[2025-02-06 19:18] LABS: ALANINE AMINOTRANSFERASE,ALT 16.0 U/L (16-63); ASPARTATE AMNIOTRANSFERASE,AST 9.0 U/L (15-37); BILIRUBIN TOTAL 0.9 mg/dL (0.2-1.0); BLOOD UREA NITROGEN,BUN 18.0 mg/dL (7-18); CARBON DIOXIDE,CO2 26.0 mmol/L (21-32); CHLORIDE,CL 99.0 mmol/L (98-107); CREATININE 1.08 mg/dL (0.70-1.30); EST CRCL DRUG DOSING (CG) 74.56 mL/min; GLUCOSE RANDOM 253.0 mg/dL (70-99); POTASSIUM,K 4.0 mmol/L (3.5-5.1); PROTEIN TOTAL,TP 7.2 g/dL (6.4-8.2); SODIUM,NA 132.0 mmol/L (136-145)
[2025-02-06 19:20] LABS: A/G RATIO 0.57; ESTIMATED GFR 77.0 mL/min (>=60)
[2025-02-06 19:21] LABS: LACTIC ACID 0.8 mmol/L (0.4-2.0)
[2025-02-06 20:29] LABS: APPEARANCE,URINE CLEAR (CLEAR); GLUCOSE,URINE 100 (NEGATIVE); OCCULT BLOOD,URINE MODERATE (NEGATIVE)
[2025-02-06] MEDS: Iopamidol 755 Mg/ML 100 ML Bottle IVPUSH ONE (20:36)
[2025-02-06 20:40] VITALS: BP 150/69; PULSE 68
[2025-02-06 20:40] LABS: EPITHELIAL CELLS,URINE FEW /HPF (NOT SEEN)
[2025-02-06] MEDS: Ketorolac 30 MG/ML SDV IVPUSH ONE (20:42)
[2025-02-06] MEDS: Iopamidol 612 MG/ML 100 ML Bottle IVPUSH ONE (21:24)
[2025-02-06] MEDS: Ondansetron 4 MG/2 ML SDV IVPUSH ONE (22:00)
== END 2025-02-06 21:08 | disposition home or self-care (01) ==
LOC: DL.ED 18:25
DX: N30.01 Acute cystitis with hematuria (principal); I10 Essential (primary) hypertension; E78.00 Pure hypercholesterolemia, unspecified; E11.21 Type 2 diabetes mellitus with diabetic nephropathy; M19.90 Unspecified osteoarthritis, unspecified site; Z79.82 Long term (current) use of aspirin; Z79.4 Long term (current) use of insulin; Z79.84 Long term (current) use of oral hypoglycemic drugs; Z79.899 Other long term (current) drug therapy
CPT/HCPCS: 36415; 74177; 80053; 81001; 83605; 83735; 84145; 84484; 85025; 86140; 87040; 87077; 87086; 87088; 87186; 93005; 96374; 96375; 99284; J0696; J1885; J2405; Q9967; 86618; 93010

== ENCOUNTER 2025-02-07 10:51 | Inpatient (IN) | payer MEDICAID ==
[2025-02-07] MEDS ORDERED: 50% Dextrose in Water 50 ML Syringe IVPUSH PRN (14:18)
[2025-02-07 14:37] LABS: GAMMA GLUTAMYL TRANSFERASE,GGT 35.0 U/L (15-85); PHOSPHORUS 3.3 mg/dL (2.6-4.7)
[2025-02-07] MEDS: Insulin Glarg,Human.Rec.Analog 100 Unit/ML 10 ML Vial SUBCUT SCH (21:15)
[2025-02-07] MEDS: Heparin Sodium 5,000 Units/ML Vial SUBCUT SCH (21:16)
[2025-02-08 07:23] LABS: BASOPHILS PERCENT AUTO 0.2 % (0.0-1.0); EOSINOPHILS PERCENT AUTO 1.1 % (1.0-3.0); LYMPHOCYTES PERCENT AUTO 13.9 % (20.5-50.1); MONOCYTES PERCENT AUTO 8.7 % (2-8); NEUTROPHILS PERCENT AUTO 76.1 % (42.2-75.2); PLATELET COUNT,PLT 302 10^3/uL (150-450); RED BLOOD CELL COUNT 3.65 10^6/uL (4.6-6.2); WHITE BLOOD CELL COUNT,WBC 9.0 10^3/uL (5.0-10.0)
[2025-02-08 07:42] LABS: BLOOD UREA NITROGEN,BUN 17.0 mg/dL (7-18); CARBON DIOXIDE,CO2 29.0 mmol/L (21-32); CHLORIDE,CL 106.0 mmol/L (98-107); CREATININE 0.99 mg/dL (0.70-1.30); EST CRCL DRUG DOSING (CG) 81.34 mL/min; ESTIMATED GFR 86.0 mL/min (>=60); GLUCOSE RANDOM 123.0 mg/dL (70-99); PHOSPHORUS 3.6 mg/dL (2.6-4.7); POTASSIUM,K 4.6 mmol/L (3.5-5.1); SODIUM,NA 139.0 mmol/L (136-145); VANCOMYCIN RANDOM 17.2 ug/mL (No Normal Range)
[2025-02-08 12:12] VITALS: BP 128/63; PULSE 63
== END 2025-02-08 14:45 | DRG 690 ==
LOC: DL.MS 12:28
PROVIDERS: ADMIT Internal Medicine; ATTEND Internal Medicine
DX: N39.0 Urinary tract infection, site not specified (principal); R78.81 Bacteremia; E66.9 Obesity, unspecified; G43.909 Migraine, unspecified, not intractable, without status migrainosus; H54.7 Unspecified visual loss; E78.00 Pure hypercholesterolemia, unspecified; I10 Essential (primary) hypertension; E11.21 Type 2 diabetes mellitus with diabetic nephropathy; M19.90 Unspecified osteoarthritis, unspecified site; M54.9 Dorsalgia, unspecified; E11.42 Type 2 diabetes mellitus with diabetic polyneuropathy; G89.29 Other chronic pain; E11.9 Type 2 diabetes mellitus without complications; D64.9 Anemia, unspecified; Z98.890 Other specified postprocedural states; Z68.31 Body mass index [BMI] 31.0-31.9, adult; Z79.84 Long term (current) use of oral hypoglycemic drugs; Z79.82 Long term (current) use of aspirin; Z79.899 Other long term (current) drug therapy
CPT/HCPCS: 36415; 80048; 80202; 82947; 82977; 83036; 83735; 84075; 84100; 84484; 85025; 93005; 99223; 99239; A9270-GY; J1644; J1815-GY; J2543; J3371; J7050

== ENCOUNTER 2025-06-05 01:43 | Emergency (ER) | payer MEDICAID ==
[2025-06-05] MEDS ORDERED: Sodium Chloride 0.9% 10 ML Syringe FLUSH PRN (01:55)
[2025-06-05 02:04] LABS: BASOPHILS PERCENT AUTO 0.7 % (0.0-1.0); EOSINOPHILS PERCENT AUTO 3.7 % (1.0-3.0); LYMPHOCYTES PERCENT AUTO 29.0 % (20.5-50.1); MONOCYTES PERCENT AUTO 7.8 % (2-8); NEUTROPHILS PERCENT AUTO 58.8 % (42.2-75.2); PLATELET COUNT,PLT 241 10^3/uL (150-450); RED BLOOD CELL COUNT 4.12 10^6/uL (4.6-6.2); WHITE BLOOD CELL COUNT,WBC 6.8 10^3/uL (5.0-10.0)
[2025-06-05 02:25] LABS: A/G RATIO 1.00; ALANINE AMINOTRANSFERASE,ALT 20 U/L (16-63); ASPARTATE AMNIOTRANSFERASE,AST 11 U/L (15-37); BILIRUBIN TOTAL 0.6 mg/dL (0.2-1.0); BLOOD UREA NITROGEN,BUN 22 mg/dL (7-18); CARBON DIOXIDE,CO2 26 mmol/L (21-32); CHLORIDE,CL 106 mmol/L (98-107); CREATININE 1.02 mg/dL (0.70-1.30); EST CRCL DRUG DOSING (CG) 78.95 mL/min; ESTIMATED GFR 83 mL/min (>=60); ETHANOL BLOOD MEDICAL < 3 mg/dL (0); GLUCOSE RANDOM 269 mg/dL (70-99); POTASSIUM,K 4.1 mmol/L (3.5-5.1); PROTEIN TOTAL,TP 6.2 g/dL (6.4-8.2); SODIUM,NA 139 mmol/L (136-145)
[2025-06-05 02:28] LABS: LACTIC ACID 1.2 mmol/L (0.4-2.0)
[2025-06-05 02:52] LABS: APPEARANCE,URINE CLEAR (CLEAR); GLUCOSE,URINE 500 (NEGATIVE); OCCULT BLOOD,URINE TRACE-INTACT (NEGATIVE)
[2025-06-05 02:55] LABS: AMPHETAMINES,URINE NEGATIVE (NEGATIVE); BARBITURATES,URINE NEGATIVE (NEGATIVE); MDMA (ECSTASY), URINE NEGATIVE (NEGATIVE); METHAMPHETAMINES,URINE NEGATIVE (NEGATIVE); OPIATES,URINE NEGATIVE (NEGATIVE); OXYCODONE,URINE NEGATIVE (NEGATIVE); PHENCYCLIDINE,URINE NEGATIVE (NEGATIVE); TCA,URINE NEGATIVE (NEGATIVE)
[2025-06-05 03:02] LABS: EPITHELIAL CELLS,URINE OCCASIONAL /HPF (NOT SEEN)
[2025-06-05 04:38] VITALS: BP 144/76; PULSE 64
== END 2025-06-05 04:36 | disposition home or self-care (01) ==
LOC: DL.ED 01:43
DX: R07.89 Other chest pain (principal); E78.00 Pure hypercholesterolemia, unspecified; I10 Essential (primary) hypertension; E11.40 Type 2 diabetes mellitus with diabetic neuropathy, unspecified; Z79.84 Long term (current) use of oral hypoglycemic drugs; Z79.899 Other long term (current) drug therapy; Z79.82 Long term (current) use of aspirin
CPT/HCPCS: 36415; 71045; 80053; 80305-QW; 80307; 81001; 83605; 83735; 83880; 84145; 84484; 85025; 85379; 86140; 93005; 93010; 99284; 99285